=== PATIENT | male | born 1930 | race Caucasian/White ===

== ENCOUNTER 2016-05-28 11:06 | Emergency (ER) | payer MEDICARE ==
[2016-05-28] MEDS ORDERED: MORPHINE SULFATE 5 MG/ML PFS IVP ONE ×2 (13:01→15:00)
[2016-05-28] MEDS ORDERED: PROMETHAZINE HCL 25 MG/ML VIAL IVP ONE (13:01)
[2016-05-28 15:03] LABS: URINE APPEARANCE CLEAR; URINE BILIRUBIN NEGATIVE (NEGATIVE); URINE BLOOD NEGATIVE (NEGATIVE); URINE COLOR YELLOW; URINE GLUCOSE (UA) NEGATIVE (NEGATIVE); URINE KETONE NEGATIVE (NEGATIVE); URINE LEUKOCYTE ESTERASE NEGATIVE (NEGATIVE); URINE NITRITE NEGATIVE (NEGATIVE); URINE PROTEIN NEGATIVE (NEGATIVE); URINE UROBILINOGEN 0.2 E.U./dL (0.20 - 1.00)
--- NOTE | 2016-05-28 15:36 | Emergency Department Record ---
History of Present Illness - General Chief Complaint: Back Pain/Injury Stated Complaint: LOWER BACK/GENTALIA PAIN Time Seen by Provider: 05/28/16 11:57 Source: Patient, Family Mode of Arrival: Ambulatory Limitations: No limitations - History of Present Illness Initial Comments: pt has flank and back and hip pain. pt states this is different then any back pain hes ever had. he has recently had blood in his urine and he has an appt with a urologist but he was told to come here for further evaluation Onset/Timin -: Days(s) Similar Symptoms Previously: Yes Place: Other Severity scale (1-10): 4 Quality: Aching Consistency: Constant Improves With: Sitting upright Worsens With: Movement Context: Unknown Treatments Prior to Arrival: Prescription analgesics - Related Data Home Medications Medication Instructions Recorded Confirmed Last Taken Acetaminophen [Tylenol Extra 500 mg PO ASDIR PRN 04/06/16 05/28/16 Unknown Strength] Acetaminophen with Codeine 1 tab PO ASDIR PRN 04/06/16 05/28/16 05/28/16 [Tylenol with Codeine #3] Aspirin [Aspirin EC] 81 mg PO DAILY 04/06/16 05/28/16 05/27/16 Beclomethasone Dipropionate [Qvar] 8.7 gm IH DAILY 04/06/16 05/28/16 05/28/16 Fluticasone Propionate [Flovent 2 puff EACH NARES DAILY 04/06/16 04/06/16 Hfa] Furosemide [Lasix] 20 mg PO DAILY PRN 04/06/16 05/28/16 Unknown Isosorbide Mononitrate [Imdur] 10 mg PO BID 04/06/16 05/28/16 05/28/16 Loratadine [Alavert] 10 mg PO DAILY 04/06/16 04/06/16 05/28/16 Potassium Chloride [Klor-Con] 10 meq PO DAILY PRN 04/06/16 05/28/16 Unknown Ranitidine HCl [Zantac] 150 mg PO QHS 04/06/16 05/28/16 05/27/16 Solifenacin Succinate [Vesicare] 5 mg PO ASDIR 04/06/16 04/06/16 05/28/16 Tiotropium [place] [Spiriva] 18 mcg IH ASDIR 1204/06/16 05/28/16 Previous Rx's Medication Instructions Recorded Docusate Sodium [Colace] 100 mg PO QHS #20 cap 05/28/16 Hydrocodone/Acetaminophen [[place] 0.5 - 1 tab PO TID PRN #10 tab 05/28/16 5mg/325mg] Allergies Allergy/AdvReac Type Severity Reaction Status Date / Time Sulfa (Sulfonamide Allergy Unknown PT UNSURE Verified 04/06/16 11:41 Antibiotics) OF REACTION [SULFA (SULFONAMIDE ANTIBIOTICS)] Travel Screening - Travel/Exposure Within Last 30 Days Have you traveled within the last 30 days?: No - Travel/Exposure Within Last Year Have you traveled outside the [place] in the last year?: No - Additonal Travel Details Have you been exposed to anyone with a communicable illness?: No - Travel Symptoms Symptom Screening: None Review of Systems Reviewed: No additional complaints except as noted below Constitutional: Reports: As per HPI. Denies: Chills, Fever, Malaise, Night sweats, Weakness, Weight change Eyes: Reports: As per HPI. Denies: Eye discharge, Eye pain, Photophobia, Vision change ENT: Reports: As per HPI. Denies: Congestion, Dental pain, Ear pain, Epistaxis , Hearing loss, Throat pain Respiratory: Reports: As per HPI. Denies: Cough, Dyspnea, Hemoptysis, Stridor, Wheezes Cardiovascular: Reports: As per HPI. Denies: Arrhythmia, Chest pain, Dyspnea on exertion, Edema, Murmurs, Orthopnea, Palpitations, Paroxysmal nocturnal dyspnea, Rheumatic Fever, Syncope Endocrine: Reports: As per HPI. Denies: Fatigue, Heat or cold intolerance, Polydipsia, Polyuria Gastrointestinal: Reports: As per HPI. Denies: Abdominal pain, Constipation, Diarrhea, Hematemesis, Hematochezia, Melena, Nausea, Vomiting Genitourinary: Reports: As per HPI. Denies: Dysuria, Frequency, Hematuria, Incontinence, Retention, Testicular pain, Testicular mass, Urgency Musculoskeletal: Reports: As per HPI. Denies: Arthralgia, Back pain, Gout, Joint swelling, Myalgia, Neck pain Skin: Reports: As per HPI. Denies: Bruising, Change in color, Change in hair/ nails, Lesions, Pruritus, Rash Neurological: Reports: As per HPI. Denies: Abnormal gait, Confusion, Headache, Numbness, Paresthesias, Seizure, Tingling, Tremors, Vertigo, Weakness Psychiatric: Reports: As per HPI. Denies: Anxiety, Auditory hallucinations, Depression, Homicidal thoughts, Suicidal thoughts, Visual hallucinations Hematological/Lymphatic: Reports: As per HPI. Denies: Anemia, Blood Clots, Easy bleeding, Easy bruising, Swollen glands Past Medical History - SOCIAL HISTORY Smoking Status: Former smoker - RESPIRATORY Hx Respiratory Disorders: Yes Hx COPD: Yes - CARDIOVASCULAR Hx Cardio Disorders: Yes Hx Abnormal EKG: Yes Hx Cardiac Cath: Yes Hx Heart Attack: Yes Hx Irregular Heartbeat: Yes - NEURO Hx Neuro Disorders: No - GI Hx GI Disorders: No - Hx Genitourinary Disorders: Yes Hx Prostate Problems: Yes - ENDOCRINE Hx Endocrine Disorders: No - MUSCULOSKELETAL Hx Musculoskeletal Disorders: Yes Hx Arthritis: Yes (bilateral shoulders) - PSYCH Hx Psych Problems: No - HEMATOLOGY/ONCOLOGY Hx Hematology/Oncology Disorders: No Family Medical History Any Significant Family History?: Yes Hx Cancer: Mother Hx Heart Disease: Father Hx Stroke: Father Physical Exam - General General Appearance: Alert, Oriented x3, Cooperative, Moderate distress - Head Head exam: Normal inspection - Eye Eye exam: Normal appearance, PERRL, EOMI Pupils: Normal accommodation - ENT ENT exam: Normal exam, Mucous membranes moist, Normal external ear exam, Normal orophraynx Ear exam: Normal external inspection. negative: External canal tenderness Nasal Exam: Normal inspection. negative: Discharge, Sinus tenderness Mouth exam: Normal external inspection, Tongue normal Teeth exam: Normal inspection. negative: Dental caries Throat exam: Normal inspection. negative: Tonsillar erythema, Tonsillar exudate - Neck Neck exam: Normal inspection, Full ROM. negative: Tenderness - Respiratory Respiratory exam: Normal lung sounds bilaterally. negative: Respiratory distress - Cardiovascular Cardiovascular Exam: Regular rate, Normal rhythm, Normal heart sounds - GI/Abdominal GI/Abdominal exam: Soft, Normal bowel sounds. negative: Tenderness - Rectal Rectal exam: Deferred - exam: Deferred - Extremities Extremities exam: Normal inspection, Full ROM, Normal capillary refill. negative: Tenderness - Back Back exam: Reports: Normal inspection, CVA tenderness (L), Muscle spasm, Tenderness. Denies: Full ROM, Rash noted - Neurological Neurological exam: Alert, CN II-XII intact, Normal gait, Oriented X3 - Psychiatric Psychiatric exam: Normal affect, Normal mood - Skin Skin exam: Dry, Intact, Normal color, Warm Course Vital Signs 05/28/16 05/28/16 11:42 15:02 Temperature 97.7 F Pulse Rate 82 Pulse Rate [ 65 Left] Respiratory 20 20 Rate Blood Pressure 99/76 Blood Pressure 128/75 [Left Arm] Pulse Ox 96 93 L - Reevaluation(s) Reevaluation #1: 05/28/16 15:35 ct neg for acute aorta or renal pathology Medical Decision Making - Lab Data Lab Results 05/28/16 Range/Units 15:00 Urine Color Yellow Urine Appearance Clear Urine pH 6.0 (5.0-8.0) Ur Specific [place] <= 1.005 (1.002-1.030) Urine Protein Negative (NEGATIVE) Urine Glucose (UA) Negative (NEGATIVE) Urine Ketones Negative (NEGATIVE) Urine Blood Negative (NEGATIVE) Urine Nitrite Negative (NEGATIVE) Urine Bilirubin Negative (NEGATIVE) Urine Urobilinogen 0.2 (0.20 - 1.00) E.U./dL Ur Leukocyte Esterase Negative (NEGATIVE) Disposition Disposition: Discharge Clinical Impression: Lumbar radiculopathy Disposition: Home, Self-Care Condition: (1) Good Instructions: Lumbar Radiculopathy (ED) Additional Instructions: follow up with family doctor tomorrow. return sooner if worse. ice or moist heat to back. motrin with food. Prescriptions: Docusate Sodium [Colace] 100 mg PO QHS #20 cap Hydrocodone/Acetaminophen [[place] 5mg/325mg] 0.5 - 1 tab PO TID PRN #10 tab PRN Reason: Pain - General Forms: Patient Portal Access
--- NOTE | 2016-05-31 14:12 | CT SCAN REPORT ---
EXAM: CT OF THE ABDOMEN AND PELVIS WITHOUT CONTRAST HISTORY: LOW BACK AND HIP PAIN. BLOOD CLOTS IN URINE. TECHNIQUE: Routine thin collimation helical CT examination of the abdomen and pelvis was performed without oral or intravenous contrast administration. Lack of oral and IV contrast utilization limits evaluation of the bowel and solid viscera respectively. Comparison: CT of the abdomen and pelvis with contrast dated 12/08/09. FINDINGS: Paraseptal emphysema is suggested in the lung bases with mild superimposed atelectasis. A couple small nodules are noted in the anterior right lung base, the largest of which measures 3 mm in diameter. These are stable since 2010 and are consistent with post inflammatory nodules. A similar subpleural nodule is noted in the anterior left lower lobe measuring 3 mm, also unchanged and post inflammatory. No pleural or pericardial effusion. The heart is not enlarged. Post median sternotomy changes redemonstrated. A moderate sized hiatal hernia persist. A tiny hypodense lesion is noted in the high left liver lobe and another more inferiorly in the left liver lobe. These are stable and are consistent with cysts. A previously demonstrated cyst in the high right liver lobe is not visualized with confidence. No new suspicious hepatic lesion is seen. The spleen, pancreas, and adrenal glands are normal in appearance. The gallbladder is surgically absent. No biliary ductal dilatation is seen. The previously demonstrated cyst arising from the lateral lower pole of the left kidney measuring 1.5 cm is stable. No new suspicious renal mass nor nephrolithiasis. No gross hydronephrosis. No definite ureteral calculus is seen though the ureters are not optimally visualized distally due to adjacent unopacified bowel loops and vasculature. No intrinsic urinary bladder abnormality is seen though it is moderately distended. Post TURP defect is suspected versus surgical absence of the prostate. No gross bowel dilatation nor bowel wall thickening. There is diverticulosis scattered throughout the colon most pronounced distally without evidence of diverticulitis. A small fat filled left inguinal hernia is present appearing uncomplicated. There are degenerative changes scattered within the visualized spine associated with levoconvex scoliosis of the lumbar spine. IMPRESSION: 1. NO CONVINCING CT EVIDENCE OF NEPHROLITHIASIS, OBSTRUCTIVE RENAL COLLECTING SYSTEM CALCULUS, NOR ACUTE INTRAABDOMINAL/INTRAPELVIC PROCESS. 2. THERE HAS EITHER BEEN INTERVAL TURP OR COMPLETE PROSTATECTOMY. THERE IS MODERATE DISTENTION OF THE URINARY BLADDER. 3. MODERATE AMOUNT OF STOOL WITHIN THE COLON. 4. DIVERTICULOSIS WITHOUT EVIDENCE OF DIVERTICULITIS. 5. CYSTS WITHIN THE LIVER AN LEFT KIDNEY ARE STABLE. 6. STABLE NODULES IN EACH LUNG BASE. MODERATE SIZED HIATAL HERNIA. JOB NUMBER: [id number] [facility]
== END 2016-05-28 16:16 | disposition home or self-care (01) ==
LOC: ER 11:06
DX: M54.16 Radiculopathy, lumbar region (principal); R10.9 Unspecified abdominal pain
CPT/HCPCS: 99284 ×2; 96376; 96374; 96375; 81003; 74176; J2270; J2550

== ENCOUNTER 2018-09-20 11:18 | Inpatient (IN) | payer MEDICARE ==
[2018-09-20] MEDS: HYDROCODONE/APAP 7.5/325MG TABLET PO PRN (21:39)
[2018-09-20] MEDS: SENNOSIDES/DOCUSATE SODIUM UD CAPSULE PO PRN (21:40)
[2018-09-21] MEDS: HYDROCODONE/APAP 7.5/325MG TABLET PO PRN ×4 (03:00→17:10)
--- NOTE | 2018-09-21 07:24 | Swing Bed Certification/Recert ---
Initial Certification Due: 09/20/18 14 Day Re-Cert Due: 10/04/18 44 Day Re-Cert Due: 11/03/18 74 Day Re-Cert Due: 12/03/18 CERTIFICATION CERTIFICATION OF PATIENT ADMISSION Required at time of admission. Due: 09/20/18 I certify that SNF services are required to be given on an inpatient basis because of the above named patient's need for halfway care on a continui ng basis for the condition(s) for which he/she was receiving inpatient hospital services prior to his/her transfer to the SNF. The patient's current needs for skilled care includes: [PT/OT, eval for home PT/OT needs] Laura Briseno, N.P. 09/20/18
--- NOTE | 2018-09-21 07:26 | History & Physical ---
History of Present Illness - Date Date of Service for History & Physical: 09/21/18 - History of Present Illness Admitting Diagnosis: right shoulder replacement History of Present Illness: Mr. Roger is an 88 year old male who is admitted in the swing bed program for weakness secondary to reverse right total shoulder arthroplasty with Dr. Martinez on 09/19/18. Surgery was done for dx of biceps tendinitis, OA, and rotator cuff arthropathy of right shoulder. Post op instructions include: Non- weightbearuing on RUE, okay to shower on postop day 3, okay to remove aquacel dressing on postop day 7, f/u with Dr. Martinez as scheduled. His hx includes left eye blindness, and urinary frequency/incontinence. PT/OT eval ordered for Sunday morning, 09/23. Baseline CBC and CMP ordered for tomorrow morning. Will continue to monitor. PCP: Dr. Anaya General - Cognitive Patterns Orientation: Oriented x3 - Communication Preferred Language?: Icelandic Pathology Transcriptionist Required: No Level of Education: [employer] Preferred Method of Learning: Doing Comprehension Ability: No Impairment Select best description of speech pattern: Clear Speech Ability to express ideas and wants: Understood Understanding verbal content: Understands - Psychosocial Well-Being Usual Living Arrangement: Children Living Arrangement Comment: Dgtr Doris - Physical Functioning Activity Level: Up with assist x1 Turning: With partial assist ROM Ability: Moves all extremities Ambulation Ability: Needs Assist Bed Mobility: Needs Assist Transfer Ability: Needs Assist Bathing Ability: Needs Assist Personal Hygiene: Dependent Dressing Ability: Dependent Eating (Feeding) Ability: Dependent Toileting Ability: Dependent Administer Own Medication: Dependent - Continence Bowel Pattern: Normal for Patient Bladder Pattern: Normal, Urgency, Incontinent Urinary Incontinence: Functional - Dental Status Broken or loosely fitting full or partial dentures: No No natural teeth or tooth fragment(s) (edentulous): No Abnormal mouth tissue (ulcers, masses, oral lesions, etc.): No Obvious or likely cavity or broken natural teeth: No Inflamed or bleeding gums or loose natural teeth: No Mouth/facial pain, discomfort or difficulty chewing: No - Nutrition Screening Poor oral intake > 1 week: No Unplanned weight loss in specified time frame: No Nutrition Support via tube feedings or parenteral nutrition: No Pressure Ulcer: No Significantly underweight define as BMI <18.5 kg/m2: No Albumin <2.5mg/dL: No Persistent nausea/vomiting/diarrhea >3 days: No Difficulty chewing/swallowing/mouth sores: No Admitting Diagnosis: Yes Nutrition Risk Score: Low Risk Review of Systems Reviewed: No additional complaints except as noted below Constitutional: Reports: As per HPI, Weakness. Denies: Chills, Fever, Malaise, Night sweats, Weight change Eyes: Reports: Eye discharge (slight crusting of left eye), Other (blind in left eye). Denies: Eye pain, Photophobia, Vision change ENT: Reports: As per HPI. Denies: Congestion, Dental pain, Ear pain, Epistaxis, Hearing loss, Throat pain Respiratory: Reports: As per HPI. Denies: Cough, Dyspnea, Hemoptysis, Stridor, Wheezes Cardiovascular: Reports: As per HPI. Denies: Arrhythmia, Chest pain, Dyspnea on exertion, Edema, Murmurs, Orthopnea, Palpitations, Paroxysmal nocturnal dyspnea, Rheumatic Fever, Syncope Endocrine: Reports: As per HPI. Denies: Fatigue, Heat or cold intolerance, Polydipsia, Polyuria Gastrointestinal: Reports: As per HPI. Denies: Abdominal pain, Constipation, Diarrhea, Hematemesis, Hematochezia, Melena, Nausea, Vomiting Genitourinary: Reports: As per HPI. Denies: Dysuria, Frequency, Hematuria, Incontinence, Retention, Testicular pain, Testicular mass, Urgency Musculoskeletal: Reports: Other (right arm imobilized). Denies: Arthralgia, Back pain, Gout, Joint swelling, Myalgia, Neck pain Skin: Reports: As per HPI. Denies: Bruising, Change in color, Change in hair/nails, Lesions, Pruritus, Rash Neurological: Reports: As per HPI. Denies: Abnormal gait, Confusion, Headache, Numbness, Paresthesias, Seizure, Tingling, Tremors, Vertigo, Weakness Psychiatric: Reports: As per HPI. Denies: Anxiety, Auditory hallucinations, Depression, Homicidal thoughts, Suicidal thoughts, Visual hallucinations Hematological/Lymphatic: Reports: As per HPI. Denies: Anemia, Blood Clots, Easy bleeding, Easy bruising, Swollen glands Past Medical History - SOCIAL HISTORY Smoking Status: Former smoker Alcohol Use: None - SURGICAL HISTORY Past Surgical History: apendix. gallbladder. heart bypass X2 - RESPIRATORY Hx Respiratory Disorders: Yes Hx COPD: Yes - CARDIOVASCULAR Hx Cardio Disorders: Yes Hx Abnormal EKG: Yes Hx Cardiac Cath: Yes Hx Heart Attack: Yes Hx Irregular Heartbeat: Yes - NEURO Hx Neuro Disorders: No - GI Hx GI Disorders: No - Hx Genitourinary Disorders: Yes Hx Bladder Problem: Yes (prostate surgery) Hx Prostate Problems: Yes Comment:: No control after surgery - ENDOCRINE Hx Endocrine Disorders: No Hx Diabetes: No Hx Thyroid Disease: No - MUSCULOSKELETAL Hx Musculoskeletal Disorders: Yes Hx Arthritis: Yes (bilateral shoulders) - PSYCH Hx Psych Problems: No - HEMATOLOGY/ONCOLOGY Hx Hematology/Oncology Disorders: No Family Medical History Any Significant Family History?: Yes Hx Cancer: Mother, Brother/Sister Hx Heart Disease: Father Hx Stroke: Father H&P Meds/Allergies - Allergies Allergies: Allergies Allergy/AdvReac Type Severity Reaction Status Date / Time Sulfa (Sulfonamide Allergy Unknown PT UNSURE Unverified 09/03/18 15:00 Antibiotics) OF REACTION [SULFA (SULFONAMIDE ANTIBIOTICS)] - Active Medications Active Medications: Current Medications Hydrocodone Bitart/Acetaminophen ([place] 7.5mg/325mg) 1 each PO Q4H PRN PRN Reason: PAIN - SEVERE (8-10) Last Admin: 09/21/18 03:00 Dose: 1 each Documented by: Patient Own Med: (Vesicare 10mg) 1 each PO DAILY CESAR Senna/Docusate Sodium (Senna Plus) 2 each PO BID PRN PRN Reason: CONSTIPATION Last Admin: 09/20/18 21:40 Dose: 2 each Documented by: Physical Exam - Vital Signs Vital Signs: Vital Signs - Last 24 Hrs Temp Pulse Resp BP Pulse Ox 09/20/18 20:00 98.1 F 82 16 127/71 09/20/18 17:05 98.9 F 77 16 135/67 91 L - General General Appearance: Alert, Oriented x3, Cooperative, No acute distress - Head Head exam: Normal inspection - Eye Eye exam: PERRL, Other (slight crusting/redness of left eyelid) Pupils: Normal accommodation - ENT ENT exam: Normal exam, Mucous membranes moist, Normal external ear exam, Normal orophraynx, TM's normal bilaterally Ear exam: Normal external inspection. negative: External canal tenderness Nasal Exam: Normal inspection. negative: Discharge, Sinus tenderness Mouth exam: Normal external inspection, Tongue normal Teeth exam: Normal inspection. negative: Dental caries Throat exam: Normal inspection. negative: Tonsillar erythema, Tonsillar exudate - Neck Neck exam: Normal inspection, Full ROM. negative: Tenderness - Respiratory Respiratory exam: Decreased breath sounds - Cardiovascular Cardiovascular Exam: Regular rate, Normal rhythm, Normal heart sounds - GI/Abdominal GI/Abdominal exam: Soft, Normal bowel sounds. negative: Tenderness - exam: Deferred - Extremities Extremities exam: Normal inspection, Normal capillary refill, Other (Right arm/shoulder imobilizer in place). negative: Tenderness - Back Back exam: Reports: Normal inspection. Denies: Muscle spasm, Rash noted, Tenderness - Neurological Neurological exam: Alert, Oriented X3, Reflexes normal - Psychiatric Psychiatric exam: Normal affect, Normal mood - Skin Skin exam: Dry, Intact, Normal color, Warm H&P Results - Labs Result Diagrams: 09/22/18 06:00 09/22/18 06:00 Discharge Potential - Discharge Needs Patient Discharge Plan Description: Return Home Community Services Needed at Discharge: None Plan - Swing Bed Certification Initial Certification Due: 09/20/18 14 Day Re-Cert Due: 10/04/18 44 Day Re-Cert Due: 11/03/18 74 Day Re-Cert Due: 12/03/18 - Detailed Diagnosis and Plan (1) Weakness Current Visit: Yes Status: Acute Base Code: R53.1 - WEAKNESS Comment: 09/21/18: -Weakness/deconditioning secondary to right shoulder total reverse arthroplasty -PT/OT to start Saturday 09/23 (2) Status post replacement of right shoulder joint Current Visit: Yes Status: Acute Base Code: Z96.611 - PRESENCE OF RIGHT ARTIFICIAL SHOULDER JOINT Comment: 09/21/18 -reverse right total shoulder arthroplasty with Dr. Martinez on 09/19/18. Surgery was done for dx of biceps tendinitis, OA, and rotator cuff arthropathy of right shoulder. Post op instructions include: Non-weightbearuing on RUE, okay to shower on postop day 3, okay to remove aquacel dressing on postop day 7, f/u with Dr. Martinez as scheduled. (3) At risk for deep venous thrombosis Current Visit: Yes Status: Acute Base Code: Z91.89 - OTH PERSONAL RISK FACTORS, NOT ELSEWHERE CLASSIFIED Comment: 09/21/18: -Will hold prophylaxis due to advanced age -Nursing to encourage ambulation (4) Full code status Current Visit: Yes Status: Acute Base Code: Z78.9 - OTHER SPECIFIED HEALTH STATUS Comment: 09/21/18: -Pt. is a full code
[2018-09-21] MEDS: VESICARE 10 MG PO SCH (09:32)
[2018-09-21] MEDS ORDERED: PROPYLENE GLYCOL OP PRN (12:43)
[2018-09-21] MEDS ORDERED: POLYETHYLENE GLYCOL 400 OP PRN (12:43)
[2018-09-21] MEDS: SENNOSIDES/DOCUSATE SODIUM UD CAPSULE PO PRN (17:10)
[2018-09-22] MEDS: HYDROCODONE/APAP 7.5/325MG TABLET PO PRN ×4 (06:52→20:36)
[2018-09-22 06:59] LABS: BASO % 0.4 % (0-6); EOS % 1.1 % (0-6); GRAN % 74.7 % (47-80); HEMATOCRIT 46.2 % (42.0-52.0); HEMOGLOBIN 15.3 gm/dl (14.0-18.0); LYMPH % 9.1 % (16-45); MEAN CELL VOLUME 101.5 fl (81-97); MEAN CORPUSCULAR HEMOGLOBIN 33.6 pg (27-33); MEAN CORPUSCULAR HGB CONC 33.1 g/dl (32-36); MEAN PLATELET VOLUME 11.1 fl (7.4-10.4); MONO % 14.7 % (0-9); PLATELET COUNT 123 K/uL (130-400); RED BLOOD COUNT 4.55 M/uL (4.40-5.70); RED CELL DISTRIBUTION WIDTH 13.9 % (11.5-14.5)
[2018-09-22 07:15] LABS: ALB/GLOB RATIO 1.5 (1.1-1.8); ALBUMIN 3.8 g/dL (4.0-5.0); ALKALINE PHOSPHATASE 59 U/L (40-129); ALT/SGPT 5 U/L (<41); AST/SGOT 13 U/L (10.0-50.0); BLOOD UREA NITROGEN 19 mg/dL (8-23); CREATININE 0.8 mg/dL (0.7-1.2); EST GLOMERULAR FILTRATION RATE > 60 mL/min; GLUCOSE,RANDOM 114 mg/dL (74-109); TOTAL PROTEIN 6.4 g/dL (6.6-8.7)
[2018-09-22] MEDS: VESICARE 10 MG PO SCH (09:40)
[2018-09-22] MEDS: SENNOSIDES/DOCUSATE SODIUM UD CAPSULE PO PRN (09:41)
[2018-09-23] MEDS: HYDROCODONE/APAP 7.5/325MG TABLET PO PRN ×3 (08:36→16:26)
[2018-09-23] MEDS: VESICARE 10 MG PO SCH (09:12)
--- NOTE | 2018-09-23 11:02 | Rehab Evaluation ---
Patient Information - Patient Information Diagnosis: deconditioning s/p R reverse total shouler Ordered Treatment: PT Evaluate and Treat Status: Initial Evaluation Surgery: Yes (Reverse Total shoulder) Date of Surgery: 09/19/18 Past Medical/Surgical Hx: PAST MEDICAL/SURGICAL HISTORY Past Surgical History apendix gallbladder heart bypass X2 PMH - Respiratory Hx Respiratory Disorders Yes Hx Chronic Obstructive Yes Pulmonary Disease (COPD) PMH - Cardiovascular Hx Cardiovascular Disorders Yes Hx Abnormal EKG Yes Hx Cardiac Catheterization Yes Hx Heart Attack Yes Hx Irregular Heartbeat Yes PMH - Neuro Hx Neurological Disorders No PMH - GI Hx Gastrointestinal Disorders No PMH - Hx Genitourinary Disorders Yes Hx Bladder Problem Yes: prostate surgery Hx Prostate Problems Yes Comment: No control after surgery PMH - Endocrine Hx Endocrine Disorders No Hx Diabetes No Hx Thyroid Disease No PMH - Musculoskeletal Hx Musculoskeletal Disorders Yes Hx Arthritis Yes: bilateral shoulders PMH - Psych Hx Psychiatric Problems No PMH - Hematology/Oncology Hx Hematology/Oncology No Disorders Premorbid Status: Detail (Prior to surgery, the patient was independent with all ADL's and per his report was ambulatory without device. The patient's daughter and son in law completed all sales order administrator.) Social History: Detail (The patient lives in a 3 story house with his daughter and son-in-law with his bedroom on the third floor and bathrooms on the first and third floor. Flights of 7 steps with 2 railings were present between the floors. Three steps are present at the home enterance from the porch with a handrail on the R side ascending the stairs. The bathroom the patient primarily uses is on the first floor and is equipped with a walk in shower with a seat (patient stands for showering) and an elevated toilet. No grab bars are present. The patient has a 4 wheeled walker, SBQC and a walking stick.) Precautions: [place], Fall, Other (NWB R UE, Reverse TSR precautions.) - Time With Patient Total Time Spent With Patient (Min): 30 Treatment Procedures: Detail (Initial evaluation,gait training) Subjective Information - Subjective Information Per Patient (The patient had complaints of bilateral cervical region pain level 7 at the highest using 0-10 pain scale.) Objective Data - Mental Status Patient Orientation: Oriented x3 - Visual Perception Deficit (visual deficit L eye.) - ROM Not within normal limits (The patient's LE AROM was WFL except for L knee lacking 5 degrees of extenion.) - Strength/Tone Not within normal limits (The patient's bilateral LE strength was hip flexors 4+/5, hip adductors 4/5, hip abductors 5/5, knee extensors 4+/5, knee flexors 4+/5, ankle musculature 4+/5.) - Transfers Needs Assist (Moderate assist of one with sit to stand transfer and CG for stand to sit.) - Balance Balance Sitting: Fair Balance Standing: Poor (The patient's balance was not formally tested using an objective balance test. Patient functionally when standing required the support of back of legs on chair to pull his pants up.) - Gait Detail (The patient ambulated with [place] Cane with CG of 1 and maximal verbal cues for proper placement, a distance of 40 feet x 1. The patient's gait pattern was charecterized by shuffling gait, decreased stride length bilaterally, occasional posterior trunk lean, increased trunk and cervical flexion.) Therapy Assessment - Therapy Assessment Detail (The patient requires assistance with transfers and ambulation. The pa tient also exhibits balance deficits. The patient's family is to bring his own cane in. Feel the patient would benefit from balance exercises and gait training on levels and stairs to return to previous functional level.) Problem List - Problem List Physical Therapy Problem List: Detail (1) Assistance with transfers and ambulation 2) Balance deficits 3) Numerous gait deviations which effect safe ambulation without assistance.) Goals - Goals Physical Therapy Goals: 1) The patient will be independent to supervision with ambulation with appropriate assistive device household distances. 2) The patient will ambulate on flights of stairs with supervision for safety 3) PT will assess the patient's balance using an objective balance test 4) PT will assess the patient's bed mobility. 5) The patient will be independent with all transfers including sit to and from stand transfers. Prognosis - Prognosis Moderate Plan - Plan Physical Therapy Plan: PT 1-2 times a day M-F for gait training, transfer training, bed mobility, balance exercises
--- NOTE | 2018-09-23 11:28 | Rehab Evaluation ---
Patient Information - Patient Information Diagnosis: Right shoulder replacement Ordered Treatment: OT Evaluate and Treat Status: Initial Evaluation Surgery: Yes (Reverse Total shoulder arthroplasty - right) Date of Surgery: 09/19/18 Past Medical/Surgical Hx: PAST MEDICAL/SURGICAL HISTORY Past Surgical History apendix gallbladder heart bypass X2 PMH - Respiratory Hx Respiratory Disorders Yes Hx Chronic Obstructive Yes Pulmonary Disease (COPD) PMH - Cardiovascular Hx Cardiovascular Disorders Yes Hx Abnormal EKG Yes Hx Cardiac Catheterization Yes Hx Heart Attack Yes Hx Irregular Heartbeat Yes PMH - Neuro Hx Neurological Disorders No PMH - GI Hx Gastrointestinal Disorders No PMH - Hx Genitourinary Disorders Yes Hx Bladder Problem Yes: prostate surgery Hx Prostate Problems Yes Comment: No control after surgery PMH - Endocrine Hx Endocrine Disorders No Hx Diabetes No Hx Thyroid Disease No PMH - Musculoskeletal Hx Musculoskeletal Disorders Yes Hx Arthritis Yes: bilateral shoulders PMH - Psych Hx Psychiatric Problems No PMH - Hematology/Oncology Hx Hematology/Oncology No Disorders Premorbid Status: Detail (Prior to surgery, the patient was independent with all ADL's and per his report was ambulatory without device. The patient's daughter and son in law completed all home mgmt, meal prep and laundry tasks.) Social History: Detail (The patient lives in a tri level house with his daughter and son-in-law with his bedroom on the third floor and bathrooms on the first and third floor. Flights of 7 steps with 2 railings are present between the floors. Three steps are present at the home entrance from the porch with a handrail on the R side ascending the stairs. The bathroom the patient primarily uses is on the first floor and is equipped with a walk in shower with a seat (patient stands for showering) and an elevated toilet with a grab bar on the left side. 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 90 degrees, left elbow, wrist and hand AROM WNL.) - Strength/Tone Not within normal limits (Right UE not tested due to surgery, left shoulder 3+/5, left elbow and progressive care nurse 4/5) - Coordination Appears within normal limits for therapeutic activities - Transfers Needs Assist (Pt required min assist x 2 for sit to stand initially and then mod assist x 1 on second sit to stand transfer. Pt required verbal cueing for technique.) - Balance Balance Sitting: Good Balance Standing: Fair - Sensation Intact - Gait Detail (Pt ambulating short distances with any walker and CG assist.) - ADL's/IADL's Detail (Pt required total assist to doff and don sling, mod assist to don pants over feet and to pull pants over hips, total assist to don socks, mod to max assist to don tennis shoes. Pt has not attempted showering and he reports nursing is assisting with toileting.) Therapy Assessment - Therapy Assessment Detail (Pt presents with decreased Ind with self care tasks, functional mobility and UE function due to surgery.) Problem List - Problem List Occupational Therapy Problem List: Detail (1. Decreased Ind with total body dressing. 2. Decreased Ind with grooming/hygiene. 3. Decreased Ind with showering. 4. Decreased Ind with right UE exercises) Goals - Goals Occupational Therapy Goals: 1. Pt will be Ind with modified total body dressing. 2. Pt will be safe and Ind with showering in sitting. 3. Pt will be Ind with modified grooming/hygiene tasks. 4. Pt will be Ind with right UE exercises per protocol. Prognosis - Prognosis Good Plan - Plan Occupational Therapy Plan: OT 2-4 times per week to address self cares and UE function.
[2018-09-24] MEDS: HYDROCODONE/APAP 7.5/325MG TABLET PO PRN ×2 (02:31→18:39)
[2018-09-24] MEDS: VESICARE 10 MG PO SCH (10:35)
[2018-09-24] MEDS ORDERED: ACETAMINOPHEN 500 MG TABLET PO ONE (12:03)
--- NOTE | 2018-09-24 13:58 | Physical Therapy Tx Note ---
Physical Therapy Tx Note - Treatment Note Tolerated: Good Total Time Spent With Patient: 30 Physical Therapy Tx Note: Detail (Pt was sitting in a chair when PT arrived. Pt ambulated 60ft with single point cane with wide support requiring contact guard assist. Pt required cues for stepping with correct foot. Pt performed AROM elbow flexion/extension x15, Wrist flexion/extension x15, wrist radial/ulna deviation x15, opposition x15, and codmans 1 min all on L. Patient was independent with transfers.The patient's balance was tested using the Tinetti Assessment Tool and was rated as 9/28 which is in the high risk for fall category. Pt was left in chair with call light.) Physical Therapy Problem List: Detail (1) Assistance with transfers and ambulation 2) Balance deficits 3) Numerous gait deviations which effect safe ambulation without assistance.) Physical Therapy Goals: 1) The patient will be independent to supervision with ambulation with appropriate assistive device household distances. 2) The patient will ambulate on flights of stairs with supervision for safety 3) PT will assess the patient's balance using an objective balance test 4) PT will assess the patient's bed mobility. 5) The patient will be independent with all transfers including sit to and from stand transfers. Physical Therapy Plan: PT 1-2 times a day M-F for gait training, transfer training, bed mobility, balance exercises
--- NOTE | 2018-09-24 15:27 | Occupational Therapy Tx Note ---
Occupational Therapy Tx Note - Treatment Note Tolerated: Good Total Time Spent With Patient: 45 (ADL) Occupational Therapy Treatment Note: Detail (S: Pt resting in bed, feels very sleepy today. O: Supine to sit with verbal cues to not weight bear on right UE. Sit to stand and amb to bathroom with any walker and min to CG assist, pt had one slight loss of balance but was able to maintain upright. Pt completed toileting with CG assist to maintain balance while pulling pants down. Pt educated on alternate toileting hygiene and he was able to demonstrate Indly using left UE. Sit to stand from toilet with min assist and he was able to pull up and fasten pants with CG and verbal instruction for one handed technique. Pt amb to sink with any walker and CG assist. Pt able to static stand at sink and complete shaving and washing face using LE. Pt amb to chair with any walker and CG assist and was seated in chair. Pt educated on modified UE dressing techniques and he was able to use right UE as an assist. Sling doffed per OT. Pt doffed button down shirt with min assist and donned clean button down shirt with min assist using one handed technique with verbal cueing. Pt completed right elbow flexion and extension x 3 reps. Attempted pendulum exercises but pt was very fatigue. Sling donned per OT and pt left up in chair with lunch tray set up. A: Min assist for modified UE dressing techniques, Ind with grooming/shaving, Min-CG assist needed for functional mobility needed for self cares.) Occupational Therapy Problem List: Detail (1. Decreased Ind with total body dressing. 2. Decreased Ind with grooming/hygiene. 3. Decreased Ind with showering. 4. Decreased Ind with right UE exercises) Occupational Therapy Goals: 1. Pt will be Ind with modified total body dressing. 2. Pt will be safe and Ind with showering in sitting. 3. Pt will be Ind with modified grooming/hygiene tasks. 4. Pt will be Ind with right UE exercises per protocol. Prognosis: Good Occupational Therapy Plan: OT 2-4 times per week to address self cares and UE function.
[2018-09-24 15:55] LABS: URINE APPEARANCE CLEAR; URINE BILIRUBIN NEGATIVE (NEGATIVE); URINE BLOOD NEGATIVE (NEGATIVE); URINE COLOR YELLOW; URINE GLUCOSE (UA) NEGATIVE (NEGATIVE); URINE KETONE NEGATIVE (NEGATIVE); URINE LEUKOCYTE ESTERASE NEGATIVE (NEGATIVE); URINE NITRITE NEGATIVE (NEGATIVE); URINE PROTEIN NEGATIVE (NEGATIVE); URINE UROBILINOGEN 0.2 E.U./dL (0.20 - 1.00)
[2018-09-25] MEDS: VESICARE 10 MG PO SCH (10:00)
--- NOTE | 2018-09-25 10:26 | Physician Progress Note ---
Subjective - Date Date of Progress Note: 09/25/18 - Admitting Diagnosis Diagnosis: multiple rehab services post right shoulder replacement - Subjective Events since last encounter: Nursing reporting for the past 24 hours has been hallucinating, seeing beds on the wall, seems to happening after he is taking [place]. Has tolerated it up to this point. Did hold [place] for the afternoon yesterday and treated pain with Tylenol ES with no relief in pain. Did have a nap yesterday afternoon and returned to baseline cognition with no further hallucinations. [place] was repeated later in the evening with return of hallucinations.Also noting he is no t sleeping well at night and is having daytime sleepiness and napping. During care conference daughter, Doris, reports he does have a hx of sleep apnea, did use a CPAP up until about 3 years ago because the machine was old and he was getting frequent sinus infections. He ended up throwing the machine away and is now in process of completing a new sleep study to get CPAP replacement. Patient reports prior to admit he was waking up at night more times that he can count. Is waking up multiple times here but is unable to recount if it is due to pain or spontaneous. He is complaining of restless legs in the night to the point of causing ankle sores, this has been happening for several years and has mentioned it to PCP- plan was to complete sleep study first before initiating medications. Nursing Care Plan Problem List Activity Intolerance (Swing Bed) Start: 09/20/18 17:35 Freq: Status: Active Protocol: Created 09/20/18 17:35 MMT (Rec: 09/20/18 17:35 MMT [id number]) Altered Thought Process (Fall Risk) Start: 09/20/18 17:46 Freq: Status: Active Protocol: Created 09/20/18 17:46 MMT (Rec: 09/20/18 17:46 MMT [id number]) Impaired Mobility (Fall Risk) Start: 09/20/18 17:46 Freq: Status: Active Protocol: Created 09/20/18 17:46 MMT (Rec: 09/20/18 17:46 MMT [id number]) Knowledge Deficit (Swing Bed) Start: 09/20/18 17:35 Freq: Status: Active Protocol: Created 09/20/18 17:35 MMT (Rec: 09/20/18 17:35 MMT [id number]) Pain (Swing Bed) Start: 09/20/18 17:35 Freq: Status: Active Protocol: Created 09/20/18 17:35 MMT (Rec: 09/20/18 17:35 MMT [id number]) Risk for Injury (Fall Risk) Start: 09/20/18 17:46 Freq: Status: Active Protocol: Created 09/20/18 17:46 MMT (Rec: 09/20/18 17:46 MMT [id number]) Skin Integrity, Impaired (Swing Bed) Start: 09/20/18 19:09 Freq: Status: Active Protocol: Created 09/20/18 19:09 MMT (Rec: 09/20/18 19:09 MMT [id number]) - Subjective Detail Comment: No additional complaints except as noted below Neurological: Reports: Confusion General - Cognitive Patterns Speech: Soft Thought Process: Intact Thought Content: Normal - Communication Select best description of speech pattern: Clear Speech Ability to express ideas and wants: Understood Understanding verbal content: Understands - Mood and Behavior Patterns Appearance: Well Groomed Mood: Normal Attitude: Cooperative Motor Activity: Calm Affect: Appropriate Hallucinations: Denies - Physical Functioning Activity Level: Up with assist x1 Turning: With partial assist ROM Ability: Moves all extremities Activity Level Comment: Pt redirected and educated often in room and with the use of walker by RN, staff and PT/OT. Ambulation Ability: Needs Assist Bed Mobility: Needs Assist Transfer Ability: Needs Assist Bathing Ability: Needs Assist Personal Hygiene: Needs Assist Dressing Ability: Needs Assist Eating (Feeding) Ability: Needs Assist Toileting Ability: Needs Assist Administer Own Medication: Needs Assist - Continence Bowel Pattern: Normal for Patient Bladder Pattern: Normal, Urgency, Incontinent Urinary Incontinence: Functional Meds/Allergies - Allergies Allergies Allergy/AdvReac Type Severity Reaction Status Date / Time Sulfa (Sulfonamide Allergy Unknown PT UNSURE Unverified 09/03/18 15:00 Antibiotics) OF REACTION [SULFA (SULFONAMIDE ANTIBIOTICS)] - Active Medications Current Medications Patient Own Med: (Vesicare 10mg) 1 each PO DAILY CESAR Last Admin: 09/24/18 10:35 Dose: 1 each Documented by: Senna/Docusate Sodium (Senna Plus) 2 each PO BID PRN PRN Reason: CONSTIPATION Last Admin: 09/22/18 09:41 Dose: 2 each Documented by: Objective - Vital Signs Vital Signs: Vital Signs - Last 24 Hrs Temp Pulse Resp BP Pulse Ox 09/25/18 07:52 98.1 F 88 18 144/77 95 09/24/18 20:00 97.2 F L 82 18 110/70 97 - General General Appearance: Alert, Oriented x3, Cooperative, No acute distress - Head Head exam: Normal inspection - Eye Eye exam: PERRL, Other (bilat ectropion) Pupils: Normal accommodation - ENT ENT exam: Normal exam, Mucous membranes moist, Normal external ear exam, Normal orophraynx, TM's normal bilaterally Ear exam: Normal external inspection. negative: External canal tenderness Nasal Exam: Normal inspection. negative: Discharge, Sinus tenderness Mouth exam: Normal external inspection, Tongue normal Teeth exam: Normal inspection. negative: Dental caries Throat exam: Normal inspection. negative: Tonsillar erythema, Tonsillar exudate - Neck Neck exam: Normal inspection, Full ROM. negative: Tenderness - Respiratory Respiratory exam: Normal lung sounds bilaterally - Cardiovascular Cardiovascular Exam: Regular rate, Normal heart sounds, Irregular rhythm Peripheral Pulses: 2+: Radial (R), Radial (L) - GI/Abdominal GI/Abdominal exam: Soft, Normal bowel sounds. negative: Tenderness - exam: Deferred - Extremities Extremities exam: Normal inspection, Normal capillary refill, Other (Right arm/shoulder imobilizer in place, neurvascular and function right hand intact). negative: Tenderness - Back Back exam: Reports: Normal inspection. Denies: Muscle spasm, Rash noted, Tenderness - Neurological Neurological exam: Alert, Oriented X3, Reflexes normal - Psychiatric Psychiatric exam: Normal affect, Normal mood - Skin Skin exam: Dry, Intact, Normal color, Warm H&P Results - Labs Result Diagrams: 09/22/18 06:05 09/22/18 06:05 Labs Last 24 Hours: Laboratory Results - last 24 hr 09/24/18 15:40 Urine Color Yellow Urine Appearance Clear Urine pH 6.0 Ur Specific [place] 1.010 Urine Protein Negative Urine Glucose (UA) Negative Urine Ketones Negative Urine Blood Negative Urine Nitrite Negative Urine Bilirubin Negative Urine Urobilinogen 0.2 Ur Leukocyte Esterase Negative Discharge Potential - Discharge Needs Community Services Used Prior to Admission: None Patient Discharge Plan Description: Return Home Community Services Needed at Discharge: None Plan - Swing Bed Certification Initial Certification Due: 09/20/18 14 Day Re-Cert Due: 10/04/18 44 Day Re-Cert Due: 11/03/18 74 Day Re-Cert Due: 12/03/18 - Detailed Diagnosis and Plan (1) Weakness Current Visit: Yes Status: Acute Base Code: R53.1 - WEAKNESS Comment: : -Weakness/deconditioning secondary to right shoulder total reverse arthroplasty -Continue PT/OT towards discharge goals (2) Status post replacement of right shoulder joint Current Visit: Yes Status: Acute Base Code: Z96.611 - PRESENCE OF RIGHT ARTIFICIAL SHOULDER JOINT Comment: 09/25/18 -reverse right total shoulder arthroplasty with Dr. Martinez on 09/19/18. Surgery was done for dx of biceps tendinitis, OA, and rotator cuff arthropathy of right shoulder. Post op instructions include: Non-weightbearuing on RUE, okay to shower on postop day 3, okay to remove aquacel dressing on postop day 7, f/u with Dr. Martinez as scheduled. -DC [place] due to adverse reaction. Will control pain using Tylenol 1000mg TID, Ibuprofen 600mg QID, Tramadol 50mg Q6hr PRN breakthrough pain - Polar pack (3) Insomnia Current Visit: Yes Status: Acute Qualifiers: Insomnia type: due to medical condition Qualified Code(s): G47.01 - Insomnia due to medical condition Base Code: G47.00 - INSOMNIA, UNSPECIFIED Comment: 09/25/18 - Does have hx GEOVANNA, does not currently have CPAP, sleep study in process - Melatonin 5mg Q hs - Will address potential RLS after reassessment of new pain regimen (norco causing hallucinations) (4) Full code status Current Visit: Yes Status: Acute Base Code: Z78.9 - OTHER SPECIFIED HEALTH STATUS Comment: 09/25/18: -Pt. is a full code (5) At risk for deep venous thrombosis Current Visit: Yes Status: Acute Base Code: Z91.89 - OTH PERSONAL RISK FACTORS, NOT ELSEWHERE CLASSIFIED Comment: 09/25/18: -Will hold prophylaxis due to advanced age -Nursing to encourage ambulation
[2018-09-25] MEDS: SUPER BEETS PO SCH (10:45)
--- NOTE | 2018-09-25 11:04 | Occupational Therapy Tx Note ---
Occupational Therapy Tx Note - Treatment Note Tolerated: Good Total Time Spent With Patient: 50 (ADL) Occupational Therapy Treatment Note: Detail (S: Pt up in chair, visiting with daughter. O: Pt agreeable to OT. Pt doffed sling with verbal cues. Pt doffed button down shirt with modified technique and minimal verbal cueing and using right UE as an assist. Pt donned clean button down shirt with verbal cues for modified technique and CG assist as pt stood to pull shirt around back and shoulders. Pt able to use right hand to assist with buttons. Pt doffed slipper socks Indly and donned socks with extra time and mod difficulty using modified technique and right UE as an assist. Pt donned tennis shoes using right hand to tie. Pt completed right UE pendulums and right elbow ROM x 5 reps each. Sling donned with mod assist from OT. Pt left up in chair with ice machine running on right shoulder. A: Pt improving Ind with modified dressing techniques, able to use right UE as an assist.) Occupational Therapy Problem List: Detail (1. Decreased Ind with total body dressing. 2. Decreased Ind with grooming/hygiene. 3. Decreased Ind with showering. 4. Decreased Ind with right UE exercises) Occupational Therapy Goals: 1. Pt will be Ind with modified total body dressing. 2. Pt will be safe and Ind with showering in sitting. 3. Pt will be Ind with modified grooming/hygiene tasks. 4. Pt will be Ind with right UE exercises per protocol. Prognosis: Good Occupational Therapy Plan: OT 2-4 times per week to address self cares and UE function.
[2018-09-25] MEDS: TRAMADOL HCL 50 MG TABLET PO PRN (11:15)
[2018-09-25] MEDS: B COMPLEX PO SCH (11:20)
[2018-09-25] MEDS: [UNRECOGNIZED DRUG - OTHER] PO SCH (11:20)
[2018-09-25] MEDS: MAGNESIUM PO SCH (11:21)
[2018-09-25] MEDS: MULTIVITAMIN PO SCH (11:21)
[2018-09-25] MEDS: PROBIOTICS PO SCH (11:22)
[2018-09-25] MEDS: [UNRECOGNIZED DRUG - OTHER] PO SCH (11:24)
[2018-09-25] MEDS: CHOLECALCIFEROL PO SCH (11:24)
[2018-09-25] MEDS: TURMERIC COMPLEX PO SCH (11:24)
[2018-09-25] MEDS: IBUPROFEN 600 MG TABLET PO SCH ×2 (12:57→17:54)
--- NOTE | 2018-09-25 16:51 | Physical Therapy Tx Note ---
Physical Therapy Tx Note - Treatment Note Tolerated: Good Total Time Spent With Patient: 15 Physical Therapy Tx Note: Detail (The patient was fatigued when PT arrived and stated he did not sleep at night. The patient required moderate PA of 2 with sit to stand and ambulated with walking stick(which he used per daughter's report at home) 10 feet x 1 with moderate PA of 2 and maximal verbal cues for technique. The patient then ambulated 10 feet to the bathroom with maximal verbal cues to turn and for sequencing gait pattern. The patient required CG of 1 when toileting. The patient then ambulated 7 feet back to chair with walking stick, moderate PA of 2 and maximal verbal cues. The patient was returned to chair with alarm set. Further PT was not completed due to patient's fatigue level and confusion.) Physical Therapy Problem List: Detail (1) Assistance with transfers and ambulation 2) Balance deficits 3) Numerous gait deviations which effect safe ambulation without assistance.) Physical Therapy Goals: 1) The patient will be independent to supervision with ambulation with appropriate assistive device household distances. 2) The patient will ambulate on flights of stairs with supervision for safety 3) PT will assess the patient's balance using an objective balance test 4) PT will assess the patient's bed mobility. 5) The patient will be independent with all transfers including sit to and from stand transfers. Physical Therapy Plan: PT 1-2 times a day M-F for gait training, transfer training, bed mobility, balance exercises
[2018-09-25] MEDS: ACETAMINOPHEN 500 MG TABLET PO SCH ×2 (17:20→21:35)
[2018-09-25] MEDS: MELATONIN 5 MG TABLET PO SCH (21:35)
[2018-09-26] MEDS: IBUPROFEN 600 MG TABLET PO SCH ×5 (03:04→18:19)
[2018-09-26] MEDS: ACETAMINOPHEN 500 MG TABLET PO SCH ×3 (05:36→21:47)
[2018-09-26] MEDS: [UNRECOGNIZED DRUG - OTHER] PO SCH (09:25)
[2018-09-26] MEDS: B COMPLEX PO SCH (09:25)
[2018-09-26] MEDS: MAGNESIUM PO SCH (09:26)
[2018-09-26] MEDS: PROBIOTICS PO SCH (09:26)
[2018-09-26] MEDS: MULTIVITAMIN PO SCH (09:26)
[2018-09-26] MEDS: TURMERIC COMPLEX PO SCH (09:27)
[2018-09-26] MEDS: SUPER BEETS PO SCH (09:27)
[2018-09-26] MEDS: [UNRECOGNIZED DRUG - OTHER] PO SCH (09:28)
[2018-09-26] MEDS: VESICARE 10 MG PO SCH (09:28)
[2018-09-26] MEDS: CHOLECALCIFEROL PO SCH (09:28)
--- NOTE | 2018-09-26 12:32 | Physical Therapy Tx Note ---
Physical Therapy Tx Note - Treatment Note Tolerated: Good Total Time Spent With Patient: 30 Physical Therapy Tx Note: Detail (Pt asleep in recliner upon arrival; awakened easily and was cooperative for therapy. Performed 10 reps each B of LE exercises in sitting: marching, knee extension, heel raises, toe raises; isometric knee flexion, isometric hip adduction and abduction. Removed cryopack from R shoulder and adjusted sling. Pt scooted to edge of chair independently, sit/stand with minimal assist twice, after adjusting height of any-walker. Ambulated from bedside chair to nrsg station and back to bedside chair (about 100 feet), with any-walker and firm CGA. Mostly steady with short shuffling strides, irregular advancement of any-walker. Mildy short of breath after walking, recovered quickly. Placed crypack onto R shoulder again, bedside table in front of chair, call light and water in reach. Nrsg notified.) Physical Therapy Problem List: Detail (1) Assistance with transfers and ambulation 2) Balance deficits 3) Numerous gait deviations which effect safe ambulation without assistance.) Physical Therapy Goals: 1) The patient will be independent to supervision with ambulation with appropriate assistive device household distances. 2) The patient will ambulate on flights of stairs with supervision for safety 3) PT will assess the patient's balance using an objective balance test 4) PT will assess the patient's bed mobility. 5) The patient will be independent with all transfers including sit to and from stand transfers. Prognosis: Good Physical Therapy Plan: PT 1-2 times a day M-F for gait training, transfer training, bed mobility, balance exercises
[2018-09-26] MEDS: TRAMADOL HCL 50 MG TABLET PO PRN (21:47)
[2018-09-26] MEDS: MELATONIN 5 MG TABLET PO SCH (21:47)
[2018-09-27] MEDS: IBUPROFEN 600 MG TABLET PO SCH ×4 (00:59→17:59)
[2018-09-27] MEDS: ACETAMINOPHEN 500 MG TABLET PO SCH ×3 (06:30→22:21)
[2018-09-27] MEDS: B COMPLEX PO SCH (09:27)
[2018-09-27] MEDS: MAGNESIUM PO SCH (09:27)
[2018-09-27] MEDS: SUPER BEETS PO SCH (09:27)
[2018-09-27] MEDS: PROBIOTICS PO SCH (09:27)
[2018-09-27] MEDS: [UNRECOGNIZED DRUG - OTHER] PO SCH (09:27)
[2018-09-27] MEDS: MULTIVITAMIN PO SCH (09:27)
[2018-09-27] MEDS: [UNRECOGNIZED DRUG - OTHER] PO SCH (09:28)
[2018-09-27] MEDS: TURMERIC COMPLEX PO SCH (09:28)
[2018-09-27] MEDS: VESICARE 10 MG PO SCH (09:28)
[2018-09-27] MEDS: CHOLECALCIFEROL PO SCH (09:28)
[2018-09-27] MEDS: SENNOSIDES/DOCUSATE SODIUM UD CAPSULE PO PRN (09:29)
--- NOTE | 2018-09-27 12:50 | Occupational Therapy Tx Note ---
Occupational Therapy Tx Note - Treatment Note Tolerated: Good Total Time Spent With Patient: 50 (ADL) Occupational Therapy Treatment Note: Detail (S: Pt sleeping but awoke easily. Pt reports he didn't sleep very well. O: Supine to sit Indly to right side. Pt doffed sling with min assist to unhook and t-shirt with verbal cues for modified technique. Sit to stand and amb to shower with tripod cane and CG assist. Pt doffed pants and briefs over hips in standing with CG assist and then was seated and able to doff over feet Indly. Pt completed showering in sitting and standing with CG assist while standing and min assist for sit to stand as grab bar is located on right side. Pt required assist for back and he was able to use right UE as an assist appropriately. Pt completed shaving in shower. Pt did require verbal cues to not use RUE for sit to stand. Pt dried self with assist for sit to stand and CG assist for standing while drying buttocks/silvana area. Pt donned t-shirt with min assist. Sit to stand with min assist and amb to chair with tripod cane and CG assist. Pt donned briefs and pants Indly over feet, min assist for sit to stand and min assist to pull pants/briefs over right hip. Pt donned slip on slippers Indly. Sling donned per OT as pt was fatigued. A: Pt required min assist for showering/dressing and was able to use right UE as a light assist. Pt fatigued after self cares.) Occupational Therapy Problem List: Detail (1. Decreased Ind with total body dressing. 2. Decreased Ind with grooming/hygiene. 3. Decreased Ind with showering. 4. Decreased Ind with right UE exercises) Occupational Therapy Goals: 1. Pt will be Ind with modified total body dressing. 2. Pt will be safe and Ind with showering in sitting. 3. Pt will be Ind with modified grooming/hygiene tasks. 4. Pt will be Ind with right UE exercises per protocol. Prognosis: Good Occupational Therapy Plan: OT 2-4 times per week to address self cares and UE function.
--- NOTE | 2018-09-27 14:45 | Physical Therapy Tx Note ---
Physical Therapy Tx Note - Treatment Note Tolerated: Good Total Time Spent With Patient: 35 Physical Therapy Tx Note: Detail (Pt was seated in chair when PT arrived with chair alarm and said he is doing much better today. Pt ambulated 168ft with cane and contact guard. Pt ascended and descended 3 steps x2 using railing with contact guarding using recipical gait pattern. Pt performed standing marching x10ea, and stepping over 2 objects x4, standing with UE support with narrow and wide base x30", all in parallel bars. Pt was min assist with all transfers. Pt was returned to chair with alarm and call light. Plan is to have Pt attempt a fight of stairs next treatment.) Physical Therapy Problem List: Detail (1) Assistance with transfers and ambulation 2) Balance deficits 3) Numerous gait deviations which effect safe ambulation without assistance.) Physical Therapy Goals: 1) The patient will be independent to supervision with ambulation with appropriate assistive device household distances. 2) The patient will ambulate on flights of stairs with supervision for safety 3) PT will assess the patient's balance using an objective balance test 4) PT will assess the patient's bed mobility. 5) The patient will be independent with all transfers including sit to and from stand transfers. Prognosis: Good Physical Therapy Plan: PT 1-2 times a day M-F for gait training, transfer training, bed mobility, balance exercises
[2018-09-27] MEDS: TRAMADOL HCL 50 MG TABLET PO PRN (22:20)
[2018-09-27] MEDS: MELATONIN 5 MG TABLET PO SCH (22:20)
[2018-09-28] MEDS: IBUPROFEN 600 MG TABLET PO SCH ×4 (01:09→18:25)
[2018-09-28] MEDS: ACETAMINOPHEN 500 MG TABLET PO SCH ×3 (06:21→22:02)
[2018-09-28] MEDS: [UNRECOGNIZED DRUG - OTHER] PO SCH (10:00)
[2018-09-28] MEDS: MAGNESIUM PO SCH (10:01)
[2018-09-28] MEDS: MULTIVITAMIN PO SCH (10:01)
[2018-09-28] MEDS: B COMPLEX PO SCH (10:01)
[2018-09-28] MEDS: PROBIOTICS PO SCH (10:02)
[2018-09-28] MEDS: SUPER BEETS PO SCH (10:06)
[2018-09-28] MEDS: TURMERIC COMPLEX PO SCH (10:06)
[2018-09-28] MEDS: CHOLECALCIFEROL PO SCH (10:07)
[2018-09-28] MEDS: [UNRECOGNIZED DRUG - OTHER] PO SCH (10:07)
[2018-09-28] MEDS: VESICARE 10 MG PO SCH (10:07)
[2018-09-28] MEDS: MELATONIN 5 MG TABLET PO SCH (22:03)
[2018-09-28] MEDS: TRAMADOL HCL 50 MG TABLET PO PRN (22:03)
[2018-09-29] MEDS: IBUPROFEN 600 MG TABLET PO SCH ×4 (00:51→18:58)
[2018-09-29] MEDS: ACETAMINOPHEN 500 MG TABLET PO SCH ×3 (06:23→21:52)
[2018-09-29] MEDS: [UNRECOGNIZED DRUG - OTHER] PO SCH (10:21)
[2018-09-29] MEDS: B COMPLEX PO SCH (10:21)
[2018-09-29] MEDS: MULTIVITAMIN PO SCH (10:22)
[2018-09-29] MEDS: MAGNESIUM PO SCH (10:22)
[2018-09-29] MEDS: PROBIOTICS PO SCH (10:23)
[2018-09-29] MEDS: SUPER BEETS PO SCH (10:23)
[2018-09-29] MEDS: TURMERIC COMPLEX PO SCH (10:24)
[2018-09-29] MEDS: VESICARE 10 MG PO SCH (10:24)
[2018-09-29] MEDS: [UNRECOGNIZED DRUG - OTHER] PO SCH (10:24)
[2018-09-29] MEDS: CHOLECALCIFEROL PO SCH (10:24)
[2018-09-29] MEDS: MELATONIN 5 MG TABLET PO SCH (21:52)
[2018-09-30] MEDS: IBUPROFEN 600 MG TABLET PO SCH ×4 (00:53→19:26)
[2018-09-30] MEDS: ACETAMINOPHEN 500 MG TABLET PO SCH ×3 (06:15→23:03)
--- NOTE | 2018-09-30 09:39 | Occupational Therapy Tx Note ---
Occupational Therapy Tx Note - Treatment Note Tolerated: Good Total Time Spent With Patient: 35 (ADL, ther ex) Occupational Therapy Treatment Note: Detail (S: Pt up in chair, reports he had a good weekend. O: Sit to stand and amb to sink with tripod cane and SBA. Pt completed washing face, shaving and oral hygiene in static standing with SBA. He was able to use right hand as an assist appropriately. Pt amb to chair with cane and SBA. Pt doffed slipper socks and donned socks and slip on shoes Indly with mod difficulty and using right hand as an assist with verbal cues for modified technique. Pt amb 10 feet to wheelchair and transported to rehab gym. Pt completed right UE AROM x 10 reps for elbow flexion/extension, forearm supination/pronation, wrist flexion/extension and finger flexion/extension. Pt completed codmans x 10 reps each in standing while holding parallel bars. Pt left with PT in gym. A: Improved Ind with functional mobility and self care tasks.) Occupational Therapy Problem List: Detail (1. Decreased Ind with total body dressing. 2. Decreased Ind with grooming/hygiene. 3. Decreased Ind with showering. 4. Decreased Ind with right UE exercises) Occupational Therapy Goals: 1. Pt will be Ind with modified total body dressing. 2. Pt will be safe and Ind with showering in sitting. 3. Pt will be Ind with modified grooming/hygiene tasks. 4. Pt will be Ind with right UE exercises per protocol. Prognosis: Good Occupational Therapy Plan: OT 2-4 times per week to address self cares and UE function.
--- NOTE | 2018-09-30 10:12 | Physical Therapy Tx Note ---
Physical Therapy Tx Note - Treatment Note Tolerated: Good Physical Therapy Tx Note: Detail (Pt was with OT in a wheel chair when PT arrived. Patient descended and ascended 10 steps using cane and hand rail with contact guard. Pt used recipicating gait ascending stairs. Pt was indenpendent with bed mobility with supine to sit without use of rails and indenpendent with all tranfers. Pt ambulated 40ft contact guard with cane. Pt was able to stand with feet togther x30", stride stance x30" B, and normal stance eyes closed x30" all without an assisted device. Pt was able to walk forward, backward, and side step as well as turn 360 degrees all with contact guard and with use of cane. Pt had good dynamic balance reaching for therapist hand across his body. Pt was left in chair with alarm and call light.) Physical Therapy Problem List: Detail (1) Assistance with transfers and ambulation 2) Balance deficits 3) Numerous gait deviations which effect safe ambulation without assistance.) Physical Therapy Goals: 1) The patient will be independent to supervision with ambulation with appropriate assistive device household distances. 2) The patient will ambulate on flights of stairs with supervision for safety 3) PT will assess the patient's balance using an objective balance test (Goal Met) 4) PT will assess the patient's bed mobility.(Goal Met) 5) The patient will be independent with all transfers including sit to and from stand transfers. Prognosis: Good Physical Therapy Plan: PT 1-2 times a day M-F for gait training, transfer training, bed mobility, balance exercises
[2018-09-30] MEDS: [UNRECOGNIZED DRUG - OTHER] PO SCH (10:56)
[2018-09-30] MEDS: SUPER BEETS PO SCH (10:57)
[2018-09-30] MEDS: PROBIOTICS PO SCH (10:57)
[2018-09-30] MEDS: MULTIVITAMIN PO SCH (10:57)
[2018-09-30] MEDS: MAGNESIUM PO SCH (10:57)
[2018-09-30] MEDS: B COMPLEX PO SCH (10:57)
[2018-09-30] MEDS: TURMERIC COMPLEX PO SCH (10:57)
[2018-09-30] MEDS: [UNRECOGNIZED DRUG - OTHER] PO SCH (10:58)
[2018-09-30] MEDS: CHOLECALCIFEROL PO SCH (10:58)
[2018-09-30] MEDS: VESICARE 10 MG PO SCH (10:58)
[2018-09-30] MEDS: MELATONIN 5 MG TABLET PO SCH (23:03)
[2018-10-01] MEDS: IBUPROFEN 600 MG TABLET PO SCH ×3 (00:36→06:51)
[2018-10-01] MEDS: ACETAMINOPHEN 500 MG TABLET PO SCH ×3 (06:52→22:02)
--- NOTE | 2018-10-01 08:27 | Occupational Therapy Tx Note ---
Occupational Therapy Tx Note - Treatment Note Tolerated: Good Total Time Spent With Patient: 50 (ADL) Occupational Therapy Treatment Note: Detail (S: Pt awake and resting in bed. Reports sleeping well. O: Supine to sit Indly. Pt sit to stand and amb to toilet with tripod cane and CG assist. Pt completed toileting Indly. Pt doffed briefs, socks and t-shirt Indly using modified techniques. Pt amb to shower with cane and completed showering in sitting and standing with SBA for standing. Pt able to use right UE as an assist for showering. Pt dried self Indly. Pt donned t-shirt, briefs, pants and button down shirt with min assist to pull briefs over right hip. Pt amb to chair with cane and SBA. Pt donned socks with moderate difficulty but Indly, he donned slip on shoes Indly. Sling donned per OT and pt left up in chair with breakfast and chair alarm in place. A: Pt able to use modified dressing and showering techniques Indly, he requires very minimal assist to pull briefs over right hip.) Occupational Therapy Problem List: Detail (1. Decreased Ind with total body dressing. 2. Decreased Ind with grooming/hygiene. 3. Decreased Ind with showering. 4. Decreased Ind with right UE exercises) Occupational Therapy Goals: 1. Pt will be Ind with modified total body dressing. 2. Pt will be safe and Ind with showering in sitting. 3. Pt will be Ind with modified grooming/hygiene tasks. 4. Pt will be Ind with right UE exercises per protocol. Prognosis: Good Occupational Therapy Plan: OT 2-4 times per week to address self cares and UE function.
[2018-10-01] MEDS: [UNRECOGNIZED DRUG - OTHER] PO SCH (09:15)
[2018-10-01] MEDS: CHOLECALCIFEROL PO SCH (09:18)
[2018-10-01] MEDS: [UNRECOGNIZED DRUG - OTHER] PO SCH (09:18)
[2018-10-01] MEDS: B COMPLEX PO SCH (09:20)
[2018-10-01] MEDS: MAGNESIUM PO SCH (09:22)
[2018-10-01] MEDS: MULTIVITAMIN PO SCH (09:24)
[2018-10-01] MEDS: VESICARE 10 MG PO SCH (09:25)
[2018-10-01] MEDS: SUPER BEETS PO SCH (09:25)
[2018-10-01] MEDS: TURMERIC COMPLEX PO SCH (09:28)
[2018-10-01] MEDS: PROBIOTICS PO SCH (09:28)
--- NOTE | 2018-10-01 14:28 | Physical Therapy Tx Note ---
Physical Therapy Tx Note - Treatment Note Tolerated: Good Total Time Spent With Patient: 40 Physical Therapy Tx Note: Detail (Pt was seated in a chair when PT arrived. Pt descended and ascended 10 steps with use of hand rail and cane with contact guard. Pt ambulated 630ft with cane and contact guard with cues for big steps. Pt was able to ambulate on carpet but needed cues for picking feet up. Pt was able to stand without a device to use bathroom and wash hands with contact guard. Pt was contact guard for all transfers. Pt was left in a chair with call light.) Physical Therapy Problem List: Detail (1) Assistance with transfers and ambulat ion 2) Balance deficits 3) Numerous gait deviations which effect safe ambulation without assistance.) Physical Therapy Goals: 1) The patient will be independent to supervision with ambulation with appropriate assistive device household distances. 2) The patient will ambulate on flights of stairs with supervision for safety 3) PT will assess the patient's balance using an objective balance test (Goal Met) 4) PT will assess the patient's bed mobility.(Goal Met) 5) The patient will be independent with all transfers including sit to and from stand transfers. Prognosis: Good Physical Therapy Plan: PT 1-2 times a day M-F for gait training, transfer training, bed mobility, balance exercises
[2018-10-01] MEDS: IBUPROFEN 400 MG TABLET PO PRN (16:47)
[2018-10-01] MEDS: MELATONIN 5 MG TABLET PO SCH (22:02)
[2018-10-02] MEDS: ACETAMINOPHEN 500 MG TABLET PO SCH ×3 (06:47→21:33)
--- NOTE | 2018-10-02 09:23 | Physician Progress Note ---
Subjective - Date Date of Progress Note: 10/02/18 - Admitting Diagnosis Diagnosis: multiple rehab services post right shoulder replacement - Subjective Nursing Care Plan Problem List Activity Intolerance (Swing Bed) Start: 09/20/18 17:35 Freq: Status: Active Protocol: Created 09/20/18 17:35 MMT (Rec: 09/20/18 17:35 MMT [id number]) Altered Thought Process (Fall Risk) Start: 09/20/18 17:46 Freq: Status: Active Protocol: Created 09/20/18 17:46 MMT (Rec: 09/20/18 17:46 MMT [id number]) Impaired Mobility (Fall Risk) Start: 09/20/18 17:46 Freq: Status: Active Protocol: Created 09/20/18 17:46 MMT (Rec: 09/20/18 17:46 MMT [id number]) Knowledge Deficit (Swing Bed) Start: 09/20/18 17:35 Freq: Status: Active Protocol: Created 09/20/18 17:35 MMT (Rec: 09/20/18 17:35 MMT [id number]) Pain (Swing Bed) Start: 09/20/18 17:35 Freq: Status: Active Protocol: Created 09/20/18 17:35 MMT (Rec: 09/20/18 17:35 MMT [id number]) Risk for Injury (Fall Risk) Start: 09/20/18 17:46 Freq: Status: Active Protocol: Created 09/20/18 17:46 MMT (Rec: 09/20/18 17:46 MMT [id number]) Skin Integrity, Impaired (Swing Bed) Start: 09/20/18 19:09 Freq: Status: Active Protocol: Created 09/20/18 19:09 MMT (Rec: 09/20/18 19:09 MMT [id number]) Subjective: C/o restless legs at night time. States that he wiggles himself right to the edge of the bed and has to have help getting repositioned in bed. Pain is well controlled, even with Motrin being stopped yesterday. Has f/u with orthopedic surgeon today. Family working on making arrangements in the home so that he can live on the first level. - Subjective Detail Comment: No additional complaints except as noted below Constitutional: Denies: Chills, Fever Respiratory: Denies: Cough Cardiovascular: Denies: Chest pain General - Cognitive Patterns Speech: Soft Thought Process: Intact Thought Content: Normal - Communication Select best description of speech pattern: Clear Speech Ability to express ideas and wants: Understood Understanding verbal content: Understands - Mood and Behavior Patterns Appearance: Well Groomed Mood: Normal Attitude: Cooperative Motor Activity: Calm Affect: Appropriate Hallucinations: Denies - Physical Functioning Activity Level: Up with assist x1 Turning: Self ad isaac ROM Ability: Limited/Compromised Assistive Devices: Walker Activity Level Comment: Pt is x1 assist. Bed alarm and chair alarm in use. Pt redirected and educated often in room and with the use of walker by RN, staff and PT/OT. Ambulation Ability: Needs Assist Bed Mobility: Needs Assist Transfer Ability: Needs Assist Bathing Ability: Needs Assist Personal Hygiene: Needs Assist Dressing Ability: Needs Assist Eating (Feeding) Ability: Independent Toileting Ability: Needs Assist Administer Own Medication: Needs Assist - Continence Bowel Pattern: Normal for Patient Bladder Pattern: Normal Urinary Incontinence: Functional Meds/Allergies - Allergies Allergies Allergy/AdvReac Type Severity Reaction Status Date / Time Sulfa (Sulfonamide Allergy Unknown PT UNSURE Unverified 09/03/18 15:00 Antibiotics) OF REACTION [SULFA (SULFONAMIDE ANTIBIOTICS)] - Active Medications Current Medications Acetaminophen (Tylenol 500mg Tab) 1,000 mg PO Q8HR [facility] Last Admin: 10/02/18 06:47 Dose: 1,000 mg Documented by: Ibuprofen (Motrin 400mg) 400 mg PO Q8H PRN PRN Reason: PAIN - MILD TO MODERATE (1-7) Last Admin: 10/01/18 16:47 Dose: 400 mg Documented by: Melatonin (Melatonin) 5 mg PO QHS [facility] Last Admin: 10/01/18 22:02 Dose: 5 mg Documented by: Patient Own Med: (Vesicare 10mg) 1 each PO DAILY [facility] Last Admin: 10/01/18 09:25 Dose: 1 each Documented by: Patient Own Med: Magnesium Complex 300 Mg 1 each PO DAILY [facility] Last Admin: 10/01/18 09:22 Dose: 1 each Documented by: Patient Own Med: (Probiotics 15) 1 each PO DAILY [facility] Last Admin: 10/01/18 09:28 Dose: 1 each Documented by: Patient Own Med: (Turmeric Complex) 1 each PO DAILY [facility] Last Admin: 10/01/18 09:28 Dose: 1 each Documented by: Patient Own Med: (Vitamin K2 And D3) 1 each PO DAILY [facility] Last Admin: 10/01/18 09:18 Dose: 1 each Documented by: Patient Own Med: Alpha Mineral Support 7.5 each PO DAILY [facility] Last Admin: 10/01/18 09:15 Dose: 7.5 each Documented by: Patient Own Med: Men 's One Daily Multivitamin 1 each PO DAILY CESAR Last Admin: 10/01/18 09:24 Dose: 1 each Documented by: Patient Own Med: B (Complex) 1 each PO DAILY [facility] Last Admin: 10/01/18 09:20 Dose: 1 each Documented by: Patient Own Med: (Super Beets) 1 each PO DAILY [facility] Last Admin: 10/01/18 09:25 Dose: 1 each Documented by: Senna/Docusate Sodium (Senna Plus) 2 each PO BID PRN PRN Reason: CONSTIPATION Last Admin: 09/27/18 09:29 Dose: 2 each Documented by: Tramadol HCl (Ultram) 50 mg PO Q6H PRN PRN Reason: PAIN - MOD TO SEVERE (5-10) Last Admin: 09/28/18 22:03 Dose: 50 mg Documented by: Objective - Vital Signs Vital Signs: Vital Signs - Last 24 Hrs Temp Pulse Resp BP Pulse Ox 10/02/18 07:28 98.7 F 71 16 122/76 94 L 10/01/18 22:06 98.0 F 68 16 139/77 94 L - General General Appearance: Alert, Cooperative, No acute distress Limitations: Physical limitation (right shoulder immobilizer) - Respiratory Respiratory exam: negative: Accessory muscle use - Extremities Extremities exam: Normal inspection - Psychiatric Psychiatric exam: Normal affect, Normal mood H&P Results - Labs Result Diagrams: 09/22/18 06:05 09/22/18 06:05 Discharge Potential - Discharge Needs Community Services Used Prior to Admission: None Patient Discharge Plan Description: Return Home Community Services Needed at Discharge: None Plan - Swing Bed Certification Initial Certification Due: 09/20/18 14 Day Re-Cert Due: 10/04/18 44 Day Re-Cert Due: 11/03/18 74 Day Re-Cert Due: 12/03/18 - Detailed Diagnosis and Plan (1) Status post replacement of right shoulder joint Current Visit: Yes Status: Acute Base Code: Z96.611 - PRESENCE OF RIGHT ARTIFICIAL SHOULDER JOINT Comment: 10/02/18 -reverse right total shoulder arthroplasty with Dr. Martinez on 09/19/18. Surgery was done for dx of biceps tendinitis, OA, and rotator cuff arthropathy of right shoulder. Post op instructions include: Non-weightbearuing on RUE, okay to shower -F/u with Dr. Martinez today 10/02/18 -Changed Motrin to PRN, continue Tylenol 1000mg PO TID -Continue PT/OT - Polar pack (2) Restless legs Current Visit: Yes Status: Acute Base Code: G25.81 - RESTLESS LEGS SYNDROME Comment: 10/02/18 -Trial Requip 0.5mg PO Q. HS (3) Full code status Current Visit: Yes Status: Acute Base Code: Z78.9 - OTHER SPECIFIED HEALTH STATUS Comment: 10/02/18: -Pt. is a full code
[2018-10-02] MEDS: B COMPLEX PO SCH (09:31)
[2018-10-02] MEDS: [UNRECOGNIZED DRUG - OTHER] PO SCH (09:31)
[2018-10-02] MEDS: MAGNESIUM PO SCH (09:32)
[2018-10-02] MEDS: MULTIVITAMIN PO SCH (09:33)
[2018-10-02] MEDS: PROBIOTICS PO SCH (09:34)
[2018-10-02] MEDS: SUPER BEETS PO SCH (09:35)
[2018-10-02] MEDS: TURMERIC COMPLEX PO SCH (09:36)
[2018-10-02] MEDS: VESICARE 10 MG PO SCH (09:36)
[2018-10-02] MEDS: IBUPROFEN 400 MG TABLET PO PRN (10:50)
[2018-10-02] MEDS: [UNRECOGNIZED DRUG - OTHER] PO SCH (10:52)
[2018-10-02] MEDS: CHOLECALCIFEROL PO SCH (10:52)
--- NOTE | 2018-10-02 11:53 | Occupational Therapy Tx Note ---
Occupational Therapy Tx Note - Treatment Note Tolerated: Good Total Time Spent With Patient: 25 (2 ADL) Occupational Therapy Treatment Note: Detail (S: Pt up in chair and agreeable to OT Tx, ok to see per RN Bert. O: Stand pivot transfer from recliner to WC with tripod cane and CGA d/t Fair balance. OT propelled Pt to and from therapy gym in . At therapy gym, Pt stood at parallel bar with CGA to complete Codmans to R shoulder 3 min x2 reps with visual demo and continued verbal instruction to relax R shoulder in order to maintain shoulder ROM. Pt dons/doffs Ultrasling x2 reps with MIN assist - visual demo and verbal/tactile instructions throughout to increase independence with dressing task. OT engages Pt in AROM exercises 10 reps x2 to distal R arm to maintain ROM to elbow (flex/ext.), wrist (flex/ext, pro/sup, rad/ulnar deviate), and hand (full flex and extend all fingers). Verbal instruction to maintain relaxed R shoulder. A: Pt tolerates Tx well, reports exercises feel good. Continues to require reminders to maintain NWB and no ROM to R shoulder. Pt has doctor apt. follow up later this date.) Occupational Therapy Problem List: Detail (1. Decreased Ind with total body dressing. 2. Decreased Ind with grooming/hygiene. 3. Decreased Ind with showering. 4. Decreased Ind with right UE exercises) Occupational Therapy Goals: 1. Pt will be Ind with modified total body dressing. 2. Pt will be safe and Ind with showering in sitting. 3. Pt will be Ind with modified grooming/hygiene tasks. 4. Pt will be Ind with right UE exercises per protocol. Prognosis: Good Occupational Therapy Plan: OT 2-4 times per week to address self cares and UE function.
[2018-10-02] MEDS: MELATONIN 5 MG TABLET PO SCH (21:33)
[2018-10-02] MEDS: ROPINIROLE HCL 1 MG TABLET PO SCH (21:33)
[2018-10-03] MEDS: ACETAMINOPHEN 500 MG TABLET PO SCH ×3 (06:29→21:03)
[2018-10-03] MEDS: ASPIRIN 81 MG TABEC PO SCH (09:24)
[2018-10-03] MEDS: MULTIVITAMIN PO SCH (09:24)
[2018-10-03] MEDS: B COMPLEX PO SCH (09:24)
[2018-10-03] MEDS: MAGNESIUM PO SCH (09:24)
[2018-10-03] MEDS: [UNRECOGNIZED DRUG - OTHER] PO SCH (09:24)
[2018-10-03] MEDS: [UNRECOGNIZED DRUG - OTHER] PO SCH (09:25)
[2018-10-03] MEDS: VESICARE 10 MG PO SCH (09:25)
[2018-10-03] MEDS: TURMERIC COMPLEX PO SCH (09:25)
[2018-10-03] MEDS: PROBIOTICS PO SCH (09:25)
[2018-10-03] MEDS: SUPER BEETS PO SCH (09:25)
[2018-10-03] MEDS: CHOLECALCIFEROL PO SCH (09:25)
--- NOTE | 2018-10-03 10:31 | Physical Therapy Tx Note ---
Physical Therapy Tx Note - Treatment Note Tolerated: Good Total Time Spent With Patient: 30 Physical Therapy Tx Note: Detail (Patient states feeling pretty good this morning. Patient transferred sit to and from stand CGA x1. Patient ambulated 298 feet with hurrycane CGA x1. Patient transferred sit to and from stand CGA x1. Patient performed the following balance exercises x30 seconds each: feet together, feet together looking up and down, feet together looking side to side, feet together with eyes closed, feet together with pertubations, and stride stance. Patient performed sit to and from stand exercise x5 reps. Patient performed the following seated exercises x10 reps each: heel raises, toe raises, marching, and LAQ. Patient tolerated treatment well. Patient required seated rest breaks with standing balance exercises due to fatigue. Patient required verbal cueing with ambulation to remember to take larger steps. Patient reports feeling tired after treatment. Patient was left seated in chair with call light within reach.) Physical Therapy Problem List: Detail (1) Assistance with transfers and ambulation 2) Balance deficits 3) Numerous gait deviations which effect safe ambulation without assistance.) Physical Therapy Goals: 1) The patient will be independent to supervision with ambulation with appropriate assistive device household distances. 2) The patient will ambulate on flights of stairs with supervision for safety 3) PT will assess the patient's balance using an objective balance test (Goal Met) 4) PT will assess the patient's bed mobility.(Goal Met) 5) The patient will be inde pendent with all transfers including sit to and from stand transfers. Prognosis: Good Physical Therapy Plan: PT 1-2 times a day M-F for gait training, transfer training, bed mobility, balance exercises
--- NOTE | 2018-10-03 14:29 | Physical Therapy Tx Note ---
Physical Therapy Tx Note - Treatment Note Tolerated: Good Total Time Spent With Patient: 20 Physical Therapy Tx Note: Detail (Patient was seated in chair upon [facility]ER arrival. Patient transferred sit to and from stand CGA x1. Patient ambulated 26 feet with hurrycane CGA x1. Patient performed the following exercises seated in chair: codman's pendulum A/P, lat, circles CW and CCW, elbow flexion/extension ROM active and passive, wrist flexion, wrist extension, wrist ulnar deviation, wrist radial deviation, supination, pronation, closing fingers, opening fingers, making a fist, and pinching. Patient reports right arm tired and sore after treatment. Patient was left seated in chair with call light within reach.) Physical Therapy Problem List: Detail (1) Assistance with transfers and ambulation 2) Balance deficits 3) Numerous gait deviations which effect safe ambulation without assistance.) Physical Therapy Goals: 1) The patient will be independent to supervision with ambulation with appropriate assistive device household distances. 2) The patient will ambulate on flights of stairs with supervision for safety 3) PT will assess the patient's balance using an objective balance test (Goal Met) 4) PT will assess the patient's bed mobility.(Goal Met) 5) The patient will be independent with all transfers including sit to and from stand transfers. Prognosis: Good Physical Therapy Plan: PT 1-2 times a day M-F for gait training, transfer training, bed mobility, balance exercises
[2018-10-03] MEDS: ROPINIROLE HCL 1 MG TABLET PO SCH (21:03)
[2018-10-03] MEDS: MELATONIN 5 MG TABLET PO SCH (21:03)
[2018-10-04] MEDS: ACETAMINOPHEN 500 MG TABLET PO SCH ×3 (06:09→21:02)
--- NOTE | 2018-10-04 10:21 | Physical Therapy Tx Note ---
Physical Therapy Tx Note - Treatment Note Tolerated: Good Total Time Spent With Patient: 30 Physical Therapy Tx Note: Detail (The patient reports he feels good today. The patient was up in chair when PT arrived. The patient's balance was retested using the Tinetti Assessment Tool. The patient scored 17/18 which is in the High Risk for falling category but significantly better then initially ie: 01/11. The patient was independent with sit to and from stand transfers from higher surface with one attempt. The patient required minimal PA from lower surface. The patient ambulated with walking stick/pole a distance of 200 feet x 1 and 150 feet x1 with supervision for safety. The patient ambulated on tile, carpet and sidewalk. The patient was returned to room via wheelchair. The patient completed R UE ecercises including codman's elbow and wrist AROM all x 10-15 reps. The patient was left up in chair with chair alarm on and call light within reach. The patient declined to practice stairs. The patient has made signigicant progress with balance.) Physical Therapy Problem List: Detail (1) Assistance with transfers and ambulation 2) Balance deficits 3) Numerous gait deviations which effect safe ambulation without assistance.) Physical Therapy Goals: 1) The patient will be independent to supervision with ambulation with appropriate assistive device household distances.(Goal Met) 2) The patient will ambulate on flights of stairs with supervision for safety(Goal Met) 3) PT will assess the patient's balance using an objective balance test (Goal Met) 4) PT will assess the patient's bed mobility.(Goal Met) 5) The patient will be independent with all transfers including sit to and from stand transfers. Physical Therapy Plan: PT 1-2 times a day M-F for gait training, transfer training, bed mobility, balance exercises
[2018-10-04] MEDS: ASPIRIN 81 MG TABEC PO SCH (11:30)
[2018-10-04] MEDS: [UNRECOGNIZED DRUG - OTHER] PO SCH (11:35)
[2018-10-04] MEDS: B COMPLEX PO SCH (11:35)
[2018-10-04] MEDS: MAGNESIUM PO SCH (11:36)
[2018-10-04] MEDS: MULTIVITAMIN PO SCH (11:36)
[2018-10-04] MEDS: TURMERIC COMPLEX PO SCH (11:37)
[2018-10-04] MEDS: PROBIOTICS PO SCH (11:37)
[2018-10-04] MEDS: SUPER BEETS PO SCH (11:37)
[2018-10-04] MEDS: VESICARE 10 MG PO SCH (11:38)
[2018-10-04] MEDS: CHOLECALCIFEROL PO SCH (11:39)
[2018-10-04] MEDS: [UNRECOGNIZED DRUG - OTHER] PO SCH (11:39)
--- NOTE | 2018-10-04 13:53 | Occupational Therapy Tx Note ---
Occupational Therapy Tx Note - Treatment Note Tolerated: Good Total Time Spent With Patient: 40 (ther ex) Occupational Therapy Treatment Note: Detail (S: Pt up in chair, ready for OT. O: Sit to stand and amb to bathroom with 3 point cane and SBA. Pt completed toileting and washed hands Indly. Pt amb 10 feet to wheelchair with SBA and was transported to rehab gym via wheelchair. Pt completed right UE exercises per physician orders including pendulums in standing (side to side, counter clock christensen and clock christensen circles) x 10 each, self ROM for shoulder flexion x 10 reps in sitting, AAROM with cane for shoulder abduction in sitting x 10 reps, AAROM for shoulder ER with cane in sitting x 10 reps, elbow flexion and extension x 10 reps in standing, forearm supination/pronation x 10 reps in sitting, wrist flexion and extension in sitting x 10 reps. Reviewed additional exercises for HEP, pt provided with written copy and will require ongoing teaching. Pt transported back to room via wheelchair. Sit to stand with min assist and amb several steps to recliner with CG assist and cane. A: Pt reports shoulder stiffness and achiness with motion.) Occupational Therapy Problem List: Detail (1. Decreased Ind with total body dressing. 2. Decreased Ind with grooming/hygiene. 3. Decreased Ind with showering. 4. Decreased Ind with right UE exercises) Occupational Therapy Goals: 1. Pt will be Ind with modified total body dressing. 2. Pt will be safe and Ind with showering in sitting. 3. Pt will be Ind with modified grooming/hygiene tasks. 4. Pt will be Ind with right UE exercises per protocol. Prognosis: Good Occupational Therapy Plan: OT 2-4 times per week to address self cares and UE function.
[2018-10-04] MEDS: MELATONIN 5 MG TABLET PO SCH (21:02)
[2018-10-04] MEDS: ROPINIROLE HCL 1 MG TABLET PO SCH (21:02)
[2018-10-05] MEDS: ACETAMINOPHEN 500 MG TABLET PO SCH ×3 (07:06→21:08)
[2018-10-05] MEDS: ASPIRIN 81 MG TABEC PO SCH (09:25)
[2018-10-05] MEDS: [UNRECOGNIZED DRUG - OTHER] PO SCH (09:28)
[2018-10-05] MEDS: B COMPLEX PO SCH (09:28)
[2018-10-05] MEDS: MAGNESIUM PO SCH (09:28)
[2018-10-05] MEDS: MULTIVITAMIN PO SCH (09:29)
[2018-10-05] MEDS: CHOLECALCIFEROL PO SCH (09:29)
[2018-10-05] MEDS: PROBIOTICS PO SCH (09:29)
[2018-10-05] MEDS: [UNRECOGNIZED DRUG - OTHER] PO SCH (09:29)
[2018-10-05] MEDS: SUPER BEETS PO SCH (09:29)
[2018-10-05] MEDS: TURMERIC COMPLEX PO SCH (09:29)
[2018-10-05] MEDS: VESICARE 10 MG PO SCH (09:29)
[2018-10-05] MEDS ORDERED: MAGNESIUM HYDROXIDE 30 ML UDC PO ONE (12:12)
[2018-10-05] MEDS: MELATONIN 5 MG TABLET PO SCH (21:09)
[2018-10-05] MEDS: ROPINIROLE HCL 1 MG TABLET PO SCH (21:10)
[2018-10-06] MEDS: ACETAMINOPHEN 500 MG TABLET PO SCH ×3 (06:29→21:21)
[2018-10-06] MEDS: ASPIRIN 81 MG TABEC PO SCH (09:29)
[2018-10-06] MEDS: B COMPLEX PO SCH (09:31)
[2018-10-06] MEDS: MAGNESIUM PO SCH (09:31)
[2018-10-06] MEDS: [UNRECOGNIZED DRUG - OTHER] PO SCH (09:31)
[2018-10-06] MEDS: MULTIVITAMIN PO SCH (09:32)
[2018-10-06] MEDS: PROBIOTICS PO SCH (09:32)
[2018-10-06] MEDS: TURMERIC COMPLEX PO SCH (09:33)
[2018-10-06] MEDS: SUPER BEETS PO SCH (09:33)
[2018-10-06] MEDS: VESICARE 10 MG PO SCH (09:34)
[2018-10-06] MEDS: [UNRECOGNIZED DRUG - OTHER] PO SCH (09:34)
[2018-10-06] MEDS: CHOLECALCIFEROL PO SCH (09:34)
[2018-10-06] MEDS: MELATONIN 5 MG TABLET PO SCH (21:22)
[2018-10-06] MEDS: ROPINIROLE HCL 1 MG TABLET PO SCH (21:22)
[2018-10-07] MEDS: ACETAMINOPHEN 500 MG TABLET PO SCH (05:00)
--- NOTE | 2018-10-07 09:01 | Discharge Summary ---
Providers Discharge Summary Date: 10/07/18 Date of admission: 09/20/18 17:09 Attending physician: TOBI ANAYA Primary care physician: TOBI ANAYA Physical Exam - Vital Signs Vital Signs: Vital Signs - Last 24 Hrs Temp Pulse Resp BP Pulse Ox 10/07/18 07:40 97.9 F 65 15 135/81 92 L 10/06/18 20:00 97.7 F 71 16 127/72 91 L - General General Appearance: Alert, Oriented x3, Cooperative, No acute distress Limitations: Physical limitation (right shoulder immobilizer) - Head Head exam: Normal inspection - Eye Eye exam: PERRL, Other (bilat ectropion) Pupils: Normal accommodation - ENT ENT exam: Normal exam, Mucous membranes moist, Normal external ear exam, Normal orophraynx, TM's normal bilaterally Ear exam: Normal external inspection. negative: External canal tenderness Nasal Exam: Normal inspection. negative: Discharge, Sinus tenderness Mouth exam: Normal external inspection, Tongue normal Teeth exam: Normal inspection. negative: Dental caries Throat exam: Normal inspection. negative: Tonsillar erythema, Tonsillar exudate - Neck Neck exam: Normal inspection, Full ROM. negative: Tenderness - Respiratory Respiratory exam: negative: Accessory muscle use - Cardiovascular Cardiovascular Exam: Regular rate, Normal heart sounds, Irregular rhythm Peripheral Pulses: 2+: Radial (R), Radial (L) - GI/Abdominal GI/Abdominal exam: Soft, Normal bowel sounds. negative: Tenderness - exam: Deferred - Extremities Extremities exam: Normal inspection - Back Back exam: Reports: Normal inspection. Denies: Muscle spasm, Rash noted, Tenderness - Neurological Neurological exam: Alert, Oriented X3, Reflexes normal - Psychiatric Psychiatric exam: Normal affect, Normal mood - Skin Skin exam: Dry, Intact, Normal color, Warm - Other Other Exam Information: Monofilament testing to bilateral feet. 10/10 on bilateral feet. Hospitalization - Hospitalization Admission Diagnosis: multiple rehab services post right shoulder replacement - Problem List (1) Status post replacement of right shoulder joint Current Visit: Yes Status: Acute Base Code: Z96.611 - PRESENCE OF RIGHT ARTIFICIAL SHOULDER JOINT Comment: 10/07/18 -reverse right total shoulder arthroplasty with Dr. Martinez on 09/19/18. Surgery was done for dx of biceps tendinitis, OA, and rotator cuff arthropathy of right shoulder. Post op instructions include: Non-weightbearuing on RUE, okay to shower -Medically stable for D/C from Swing Bed program -D/C home with daughter -Continue Outpatient PT/OT -Continue Tylenol 1000mg PO TID PRN (2) Restless legs Current Visit: Yes Status: Acute Base Code: G25.81 - RESTLESS LEGS SYNDROME Comment: 10/07/18 -Discontinue Requip d/t feelings of worsening N/T in BLE -Discussed trialing a different medication for RLS, pt declined at this time -Monofilament testing to Bilateral Feet 10/10. (3) Stage II pressure ulcer of sacral region Current Visit: Yes Status: Acute Base Code: L89.152 - PRESSURE ULCER OF SACRAL REGION, STAGE 2 Comment: 10/07/18 -Hx of open area to sacrum -Continue Aquacel Pro Sacral Foam 8" x 7" change q. 3 days and as needed if it becomes soiled. (4) Full code status Current Visit: Yes Status: Acute Base Code: Z78.9 - OTHER SPECIFIED HEALTH STATUS Comment: 10/07/18: -Pt. is a full code - Hospitalization Course Disposition: Home, Self-Care Hospital Course: Mr. Roger is an 88 year old male who is admitted in the swing bed program for weakness secondary to reverse right total shoulder arthroplasty with Dr. Martinez on 09/19/18. Surgery was done for dx of biceps tendinitis, OA, and rotator cuff arthropathy of right shoulder. His hx includes left eye blindness, and urinary frequency/incontinence. PCP: Dr. Anaya Underwent PT/OT in the [facility] Swing Bed program after reverse right total shoulder arthroplasty with Dr. Martinez on 09/19/18. During beginning of stay, did have difficulties with hallucinating while taking [place] for pain. [place] was d/c'd. Scheduled Tylenol and Motrin were effective for pain management and hallucinations stopped. Requip for Restless legs was also trialed and has been discontinued d/t increased feelings of N/T in BLE since starting the medications. Declines any further medication interventions for RLS. Nursing staff also reported a non-blancable Stage II pressure ulcer to sacral area. Pt reported that this "rash" has been present for "years". Upon review of family practice visit notes, the pt was given a prescription for Magic Butt Cream at his Annual Wellness Visit on 12/12/18 which indicates that this open area is not new. Nursing applied an Aquacel Pro Sacral Foam 8" x 7" to area in addition to a seat cushion which pt reports is helping to decrease discomfort in the area. Abnormal Labs: Abnormal Lab Results 09/22/18 09/22/18 Range/Units 06:05 06:05 MCV 101.5 H (81-97) fl MCH 33.6 H (27-33) pg Plt Count 123 L (130-400) K/uL MPV 11.1 H (7.4-10.4) fl Lymphocytes % 9.1 L (16-45) % Monocytes % 14.7 H (0-9) % Random Glucose 114 H (74-109) mg/dL Total Protein 6.4 L (6.6-8.7) g/dL Albumin 3.8 L (4.0-5.0) g/dL Discharge Medications - Discharge Medications Home Medications: Ambulatory Orders Acetaminophen [Tylenol 500Mg Tab] 1,000 mg PO Q8HR tablet 10/07/18 [Last Taken Unknown] Aspirin Enteric-Coated [Ecotrin (EC)] 81 mg PO DAILY tabec 10/07/18 [Last Taken Unknown] Melatonin 5 mg PO QHS tablet 10/07/18 [Last Taken Unknown] Sennosides/Docusate Sodium [Senna Plus] 2 each PO BID PRN capsule 10/07/18 [Last Taken Unknown] Discharge Plan - Discharge Instructions Activity at Discharge: Increase Activity as Tolerated Diet at Discharge: Advance to Usual Diet Wound Primary Dressing Type: Aqualcel ProFoam Dressing Change: Other (every 3 days and as needed to sacral area) Instructions: Restless Legs Syndrome (GEN), Joint Replacement Surgery (DC) Additional Instructions: Physical therapy evaluation at [facility] on SundayOctober 08 at 9:30AM with Elida. Please arrive at 9:15 and enter through [address]. Follow up appointment with Silvio Worthington at [facility] Family [facility] on October 21 at 10:20AM. The restless legs medication (Requip) has been stopped. There are different medications available for restless legs should you decide to trial another. Apply Aquacel ProFoam Sacral 8" x 7" dressing to sacral area. Change every 3 days and as needed if it gets soiled. Resume home meds Tylenol 1000mg (2-extra strength) every 8 hours as needed for pain. Activity as tolerated Diet as tolerated. If signs of infection or getting worse in any way, return to the ED or follow up with your doctor. Follow up with surgeon as directed. Quality Measures - Quality Measures Quality Measures: Advance Directives, Documentation of Current Medications in Medical Record, Elder Maltreatment Screen and Follow-Up Plan, Screening for High Blood Pressure and F/U Documented - Current Medications Quality Measure: Measure #130: Documentation of Current Medications Documentation of Current Medications: <Current Medications Documented/Reviewed> [G8427] - Blood Pressure Screening Quality Measure: Screening for High Blood Pressure and Follow-Up Documented Does Patient Have Any of the Following: No Blood Pressure Classification: Pre-Hypertensive BP Reading Systolic Measurement: 122 Diastolic Measurement: 83 Screening for High Blood Pressure: < Pre-Hypertensive BP, F/U Documented > [G8950] Pre-Hypertensive Follow-up Interventions: Referral to alternative/primary care provider. - Advance Directives Quality Measure: Measure #47: Care Plan Advance Directives Established: No Advance Directives Information Provided To Patient: No Advance Directives on File: No Living Will: Yes Power of Reel System Operator: Yes Advance Care Planning: <Care Plan/Decision Maker Documented; Discussed & Documented> [1123F] - Elder Abuse Suspicion Index Screening: Elder Abuse Suspicion Index Screening Rely on people for bathing, dressing, shopping, banking, etc: Yes Prevented from getting food, clothes, medication, etc: No Made to feel shamed or threatened by someone: No Forced to sign papers or use money against will: No Feel afraid, touched in ways not wanted or hurt physically: No Poor eye contact, withdrawn, malnourished, cuts or bruises: No Screening Result: Negative result EASI Reference Information: Braden TRUJILLO, Mari C, Cedric D, [place] Ospina.Development and validation of a tool to assist physicians identification of elder abuse: The Elder Abuse Suspicion Index (EASI ). Journal of Elder Abuse and Neglect, 2008; 20 (3): 276-300. - Elder Maltreatment Screen Quality Measures: Elder Maltreatment Screen and Follow-Up Plan Elder Maltreatment Screen: <Negative, No Follow-Up Plan Required> [G8734]
[2018-10-07] MEDS: ASPIRIN 81 MG TABEC PO SCH (09:12)
[2018-10-07] MEDS: [UNRECOGNIZED DRUG - OTHER] PO SCH (09:14)
[2018-10-07] MEDS: B COMPLEX PO SCH (09:14)
[2018-10-07] MEDS: MAGNESIUM PO SCH (09:14)
[2018-10-07] MEDS: PROBIOTICS PO SCH (09:15)
[2018-10-07] MEDS: MULTIVITAMIN PO SCH (09:15)
[2018-10-07] MEDS: SUPER BEETS PO SCH (09:15)
[2018-10-07] MEDS: TURMERIC COMPLEX PO SCH (09:15)
[2018-10-07] MEDS: [UNRECOGNIZED DRUG - OTHER] PO SCH (09:16)
[2018-10-07] MEDS: VESICARE 10 MG PO SCH (09:16)
[2018-10-07] MEDS: CHOLECALCIFEROL PO SCH (09:16)
--- NOTE | 2018-10-07 11:46 | Rehab Discharge Summary ---
Patient Information - Patient Information Diagnosis: deconditioning s/p R reverse total shouler Ordered Treatment: PT Evaluate and Treat Surgery: Yes (Reverse Total shoulder) Date of Surgery: 09/19/18 Past Medical/Surgical Hx: PAST MEDICAL/SURGICAL HISTORY Past Surgical History apendix gallbladder heart bypass X2 PMH - Respiratory Hx Respiratory Disorders Yes Hx Chronic Obstructive Yes Pulmonary Disease (COPD) PMH - Cardiovascular Hx Cardiovascular Disorders Yes Hx Abnormal EKG Yes Hx Cardiac Catheterization Yes Hx Heart Attack Yes Hx Irregular Heartbeat Yes PMH - Neuro Hx Neurological Disorders No PMH - GI Hx Gastrointestinal Disorders No PMH - Hx Genitourinary Disorders Yes Hx Bladder Problem Yes: prostate surgery Hx Prostate Problems Yes Comment: No control after surgery PMH - Endocrine Hx Endocrine Disorders No Hx Diabetes No Hx Thyroid Disease No PMH - Musculoskeletal Hx Musculoskeletal Disorders Yes Hx Arthritis Yes: bilateral shoulders PMH - Psych Hx Psychiatric Problems No PMH - Hematology/Oncology Hx Hematology/Oncology No Disorders Premorbid Status: Detail (Prior to surgery, the patient was independent with all ADL's and per his report was ambulatory without device. The patient's daughter and son in law completed all roll slicing machine tender.) Social History: Detail (The patient lives in a 3 story house with his daughter and son-in-law with his bedroom on the third floor and bathrooms on the first and third floor. Flights of 7 steps with 2 railings were present between the floors. Three steps are present at the home enterance from the porch with a handrail on the R side ascending the stairs. The bathroom the patient primarily uses is on the first floor and is equipped with a walk in shower with a seat (patient stands for showering) and an elevated toilet. No grab bars are present. The patient has a 4 wheeled walker, SBQC and a walking stick.) Precautions: [place], Fall, Other (NWB R UE, Reverse TSR precautions.) Subjective Information - Subjective Information Per Patient (The patient had occasional complaints of R shoulder pain. The patient did not rate his pain are using 0-10 pain scale.) Objective Data - Mental Status Patient Orientation: Oriented x3 - ROM Within normal limits (The patient's LE AROM is WNL except for -5 degrees L knee extension (lacking 5 degrees to neutral). Refer to OT not for UE AROM.) - Strength/Tone Within normal limits (The patient's LE AROM is generally 4+ to 5/5. Refer to OT notes for UE strength.) - Bed Mobility Independent (The patient is independent with supine to and from sit transfer and scooting up in bed.) - Transfers Independent (The patient is independent with sit to and from stand transfer from a high surface and occasional minimal PA from lower surface.) - Balance Balance Sitting: Good Balance Standing: Fair (The patient is able to stand with use of assistive device for support and without device with wide base of support. The patient's balance using the Tinetti Assessment Tool scored 17/28 initially the patient scored 9/28. The patient remains in the high risk for falling category.) - Gait Detail (The patient ambulated community distances (300 plus feet) with walking stick or wide base single point cane with supervision for safety. The patient ambulated on a flight of stairs with use of cane or railing with supervision for safety.) Therapy Assessment - Therapy Assessment Detail (The patient exhibited improved balance and required less assistance with transfers then initially. The patient is discharged from Swing Bed to Home and is to receive outpatient PT for his R shoulder.) Patient Education - Patient Education Teaching Topic: Exercise/Activity (The patient completed R reverse THS exercises with verbal cues.) Response: Return Demonstration Teaching Method: Demonstration, Handout Teaching Recipient: Patient Barriers To Learning: Age Related Problem List - Problem List Physical Therapy Problem List: Detail (1) Assistance with transfers and ambulation 2) Balance deficits 3) Numerous gait deviations which effect safe ambulation without assistance.) Occupational Therapy Problem List: Detail (1. Decreased Ind with total body dressing. 2. Decreased Ind with grooming/hygiene. 3. Decreased Ind with showering. 4. Decreased Ind with right UE exercises) Goals - Goals Physical Therapy Goals: 1) The patient will be independent to supervision with ambulation with appropriate assistive device household distances.(Goal Met) 2) The patient will ambulate on flights of stairs with supervision for safety(Goal Met) 3) PT will assess the patient's balance using an objective balance test (Goal Met) 4) PT will assess the patient's bed mobility.(Goal Met) 5) The patient will be independent with all transfers including sit to and from stand transfers.( The patient required occasional minimal assist with sit to stand from a lower surface). Occupational Therapy Goals: 1. Pt will be Ind with modified total body dressing. 2. Pt will be safe and Ind with showering in sitting. 3. Pt will be Ind with modified grooming/hygiene tasks. 4. Pt will be Ind with right UE exercises per protocol. Plan - Plan Physical Therapy Plan: The patient is discharged to home and is to recieve outpatient PT for his R shoulder. Occupational Therapy Plan: OT 2-4 times per week to address self cares and UE function.
--- NOTE | 2018-10-07 15:29 | Rehab Discharge Summary ---
Patient Information - Patient Information Diagnosis: deconditioning s/p R reverse total shouler Ordered Treatment: OT Evaluate and Treat Surgery: Yes (Reverse Total shoulder) Date of Surgery: 09/19/18 Past Medical/Surgical Hx: PAST MEDICAL/SURGICAL HISTORY Past Surgical History apendix gallbladder heart bypass X2 PMH - Respiratory Hx Respiratory Disorders Yes Hx Chronic Obstructive Yes Pulmonary Disease (COPD) PMH - Cardiovascular Hx Cardiovascular Disorders Yes Hx Abnormal EKG Yes Hx Cardiac Catheterization Yes Hx Heart Attack Yes Hx Irregular Heartbeat Yes PMH - Neuro Hx Neurological Disorders No PMH - GI Hx Gastrointestinal Disorders No PMH - Hx Genitourinary Disorders Yes Hx Bladder Problem Yes: prostate surgery Hx Prostate Problems Yes Comment: No control after surgery PMH - Endocrine Hx Endocrine Disorders No Hx Diabetes No Hx Thyroid Disease No PMH - Musculoskeletal Hx Musculoskeletal Disorders Yes Hx Arthritis Yes: bilateral shoulders PMH - Psych Hx Psychiatric Problems No PMH - Hematology/Oncology Hx Hematology/Oncology No Disorders Premorbid Status: Detail (Prior to surgery, the patient was independent with all ADL's and per his report was ambulatory without device. The patient's daughter and son in law completed all technical sales consultant.) Social History: Detail (The patient lives in a 3 story house with his daughter and son-in-law with his bedroom on the third floor and bathrooms on the first and third floor. Flights of 7 steps with 2 railings were present between the floors. Three steps are present at the home entrance from the porch with a handrail on the R side ascending the stairs. The bathroom the patient primarily uses is on the first floor and is equipped with a walk in shower with a seat (patient stands for showering) and an elevated toilet. No grab bars are present. 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.) - Coordination Appears within normal limits for therapeutic activities - Bed Mobility Independent (Ind with supine to sit) - Transfers Independent (Ind with sit to stand from EOB, chair and toilet heights.) - Balance Balance Sitting: Good Balance Standing: Fair - Sensation Intact - Gait Detail (Pt ambulating in room with tripod cane and SBA.) - ADL's/IADL's Detail (Pt is Ind with modified techniques for total body dressing as well as showering in sitting and standing.) Therapy Assessment - Therapy Assessment Detail (Pt is Ind with showering and dressing tasks using modified techniques and right UE as an assist. He is able to demonstrate Ind with right UE exercises per protocol from surgeon and continues to increase functional use of right UE for light self cares.) Problem List - Problem List Physical Therapy Problem List: Detail (1) Assistance with transfers and ambulation 2) Balance deficits 3) Numerous gait deviations which effect safe ambulation without assistance.) Occupational Therapy Problem List: Detail (1. Decreased Ind with total body dressing. 2. Decreased Ind with grooming/hygiene. 3. Decreased Ind with showering. 4. Decreased Ind with right UE exercises) Goals - Goals Physical Therapy Goals: 1) The patient will be independent to supervision with ambulation with appropriate assistive device household distances.(Goal Met) 2) The patient will ambulate on flights of stairs with supervision for safety(Goal Met) 3) PT will assess the patient's balance using an objective balance test (Goal Met) 4) PT will assess the patient's bed mobility.(Goal Met) 5) The patient will be independent with all transfers including sit to and from stand transfers.( The patient required occasional minimal assist with sit to stand from a lower surface). Occupational Therapy Goals: Goals Met: 1. Pt will be Ind with modified total body dressing. 2. Pt will be safe and Ind with showering in sitting. 3. Pt will be Ind with modified grooming/hygiene tasks. 4. Pt will be Ind with right UE exercises per protocol. Prognosis - Prognosis Good Plan - Plan Physical Therapy Plan: The patient is discharged to home and is to recieve outpatient PT for his R shoulder. Occupational Therapy Plan: Pt is discharged home and will continue with OP PT.
== END 2018-10-07 13:20 | disposition home or self-care (01) | DRG 948 ==
LOC: MEDSURG 17:09
PROVIDERS: ADMIT Internal Medicine; ATTEND Internal Medicine
DX: R53.81 Other malaise (principal); Z96.611 Presence of right artificial shoulder joint; L89.152 Pressure ulcer of sacral region, stage 2; G25.81 Restless legs syndrome; G47.01 Insomnia due to medical condition; H54.62 Unqualified visual loss, left eye, normal vision right eye; R32 Unspecified urinary incontinence; Z87.891 Personal history of nicotine dependence; J44.9 Chronic obstructive pulmonary disease, unspecified; Z98.61 Coronary angioplasty status; I25.2 Old myocardial infarction
CPT/HCPCS: 80053; 81003; 85025; 97110; 97530; 99306; 99309; 99310; 99316

== ENCOUNTER 2019-01-18 21:09 | Observation (INO) | payer MEDICARE ==
--- NOTE | 2019-01-18 21:37 | Emergency Department Record ---
History of Present Illness - General Chief complaint: Flank Pain Stated complaint: ABD PAIN/GUSTAVO/SHAKES Time Seen by Provider: 01/18/19 21:31 Source: Patient, Family Mode of Arrival: Wheelchair Limitations: No limitations - History of Present Illness Initial comments: pt came in for significant ap in the lower abdomen that is intermittent. no n/v/c/d. he has never had pain like this. it started tonight Complaint: Other Onset/Timin -: Hour(s) Location: Abdomen Severity: Severe Severity scale (1-10): >10 Quality: Sharp, Stabbing Consistency: Constant Improves with: None Worsens with: None Reports: Denies other symptoms - Related Data Sexually active: No Previous Rx's Medication Instructions Recorded Acetaminophen [Tylenol 500Mg Tab] 1,000 mg PO Q8HR tablet 10/07/18 Aspirin Enteric-Coated [Ecotrin 81 mg PO DAILY tabec 10/07/18 (EC)] Melatonin 5 mg PO QHS tablet 10/07/18 Sennosides/Docusate Sodium [Senna 2 each PO BID PRN capsule 10/07/18 Plus] Allergies Allergy/AdvReac Type Severity Reaction Status Date / Time Sulfa (Sulfonamide Allergy Unknown PT UNSURE Verified 01/18/19 21:30 Antibiotics) OF REACTION [SULFA (SULFONAMIDE ANTIBIOTICS)] acetaminophen [From [place]] Allergy ALTERED Verified 01/18/19 21:30 MENTAL STATUS hydrocodone bitartrate Allergy BEHAVIORAL Verified 01/18/19 21:29 [From [place]] CHANGES Travel Screening - Travel/Exposure Within Last 30 Days Have you traveled within the last 30 days?: No - Travel/Exposure Within Last Year Have you traveled outside the [place] in the last year?: No - Additonal Travel Details Have you been exposed to anyone with a communicable illness?: No - Travel Symptoms Symptom Screening: None Review of Systems Reviewed: No additional complaints except as noted below Constitutional: Reports: As per HPI. Denies: Chills, Fever, Malaise, Night sweats, Weakness, Weight change Eyes: Reports: As per HPI. Denies: Eye discharge, Eye pain, Photophobia, Vision change ENT: Reports: As per HPI. Denies: Congestion, Dental pain, Ear pain, Epistaxis, Hearing loss, Throat pain Respiratory: Reports: As per HPI. Denies: Cough, Dyspnea, Hemoptysis, Stridor, Wheezes Cardiovascular: Reports: As per HPI. Denies: Arrhythmia, Chest pain, Dyspnea on exertion, Edema, Murmurs, Orthopnea, Palpitations, Paroxysmal nocturnal dyspnea, Rheumatic Fever, Syncope Endocrine: Reports: As per HPI. Denies: Fatigue, Heat or cold intolerance, Polydipsia, Polyuria Gastrointestinal: Reports: As per HPI, Abdominal pain. Denies: Constipation, Diarrhea, Hematemesis, Hematochezia, Melena, Nausea, Vomiting Genitourinary: Reports: As per HPI. Denies: Dysuria, Frequency, Hematuria, Incontinence, Retention, Testicular pain, Testicular mass, Urgency Musculoskeletal: Reports: As per HPI. Denies: Arthralgia, Back pain, Gout, Joint swelling, Myalgia, Neck pain Skin: Reports: As per HPI. Denies: Bruising, Change in color, Change in hair/nails, Lesions, Pruritus, Rash Neurological: Reports: As per HPI. Denies: Abnormal gait, Confusion, Headache, Numbness, Paresthesias, Seizure, Tingling, Tremors, Vertigo, Weakness Psychiatric: Reports: As per HPI. Denies: Anxiety, Auditory hallucinations, Depression, Homicidal thoughts, Suicidal thoughts, Visual hallucinations Hematological/Lymphatic: Reports: As per HPI. Denies: Anemia, Blood Clots, Easy bleeding, Easy bruising, Swollen glands Past Medical History - SOCIAL HISTORY Smoking Status: Former smoker - RESPIRATORY Hx Respiratory Disorders: Yes Hx COPD: Yes - CARDIOVASCULAR Hx Cardio Disorders: Yes Hx Abnormal EKG: Yes Hx Cardiac Cath: Yes Hx Heart Attack: Yes Hx Irregular Heartbeat: Yes - NEURO Hx Neuro Disorders: No - GI Hx GI Disorders: No - Hx Genitourinary Disorders: Yes Hx Bladder Problem: Yes (prostate surgery) Hx Prostate Problems: Yes Comment:: No control after surgery - ENDOCRINE Hx Endocrine Disorders: No Hx Diabetes: No Hx Thyroid Disease: No - MUSCULOSKELETAL Hx Musculoskeletal Disorders: Yes Hx Arthritis: Yes (bilateral shoulders) - PSYCH Hx Psych Problems: No - HEMATOLOGY/ONCOLOGY Hx Hematology/Oncology Disorders: No Family Medical History Any Significant Family History?: Yes Hx Cancer: Mother, Brother/Sister Hx Heart Disease: Father Hx Stroke: Father Physical Exam - General General Appearance: Alert, Oriented x3, Cooperative, Mild distress - Head Head exam: Normal inspection - Eye Eye exam: Normal appearance, PERRL, EOMI Pupils: Normal accommodation - ENT ENT exam: Normal exam, Mucous membranes moist, Normal external ear exam, Normal orophraynx Ear exam: Normal external inspection. negative: External canal tenderness Nasal Exam: Normal inspection. negative: Discharge, Sinus tenderness Mouth exam: Normal external inspection, Tongue normal Teeth exam: Normal inspection. negative: Dental caries Throat exam: Normal inspection. negative: Tonsillar erythema, Tonsillar exudate - Neck Neck exam: Normal inspection, Full ROM. negative: Tenderness - Respiratory Respiratory exam: Normal lung sounds bilaterally. negative: Respiratory d istress - Cardiovascular Cardiovascular Exam: Normal rhythm, Normal heart sounds, Tachycardia - GI/Abdominal GI/Abdominal exam: Soft, Normal bowel sounds, Tenderness - Rectal Rectal exam: Deferred - exam: Deferred - Extremities Extremities exam: Normal inspection, Full ROM, Normal capillary refill. negative: Tenderness - Back Back exam: Reports: Normal inspection, Full ROM. Denies: Muscle spasm, Rash noted, Tenderness - Neurological Neurological exam: Alert, CN II-XII intact, Normal gait, Oriented X3 - Psychiatric Psychiatric exam: Normal affect, Normal mood - Skin Skin exam: Dry, Intact, Normal color, Warm Course Vital Signs 01/18/19 21:21 Temperature 97.6 F Pulse Rate [ 104 H Left] Respiratory 22 Rate Blood Pressure 133/69 [Left] Pulse Ox 93 L - Reevaluation(s) Reevaluation #1: 01/18/19 23:47 pt feels better. he did desat to 87 and was placed on o2 Medical Decision Making - Lab Data Result diagrams: 01/18/19 21:25 01/18/19 21:25 Disposition Disposition: Admit Clinical Impression: Diverticulitis large intestine Qualifiers: Diverticulitis bleeding: without bleeding Diverticulitis complication: without perforation or abscess Qualified Code(s): K57.32 - Diverticulitis of large intestine without perforation or abscess without bleeding Disposition: Still a Patient at [facility] Decision to Admit: Admit from ER Decision to Admit Date: 01/18/19 Decision to Admit Time: 23:47 Forms: Patient Portal Access Quality - Quality Measures Quality Measures: N/A - Blood Pressure Screening Does Patient Have Any of the Following: No Blood Pressure Classification: Pre-Hypertensive BP Reading Systolic Measurement: 133 Diastolic Measurement: 69 Screening for High Blood Pressure: < Pre-Hypertensive BP, F/U Documented > [G8950] Pre-Hypertensive Follow-up Interventions: Follow-up with rescreen every year.
[2019-01-18] MEDS ORDERED: 0.9 % SODIUM CHLORIDE 1,000 ML BAG IV ONE (21:38)
[2019-01-18 21:51] LABS: ABSOLUTE NEUTROPHIL COUNT 5.44; BASO % 0.1 % (0-6); EOS % 1.3 % (0-6); GRAN % 73.5 % (47-80); HEMATOCRIT 50.6 % (42.0-52.0); LYMPH % 18.1 % (16-45); MEAN CORPUSCULAR HEMOGLOBIN 33.9 pg (27-33); MEAN CORPUSCULAR HGB CONC 33.6 g/dl (32-36); PLATELET COUNT 154 K/uL (130-400); RED BLOOD COUNT 5.01 M/uL (4.40-5.70); RED CELL DISTRIBUTION WIDTH 15.2 % (11.5-14.5); WHITE BLOOD COUNT W/O DIFF 7.4 K/uL (4.2-12.2)
[2019-01-18] MEDS ORDERED: MORPHINE SULFATE 5 MG/ML VIAL IVP ONE (21:54)
[2019-01-18 22:05] LABS: BLOOD UREA NITROGEN 27 mg/dL (8-23); CREATININE 1.1 mg/dL (0.7-1.2); EST GLOMERULAR FILTRATION RATE > 60 mL/min
[2019-01-18 22:06] LABS: LIPASE 28 U/L (13-60); TOTAL PROTEIN 7.7 g/dL (6.6-8.7)
[2019-01-18 22:08] LABS: GLUCOSE,RANDOM 195 mg/dL (74-109)
[2019-01-18 22:10] LABS: ALT/SGPT 15 U/L (<41); AST/SGOT 18 U/L (10.0-50.0)
[2019-01-18 22:11] LABS: ALBUMIN 4.7 g/dL (4.0-5.0); ALKALINE PHOSPHATASE 81 U/L (40-129); BILIRUBIN,DIRECT < 0.2 mg/dL (0-0.3)
[2019-01-18 23:31] LABS: URINE APPEARANCE CLEAR; URINE BILIRUBIN NEGATIVE (NEGATIVE); URINE BLOOD NEGATIVE (NEGATIVE); URINE COLOR YELLOW; URINE GLUCOSE (UA) NEGATIVE (NEGATIVE); URINE KETONE NEGATIVE (NEGATIVE); URINE LEUKOCYTE ESTERASE NEGATIVE (NEGATIVE); URINE NITRITE NEGATIVE (NEGATIVE); URINE PROTEIN NEGATIVE (NEGATIVE); URINE UROBILINOGEN 0.2 E.U./dL (0.20 - 1.00)
[2019-01-18] MEDS ORDERED: CIPROFLOXACIN LACTATE/D5W 400 MG/200 ML BAG IVPB ONE (23:34)
[2019-01-19] MEDS ORDERED: MORPHINE SULFATE 5 MG/ML VIAL IVP PRN (00:50)
[2019-01-19] MEDS ORDERED: SENNOSIDES/DOCUSATE SODIUM UD CAPSULE PO PRN (00:50)
[2019-01-19] MEDS ORDERED: ONDANSETRON HCL IV 4 MG/2 ML VIAL IVP PRN (00:50)
[2019-01-19] MEDS: METRONIDAZOLE IVPB 500 MG/100 ML BAG IVPB SCH ×3 (02:04→18:17)
[2019-01-19 06:11] LABS: HEMATOCRIT 41.8 % (42.0-52.0); HEMOGLOBIN 14.1 gm/dl (14.0-18.0); MEAN CORPUSCULAR HGB CONC 33.7 g/dl (32-36); PLATELET COUNT 125 K/uL (130-400); RED BLOOD COUNT 4.14 M/uL (4.40-5.70); RED CELL DISTRIBUTION WIDTH 14.9 % (11.5-14.5); WHITE BLOOD COUNT W/O DIFF 9.6 K/uL (4.2-12.2)
[2019-01-19] MEDS: ACETAMINOPHEN 500 MG TABLET PO SCH ×3 (07:12→21:39)
[2019-01-19 09:10] LABS: BLOOD UREA NITROGEN 18 mg/dL (8-23); EST GLOMERULAR FILTRATION RATE > 60 mL/min
[2019-01-19 09:12] LABS: GLUCOSE,RANDOM 157 mg/dL (74-109)
[2019-01-19 09:19] LABS: LACTIC ACID 1.8 mmol/L (0.5-2.2)
[2019-01-19] MEDS ORDERED: FLU VAC QS 2019-20 (INPT, 6MO+) 60MCG/0.5ML IM ONE (10:00)
[2019-01-19] MEDS: CIPROFLOXACIN LACTATE/D5W 400 MG/200 ML BAG IVPB SCH ×2 (10:15→21:41)
[2019-01-19] MEDS: ASPIRIN 81 MG TABEC PO SCH (10:16)
--- NOTE | 2019-01-19 10:42 | History & Physical ---
History of Present Illness - Date of Service Date of Service for History & Physical: 01/19/19 - History of Present Illness Admitting Diagnosis: diverticulitis History of Present Illness: 88 yo male presents to [facility] ER for abd pain. Pain started a few days ago, gradually increasing and then becoming unbearable. Pt denies blood in stool. NO sick contacts, denies recent diet change, or possible under cooked food. Pt denies any abd issues in the past. 97.6, HR 104, BP 133/69, RR 22, 93% RA, pain 10 WBC 7.4, Hgb 17, Hct 50.6, Plt 154 Na 141, K 4.1, CL 101, CO2 21, Anion gap 19, BUN 27, Cr 1.1, GFR >60, glucose 195, LFTs wnl Lipase 28 Lactic acid 3.[address] abd shows diverticulitis w/o abscess or perforation Pt given 500mL NS, cipro 400mg IVPB q12, flagyl 500mg q8, Morphine 2mg IVP -pt desated after morphine, was placed on O2 and recovered 01/19/19 Pt sitting EOB, tolerating CLD, pain is "tolerable" but pt reports feeling weak and still having abd tenderness. pt does not appear in distress, a&ox4, moving all extremities. Lungs CTA, heart RRR, pulses +3 DP/PT, no edema noted. BS x4 but TTP espescially LLQ and umbilical. Pt denies any diarrhea or constipation. POC cipro and flaygl, morphine for pain, advance to soft diet and PO meds. Co nsider GI consult if not able to tolerate PO meds or worsening labs. PCP Héctor hilton Travel Screening - Travel/Exposure Within Last 30 Days Have you traveled within the last 30 days?: No - Travel/Exposure Within Last Year Have you traveled outside the [place] in the last year?: No - Additonal Travel Details Have you been exposed to anyone with a communicable illness?: No - Travel Symptoms Symptom Screening: None Review of Systems Constitutional: Reports: As per HPI. Denies: Chills, Fever, Malaise, Night sweats, Weakness, Weight change Eyes: Reports: As per HPI. Denies: Eye discharge, Eye pain, Photophobia, Vision change ENT: Reports: As per HPI. Denies: Congestion, Dental pain, Ear pain, Epistaxis, Hearing loss, Throat pain Respiratory: Reports: As per HPI. Denies: Cough, Dyspnea, Hemoptysis, Stridor, Wheezes Cardiovascular: Reports: As per HPI. Denies: Arrhythmia, Chest pain, Dyspnea on exertion, Edema, Murmurs, Orthopnea, Palpitations, Paroxysmal nocturnal dyspnea, Rheumatic Fever, Syncope Endocrine: Reports: As per HPI. Denies: Fatigue, Heat or cold intolerance, Polydipsia, Polyuria Gastrointestinal: Reports: As per HPI, Abdominal pain. Denies: Constipation, Diarrhea, Hematemesis, Hematochezia, Melena, Nausea, Vomiting Genitourinary: Reports: As per HPI. Denies: Dysuria, Frequency, Hematuria, Incontinence, Retention, Testicular pain, Testicular mass, Urgency Musculoskeletal: Reports: As per HPI. Denies: Arthralgia, Back pain, Gout, Joint swelling, Myalgia, Neck pain Skin: Reports: As per HPI. Denies: Bruising, Change in color, Change in hair/nails, Lesions, Pruritus, Rash Neurological: Reports: As per HPI. Denies: Abnormal gait, Confusion, Headache, Numbness, Paresthesias, Seizure, Tingling, Tremors, Vertigo, Weakness Psychiatric: Reports: As per HPI. Denies: Anxiety, Auditory hallucinations, Depression, Homicidal thoughts, Suicidal thoughts, Visual hallucinations Hematological/Lymphatic: Reports: As per HPI. Denies: Anemia, Blood Clots, Easy bleeding, Easy bruising, Swollen glands Past Medical History - SOCIAL HISTORY Smoking Status: Former smoker Alcohol Use: Occasional Drug Use: None - RESPIRATORY Hx Respiratory Disorders: Yes Hx COPD: Yes Hx Sleep Apnea: Yes Hx of CPAP: Yes - CARDIOVASCULAR Hx Cardio Disorders: Yes Hx Abnormal EKG: Yes Hx Cardiac Cath: Yes Hx Edema: Yes Hx Heart Attack: Yes Hx Irregular Heartbeat: Yes - NEURO Hx Neuro Disorders: No - GI Hx GI Disorders: No Hx of Polyps: Yes - Hx Genitourinary Disorders: Yes Hx Bladder Problem: Yes (prostate surgery) Hx Kidney Stones: Yes Hx Prostate Problems: Yes Comment:: No control after surgery - ENDOCRINE Hx Endocrine Disorders: No Hx Diabetes: No Hx Thyroid Disease: No - MUSCULOSKELETAL Hx Musculoskeletal Disorders: Yes Hx Arthritis: Yes (bilateral shoulders) - PSYCH Hx Psych Problems: No Hx Depression: Yes - HEMATOLOGY/ONCOLOGY Hx Hematology/Oncology Disorders: No Family Medical History Any Significant Family History?: Yes Hx Cancer: Mother, Children, Brother/Sister Hx Heart Disease: Father Hx Liver Disease: Mother Hx Stroke: Father H&P Meds/Allergies - Allergies Allergies: Allergies Allergy/AdvReac Type Severity Reaction Status Date / Time Sulfa (Sulfonamide Allergy Unknown PT UNSURE Verified 01/18/19 21:30 Antibiotics) OF REACTION [SULFA (SULFONAMIDE ANTIBIOTICS)] acetaminophen [From [place]] Allergy ALTERED Verified 01/18/19 21:30 MENTAL STATUS hydrocodone bitartrate Allergy BEHAVIORAL Verified 01/18/19 21:29 [From [place]] CHANGES - Home Medications Previous Rx's Medication Instructions Recorded Acetaminophen [Tylenol 500Mg Tab] 1,000 mg PO Q8HR tablet 10/07/18 Aspirin Enteric-Coated [Ecotrin 81 mg PO DAILY tabec 10/07/18 (EC)] Melatonin 5 mg PO QHS tablet 10/07/18 Sennosides/Docusate Sodium [Senna 2 each PO BID PRN capsule 10/07/18 Plus] - Active Medications Active Medications: Current Medications Acetaminophen (Tylenol 500mg Tab) 1,000 mg PO Q8HR CESAR Last Admin: 01/19/19 07:12 Dose: 1,000 mg Documented by: Aspirin (Ecotrin (Ec)) 81 mg PO DAILY CESAR Last Admin: 01/19/19 10:16 Dose: 81 mg Documented by: Metronidazole/Sodium Chloride (Flagyl) 500 mg in 100 mls @ 100 mls/hr IVPB Q8H CESAR Stop: 01/24/19 02:01 Last Infusion: 01/19/19 03:05 Dose: Infused Documented by: Ciprofloxacin Lactate (Cipro) 400 mg in 200 mls @ 200 mls/hr IVPB Q12H CESAR Stop: 01/24/19 10:01 Last Admin: 01/19/19 10:15 Dose: 200 mls/hr Documented by: Melatonin (Melatonin) 5 mg PO QHS CESAR Morphine Sulfate (Morphine Sulfate) 1 mg IVP Q4H PRN PRN Reason: PAIN - SEVERE (8-10) Stop: 01/26/19 00:51 Ondansetron HCl (Zofran) 4 mg IVP Q4H PRN PRN Reason: NAUSEA Senna/Docusate Sodium (Senna Plus) 2 each PO BID PRN PRN Reason: CONSTIPATION Physical Exam - Vital Signs Vital Signs: Vital Signs - Last 24 Hrs Temp Pulse Pulse Pulse Resp BP BP 01/19/19 10:24 18 01/19/19 06:00 98.6 F 79 18 103/56 01/19/19 00:50 97.7 F 107 H 20 129/66 01/19/19 00:37 99.1 F 70 18 115/69 01/18/19 21:21 97.6 F 104 H 22 133/69 Pulse Ox 01/19/19 10:24 93 L 01/19/19 06:00 94 L 01/19/19 00:50 93 L 01/19/19 00:37 93 L 01/18/19 21:21 93 L - General General Appearance: Alert, Oriented x3, Cooperative, No acute distress Limitations: No limitations - Head Head exam: Normal inspection - Eye Eye exam: Normal appearance, PERRL, EOMI Pupils: Normal accommodation - ENT ENT exam: Normal exam, Mucous membranes moist, Normal external ear exam, Normal orophraynx Ear exam: Normal external inspection. negative: External canal tenderness Nasal Exam: Normal inspection. negative: Discharge, Sinus tenderness Mouth exam: Normal external inspection, Tongue normal Teeth exam: Normal inspection. negative: Dental caries Throat exam: Normal inspection. negative: Tonsillar erythema, Tonsillar exudate - Neck Neck exam: Normal inspection, Full ROM. negative: Tenderness - Respiratory Respiratory exam: Normal lung sounds bilaterally. negative: Respiratory distress - Cardiovascular Cardiovascular Exam: Regular rate, Normal rhythm, Normal heart sounds Peripheral Pulses: 3+: Radial (R), Radial (L), Dorsalis Pedis (R), Dorsalis Pedis (L) - GI/Abdominal GI/Abdominal exam: Soft, Normal bowel sounds, Tenderness - Rectal Rectal exam: Deferred - exam: Deferred - Extremities Extremities exam: Normal inspection, Full ROM, Normal capillary refill. negative: Tenderness - Back Back exam: Reports: Normal inspection, Full ROM. Denies: Muscle spasm, Rash noted, Tenderness - Neurological Neurological exam: Alert, CN II-XII intact, Normal gait, Oriented X3 - Psychiatric Psychiatric exam: Normal affect, Normal mood - Skin Skin exam: Dry, Intact, Normal color, Warm Results - Labs Result Diagrams: 01/19/19 06:00 01/19/19 08:53 Labs Last 24 Hours: Laboratory Results - last 24 hr 01/18/19 01/18/19 01/18/19 21:25 21:25 21:25 WBC 7.4 RBC 5.01 Hgb 17.0 Hct 50.6 MCV 101.0 H MCH 33.9 H MCHC 33.6 RDW 15.2 H Plt Count 154 MPV 11.0 H Gran % 73.5 Neutrophils % Lymphocytes % 18.1 Monocytes % 7.0 Eosinophils % 1.3 Basophils % 0.1 Absolute Neutrophils 5.44 Lymphocytes Monocytes Sodium 141 Potassium 4.1 Chloride 101 Carbon Dioxide 21.0 L Anion Gap 19.0 H BUN 27 H Creatinine 1.1 Estimated GFR > 60 Random Glucose 195 H Lactic Acid Calcium 9.7 Total Bilirubin 0.50 Direct Bilirubin < 0.2 AST 18 ALT 15 Alkaline Phosphatase 81 Total Protein 7.7 Albumin 4.7 Lipase 28 Urine Color Yellow Urine Appearance Clear Urine pH 5.5 Ur Specific [place] 1.025 Urine Protein Negative Urine Glucose (UA) Negative Urine Ketones Negative Urine Blood Negative Urine Nitrite Negative Urine Bilirubin Negative Urine Urobilinogen 0.2 Ur Leukocyte Esterase Negative 01/18/19 01/19/19 01/19/19 21:40 06:00 08:53 WBC 9.6 RBC 4.14 L Hgb 14.1 Hct 41.8 L MCV 101.0 H MCH 34.0 H MCHC 33.7 RDW 14.9 H Plt Count 125 L MPV 10.0 Gran % Neutrophils % 83.0 H Lymphocytes % Monocytes % Eosinophils % Not Reportable Basophils % Not Reportable Absolute Neutrophils Not Reportable Lymphocytes 10.0 L Monocytes 7.0 Sodium 139 Potassium 4.4 Chloride 104 Carbon Dioxide 23.0 Anion Gap 12.0 BUN 18 Creatinine 1.0 Estimated GFR > 60 Random Glucose 157 H Lactic Acid 3.3 H 1.8 Calcium 8.9 Total Bilirubin Direct Bilirubin AST ALT Alkaline Phosphatase Total Protein Albumin Lipase Urine Color Urine Appearance Urine pH Ur Specific [place] Urine Protein Urine Glucose (UA) Urine Ketones Urine Blood Urine Nitrite Urine Bilirubin Urine Urobilinogen Ur Leukocyte Esterase - Imaging and Cardiology CT scan - abdomen Status: Pending VTE H&P Assessment - Risk for VTE Risk for VTE: Yes Risk Level: High Risk Assessment Date: 01/19/19 Risk Assessment Time: 10:42 VTE Orders Placed or Will Be Placed: Yes Plan - Inpatient Certification Inpatient Certification: Admit to inpatient care: Based on my medical assessment, after consideration of patient's risk factors (age, co-morbidities and patient presenting symptoms and acuity), I expect that this patient will remain in the hospital greater than or equal to two midnights and that the services needed warrant inpatient care because: Patient Risk Factors: dehydration, progressive infection, electrolyte imbalance Estimated length of stay: The patient may reasonably be expected to be discharged or transferred to a hospital within 96 hours after admission to [facility]. Services needed: IV abx, repeat labs, electrolyte management Post hospital care (if known): I certify that my determination is in accordance with my understanding of Medicare requirements for reasonable and necessary inpatient services. 01/19/19 10:43 - Detailed Diagnosis and Plan (1) Diverticulitis large intestine Current Visit: Yes Status: Acute Qualifiers: Diverticulitis bleeding: without bleeding Diverticulitis complication: without perforation or abscess Qualified Code(s): K57.32 - Diverticulitis of large intestine without perforation or abscess without bleeding Base Code: K57.32 - DVTRCLI OF LG INT W/O PERFORATION OR ABSCESS W/O BLEEDING Comment: 01/19/19 -CLD until pain controlled, advance as tolereated -pt reports pain is 2/10 resting but increases to 9/10 with coughing, flonase ordered to decrease PND and cough -cipro and flaygl IVPB until pt tolerate soft diet (2) Lactic acidosis Current Visit: Yes Status: Acute Base Code: E87.2 - ACIDOSIS Comment: 01/19/19 -lactic acid 3.3->1.8 -continue to encourage Clear liq (3) Full code status Current Visit: No Status: Acute Base Code: Z78.9 - OTHER SPECIFIED HEALTH STATUS Comment: 01/19/19 -Pt. is a full code (4) DVT prophylaxis Current Visit: Yes Status: Acute Base Code: Z29.9 - ENCOUNTER FOR PROPHYLACTIC MEASURES, UNSPECIFIED Comment: 01/19/19 -pt is high risk for DVT based on age and decreased mobility, there are risks of lovenox but CT does not reveal any perforations and no current source of bleeing -start Lovenox 40mg daily after first 24 hrs
[2019-01-19] MEDS ORDERED: FLUTICASONE PROPIONATE 50MCG NASAL 16 GM BTL ONE (15:33)
[2019-01-19] MEDS: FLUTICASONE PROPIONATE 50MCG NASAL 16 GM BTL SCH ×2 (17:58→21:39)
[2019-01-19] MEDS ORDERED: MELATONIN 5 MG TABLET PO SCH (22:00)
[2019-01-20] MEDS: METRONIDAZOLE IVPB 500 MG/100 ML BAG IVPB SCH ×2 (01:49→11:23)
[2019-01-20] MEDS: ACETAMINOPHEN 500 MG TABLET PO SCH (06:35)
[2019-01-20 06:58] LABS: ABSOLUTE NEUTROPHIL COUNT 7.31; HEMATOCRIT 45.8 % (42.0-52.0); HEMOGLOBIN 14.8 gm/dl (14.0-18.0); MEAN CELL VOLUME 102.2 fl (81-97); MEAN CORPUSCULAR HGB CONC 32.3 g/dl (32-36); MEAN PLATELET VOLUME 10.6 fl (7.4-10.4); PLATELET COUNT 143 K/uL (130-400); RED BLOOD COUNT 4.48 M/uL (4.40-5.70); RED CELL DISTRIBUTION WIDTH 14.9 % (11.5-14.5); WHITE BLOOD COUNT W/O DIFF 8.9 K/uL (4.2-12.2)
[2019-01-20 07:11] LABS: BLOOD UREA NITROGEN 15 mg/dL (8-23); CREATININE 0.9 mg/dL (0.7-1.2); EST GLOMERULAR FILTRATION RATE > 60 mL/min; GLUCOSE,RANDOM 112 mg/dL (74-109)
--- NOTE | 2019-01-20 07:11 | CT SCAN REPORT ---
EXAM: CT SCAN OF THE ABDOMEN AND PELVIS WITHOUT CONTRAST HISTORY: LOWER ABDOMINAL PAIN FOR THE PAST FOUR DAYS. WORSENING SYMPTOMS. TECHNIQUE: Standard CT imaging of the abdomen of the abdomen and pelvis was performed without contrast. Comparison: 12/08/09. FINDINGS: Emphysematous and fibrotic changes are present at both lung bases. A large hiatal hernia is present. Coronary artery calcifications are also noted. The liver is unremarkable. The gallbladder is surgically absent. The biliary tree, pancreas, spleen, and adrenal glands are normal. A 2 cm exophytic cyst is present off of the lower pole of the left kidney. This is slightly larger than the prior study where it measured 1.5 cm. There is no acute urinary tract pathology. Atherosclerotic changes are present within the aorta. There is no aneurysm. There is no retroperitoneal lymphadenopathy. There are numerous diverticula within the descending and sigmoid colon regions. There is abnormal wall thickening within the sigmoid colon with adjacent fat stranding consistent with acute diverticulitis. There is mild wall thickening of adjacent small bowel loops which is likely reactive in nature. There is liquid stool within the proximal colon. A few mildly distended fluid filled small bowel loops are also present within the right mid abdomen. There is no high grade obstruction, pneumoperitoneum, or ascites. There is no discrete abscess. The urinary bladder is normal. The prostate is surgically absent. There is a small fat containing left inguinal hernia. Degenerative changes and levoconvex scoliosis are present within the lumbar spine. IMPRESSION: 1. ACUTE SIGMOID DIVERTICULITIS WITH NO EVIDENCE FOR ABSCESS OR PNEUMOPERITONEUM. THERE IS MILD WALL THICKENING OF ADJACENT SMALL BOWEL LOOPS WHICH IS LIKELY REACTIVE IN NATURE. 2. MILD DISTENTION OF THE PROXIMAL COLON AND DISTAL SMALL BOWEL LOOPS WITH NO HIGH GRADE OBSTRUCTION. 3. ADDITIONAL CHRONIC FINDINGS ABOVE. JOB NUMBER: [id number] [facility]
[2019-01-20 07:29] LABS: PLATELET ESTIMATE NORMAL (NORMAL)
[2019-01-20] MEDS: CIPROFLOXACIN LACTATE/D5W 400 MG/200 ML BAG IVPB SCH (09:58)
[2019-01-20] MEDS: ASPIRIN 81 MG TABEC PO SCH (09:58)
[2019-01-20] MEDS: FLUTICASONE PROPIONATE 50MCG NASAL 16 GM BTL SCH ×2 (09:59→10:01)
[2019-01-20] MEDS ORDERED: FLU VAC QS 2019-20 (INPT, 6MO+) 60MCG/0.5ML IM ONE (10:00)
[2019-01-20] MEDS ORDERED: ENOXAPARIN 40 MG/0.4 ML SYR SQ SCH (10:00)
--- NOTE | 2019-01-20 10:50 | Discharge Summary ---
Providers Discharge Summary Date: 01/20/19 Date of admission: 01/19/19 00:19 Expected Date of Discharge: 01/20/19 Attending physician: TOBI RIDLEY Primary care physician: TOBI RIDLEY Physical Exam - Vital Signs Vital Signs: Vital Signs - Last 24 Hrs Temp Pulse Pulse Resp BP BP Pulse Ox 01/20/19 09:57 97.3 F L 79 16 104/58 92 L 01/20/19 08:18 75 01/20/19 06:00 97.9 F 80 20 124/67 97 01/20/19 02:00 97.8 F 80 20 97 01/19/19 20:00 97.9 F 78 18 115/73 95 01/19/19 17:56 82 18 138/70 95 01/19/19 14:00 20 133/75 - General General Appearance: Alert, Oriented x3, Cooperative, No acute distress Limitations: No limitations - Head Head exam: Normal inspection - Eye Eye exam: Normal appearance, PERRL, EOMI Pupils: Normal accommodation - ENT ENT exam: Normal exam, Mucous membranes moist, Normal external ear exam, Normal orophraynx Ear exam: Normal external inspection. negative: External canal tenderness Nasal Exam: Normal inspection. negative: Discharge, Sinus tenderness Mouth exam: Normal external inspection, Tongue normal Teeth exam: Normal inspection. negative: Dental caries Throat exam: Normal inspection. negative: Tonsillar erythema, Tonsillar exudate - Neck Neck exam: Normal inspection, Full ROM. negative: Tenderness - Respiratory Respiratory exam: Normal lung sounds bilaterally. negative: Respiratory distress - Cardiovascular Cardiovascular Exam: Regular rate, Normal rhythm, Normal heart sounds Peripheral Pulses: 3+: Radial (R), Radial (L), Dorsalis Pedis (R), Dorsalis Pedis (L) - GI/Abdominal GI/Abdominal exam: Soft, Normal bowel sounds, Tenderness - Rectal Rectal exam: Deferred - exam: Deferred - Extremities Extremities exam: Normal inspection, Full ROM, Normal capillary refill. negative: Tenderness - Back Back exam: Reports: Normal inspection, Full ROM. Denies: Muscle spasm, Rash noted, Tenderness - Neurological Neurological exam: Alert, CN II-XII intact, Normal gait, Oriented X3 - Psychiatric Psychiatric exam: Normal affect, Normal mood - Skin Skin exam: Dry, Intact, Normal color, Warm Hospitalization - Hospitalization Admission Diagnosis: diverticulitis - Problem List/Discharge Diagnosis (1) Diverticulitis large intestine Current Visit: Yes Status: Acute Discharge Diagnosis: Diverticulitis bleeding: without bleeding Diverticulitis complication: without perforation or abscess Qualified Code(s): K57.32 - Diverticulitis of large intestine without perforation or abscess without bleeding Base Code: K57.32 - DVTRCLI OF LG INT W/O PERFORATION OR ABSCESS W/O BLEEDING Comment: 01/19/19 -CLD until pain controlled, advance as tolereated -pt reports pain is 2/10 resting but increases to 9/10 with coughing, flonase ordered to decrease PND and cough -cipro and flaygl IVPB until pt tolerate soft diet 01/20/19 -pt tolerating soft diet, had BM today with improvment in pain -abd still TTP but pt resting, reports 1.5/10 pain -no blood in stool, no N/V -labs have improved and remain unremarkable (2) Lactic acidosis Current Visit: Yes Status: Acute Base Code: E87.2 - ACIDOSIS Comment: 01/19/19 -lactic acid 3.3->1.8 -continue to encourage Clear liq 01/20/19 -pt tolerating PO intake, VSS (3) Full code status Current Visit: No Status: Acute Base Code: Z78.9 - OTHER SPECIFIED HEALTH STATUS Comment: 01/20/19 -Pt. is a full code (4) DVT prophylaxis Current Visit: Yes Status: Acute Base Code: Z29.9 - ENCOUNTER FOR PROPHYLACTIC MEASURES, UNSPECIFIED Comment: 01/20/19 -pt is high risk for DVT based on age and decreased mobility, there are risks of lovenox but CT does not reveal any perforations and no current source of bleeing -start Lovenox 40mg daily after first 24 hrs - Hospitalization Course Disposition: Home, Self-Care Hospital Course: 88 yo male presents to [facility] ER for abd pain. Pain started a few days ago, gradually increasing and then becoming unbearable. Pt denies blood in stool. NO sick contacts, denies recent diet change, or possible under cooked food. Pt denies any abd issues in the past. 97.6, HR 104, BP 133/69, RR 22, 93% RA, pain 10/10 WBC 7.4, Hgb 17, Hct 50.6, Plt 154 Na 141, K 4.1, CL 101, CO2 21, Anion gap 19, BUN 27, Cr 1.1, GFR >60, glucose 195, LFTs wnl Lipase 28 Lactic acid 3.[address] abd shows diverticulitis w/o abscess or perforation Pt given 500mL NS, cipro 400mg IVPB q12, flagyl 500mg q8, Morphine 2mg IVP -pt desated after morphine, was placed on O2 and recovered 01/19/19 Pt sitting EOB, tolerating CLD, pain is "tolerable" but pt reports feeling weak and still having abd tenderness. pt does not appear in distress, a&ox4, moving all extremities. Lungs CTA, heart RRR, pulses +3 DP/PT, no edema noted. BS x4 but TTP espescially LLQ and umbilical. Pt denies any diarrhea or constipation. POC cipro and flaygl, morphine for pain, advance to soft diet and PO meds. Consider GI consult if not able to tolerate PO meds or worsening labs. PCP [facility] Procedures: Imaging and X-Rays 01/18/19 21:38 ABDOMEN/PELVIS WO CONTRAST [CT] Stat Abnormal Labs: Abnormal Lab Results 01/18/19 01/18/19 01/18/19 Range/Units 21:25 21:25 21:40 RBC (4.40-5.70) M/uL Hct (42.0-52.0) % MCV 101.0 H (81-97) fl MCH 33.9 H (27-33) pg RDW 15.2 H (11.5-14.5) % Plt Count (130-400) K/uL MPV 11.0 H (7.4-10.4) fl Neutrophils % (47-80) % Lymphocytes (16-45) % Carbon Dioxide 21.0 L (22-29) mmol/L Anion Gap 19.0 H (7-16) BUN 27 H (8-23) mg/dL Random Glucose 195 H (74-109) mg/dL Lactic Acid 3.3 H (0.5-2.2) mmol/L 01/19/19 01/19/19 01/20/19 Range/Units 06:00 08:53 06:30 RBC 4.14 L (4.40-5.70) M/uL Hct 41.8 L (42.0-52.0) % MCV 101.0 H 102.2 H (81-97) fl MCH 34.0 H (27-33) pg RDW 14.9 H 14.9 H (11.5-14.5) % Plt Count 125 L (130-400) K/uL MPV 10.6 H (7.4-10.4) fl Neutrophils % 83.0 H (47-80) % Lymphocytes 10.0 L 15.0 L (16-45) % Carbon Dioxide (22-29) mmol/L Anion Gap (7-16) BUN (8-23) mg/dL Random Glucose 157 H (74-109) mg/dL Lactic Acid (0.5-2.2) mmol/L 01/20/19 Range/Units 06:30 RBC (4.40-5.70) M/uL Hct (42.0-52.0) % MCV (81-97) fl MCH (27-33) pg RDW (11.5-14.5) % Plt Count (130-400) K/uL MPV (7.4-10.4) fl Neutrophils % (47-80) % Lymphocytes (16-45) % Carbon Dioxide (22-29) mmol/L Anion Gap (7-16) BUN (8-23) mg/dL Random Glucose 112 H (74-109) mg/dL Lactic Acid (0.5-2.2) mmol/L Condition at Discharge: (2) Stable Discharge Medications - Discharge Medications Prescriptions: Ciprofloxacin HCl [Cipro] 500 mg PO Q12HR 8 Days #16 tablet Metronidazole [Flagyl] 500 mg PO Q8H 8 Days #24 tablet Fluticasone Propionate [Flonase] 1 spray NA BID #1 btl Home Medications: Ambulatory Orders Acetaminophen [Tylenol 500Mg Tab] 1,000 mg PO Q8HR tablet 10/07/18 [Last Taken 01/18/19] Aspirin Enteric-Coated [Ecotrin (EC)] 81 mg PO DAILY tabec 10/07/18 [Last Taken 01/17/19] Melatonin 5 mg PO QHS tablet 10/07/18 [Last Taken 01/17/19] Sennosides/Docusate Sodium [Senna Plus] 2 each PO BID PRN capsule 10/07/18 [Last Taken 01/17/19] Ciprofloxacin HCl [Cipro] 500 mg PO Q12HR 8 Days #16 tablet 01/20/19 [Last Taken Unknown] Fluticasone Propionate [Flonase] 1 spray NA BID #1 btl 01/20/19 [Last Taken Unknown] Metronidazole [Flagyl] 500 mg PO Q8H 8 Days #24 tablet 01/20/19 [Last Taken Unknown] Discharge Plan - Discharge Instructions Activity at Discharge: Increase Activity as Tolerated Diet at Discharge: Advance to Usual Diet Quality Measures - Quality Measures Quality Measures: Advance Directives, Documentation of Current Medications in Medical Record, Elder Maltreatment Screen and Follow-Up Plan, Screening for High Blood Pressure and F/U Documented - Current Medications Quality Measure: Measure #130: Documentation of Current Medications Documentation of Current Medications: <Current Medications Documented/Reviewed> [G8427] - Blood Pressure Screening Quality Measure: Screening for High Blood Pressure and Follow-Up Documented Does Patient Have Any of the Following: Active Dx of HTN Blood Pressure Classification: Normal BP Reading Systolic Measurement: 115 Diastolic Measurement: 69 Screening for High Blood Pressure: Patient Exclusion, Hx of HTN [G9744] - Advance Directives Quality Measure: Measure #47: Care Plan Advance Directives Established: No Advance Directives Information Provided To Patient: No Advance Directives on File: No Living Will: Yes Power of Director Digital: Yes Power of Director Digital Name: Maria Teresa Roger and Rayne Carreon Advance Care Planning: <Care Plan/Decision Maker Documented; Discussed & Documented> [1123F] - Elder Abuse Suspicion Index Screening: Elder Abuse Suspicion Index Screening Rely on people for bathing, dressing, shopping, banking, etc: No Prevented from getting food, clothes, medication, etc: No Made to feel shamed or threatened by someone: No Forced to sign papers or use money against will: No Feel afraid, touched in ways not wanted or hurt physically: No Poor eye contact, withdrawn, malnourished, cuts or bruises: No Screening Result: Negative result EASI Reference Information: Braden TRUJILLO, Mari C, Cedric D, [place] Ospina.Development and validation of a tool to assist physicians identification of elder abuse: The Elder Abuse Suspicion Index (EASI ). Journal of Elder Abuse and Neglect, 2008; 20 (3): 276-300. - Elder Maltreatment Screen Quality Measures: Elder Maltreatment Screen and Follow-Up Plan Elder Maltreatment Screen: <Negative, No Follow-Up Plan Required> [G2949]
--- NOTE | 2019-01-20 11:22 | Rehab Evaluation ---
Patient Information - Patient Information Diagnosis: Diverticulitis Ordered Treatment: PT Evaluate and Treat Status: Initial Evaluation Surgery: No Past Medical/Surgical Hx: PAST MEDICAL/SURGICAL HISTORY Past Surgical History apendix gallbladder heart bypass X2 shoulder sx 09/2018 spinal stimulator trial PMH - Respiratory Hx Respiratory Disorders Yes Hx Chronic Obstructive Yes Pulmonary Disease (COPD) Hx Sleep Apnea Yes Hx of CPAP Yes PMH - Cardiovascular Hx Cardiovascular Disorders Yes Hx Abnormal EKG Yes Hx Cardiac Catheterization Yes Hx Edema Yes Hx Heart Attack Yes Hx Irregular Heartbeat Yes PMH - Neuro Hx Neurological Disorders No PMH - GI Hx Gastrointestinal Disorders No PMH - Hx Genitourinary Disorders Yes Hx Bladder Problem Yes: prostate surgery Hx Kidney Stones Yes Hx Prostate Problems Yes Comment: No control after surgery PMH - Endocrine Hx Endocrine Disorders No Hx Diabetes No Hx Thyroid Disease No PMH - Musculoskeletal Hx Musculoskeletal Disorders Yes Hx Arthritis Yes: bilateral shoulders PMH - Psych Hx Psychiatric Problems No Hx Depression Yes PMH - Hematology/Oncology Hx Hematology/Oncology No Disorders Premorbid Status: Detail (Patient was independent in ADLs prior to the hospital admission. He stated that he lives with his daughter and son-in-law, and they do the cleaning and cooking for him. He did not use an AD for ambulation in the home but used a walking stick outside.) Social History: Detail (The patient lives in a tri-level home with his daughter and son-in-law. His bedroom is on the third floor and bathrooms on the first and third floors. There are 8 steps to get to his bedroom with 2 handrails available to use. There are 3 steps to enter the home with a railing on the R. The bathrooms that the patient uses on the first floor has a walk-in shower with a bench available. Patient stated that he usually stands to shower. There is also an elevated toilet seat. There are grab bars available in the shower and by the toilet. The paitent has a 4-wheeled walker, a quad cane, and walking sticks available to him.) Precautions: [place], Fall - Time With Patient Total Time Spent With Patient (Min): 30 Treatment Procedures: Detail (Initial evaluation; low complexity Patient was left in bed with his call light and bedside table within reach. The nursing staff was notified of his position.) Subjective Information - Subjective Information Per Patient (Patient stated that he had some pain in his stomach this morning.) Objective Data - Pain Pain Present: Yes - Mental Status Patient Orientation: Oriented x3 (Patient was able to identify himself, his birthdate and age, the location, the month, and the current president.) - Visual Perception Appears within normal limits for therapeutic activities - ROM Not within normal limits (Bilateral shoulder flexion ~90 degrees bilaterally with pain, Elbow flexion and extension WNL, LE AROM is within normal limits for functional activities) - Strength/Tone Not within normal limits (Bilateral shoulder flexion 3+/5, Elbow flexion and extension 5/5 bilaterally, Bilateral hip flexion 4/5, Bilateral knee flexion and extension and ankle dorsiflexion 5/5) - Coordination Appears within normal limits for therapeutic activities - Bed Mobility Independent (Patient was able to independently move up and down in bed.) - Transfers Independent (Patient was independent in moving from supine to sit, sit to stand, stand to sit, and sit to supine.) - Balance Balance Sitting: Good (Patient was able to maintain balance while changing his briefs in sitting.) Balance Standing: Fair (Patient exhibits some unsteadiness with his shuffling gait pattern and when having to stand during dynamic balance tasks such as standing and raising one leg to put on his briefs.) - Sensation Intact - Gait Detail (Patient ambulated 100 feet over smooth surfaces with supervision for safety. No AD was used during ambulation. He was able to ascend and descend 10 stairs with supervision for safety. He used 1 railing with both hands and took the stairs going sideways down and up. Patient tried to take the stairs reciprocally and complained of pain and was encouraged to take them one by one to help decrease pain. He complained of pain in his shoulders and L hip.) Therapy Assessment - Therapy Assessment Detail (Patient is able to ambulate with supervision and complete stairs that are necessary for his return home. His balance is at his baseline. The patient will continue with outpatient physical therapy for his shoulder.) Problem List - Problem List Physical Therapy Problem List: Detail (1. Decreased balance 2. Decreased shoulder ROM 3. Decreased UE and LE strength) Goals - Goals Physical Therapy Goals: Patient has met all inpatient PT goals for mobility at this time. Plan - Plan Physical Therapy Plan: All inpatient PT goals have been met at this time.
== END 2019-01-20 13:50 | disposition home or self-care (01) ==
LOC: ER 21:09 → INTOOBSV 01-19 00:19 → MEDSURG 01-19 00:19
PROVIDERS: ADMIT Internal Medicine; ATTEND Internal Medicine
DX: K57.32 Diverticulitis of large intestine without perforation or abscess without bleeding (principal); R06.00 Dyspnea, unspecified; J44.9 Chronic obstructive pulmonary disease, unspecified; I25.2 Old myocardial infarction; M19.90 Unspecified osteoarthritis, unspecified site; Z95.1 Presence of aortocoronary bypass graft; Z87.891 Personal history of nicotine dependence; Z98.61 Coronary angioplasty status; Z23 Encounter for immunization
CPT/HCPCS: 99285 ×2; 96374; 96365; 96366; 83605 ×2; 83690; 85025; 80076; 80048 ×3; 81003; 85027 ×2; 74176; 94760; 90686; G0378 ×2; J0744 ×3; J3490; 99220; 99226; J1650; J7030

== ENCOUNTER 2019-02-04 18:45 | Emergency (ER) | payer MEDICARE ==
[2019-02-04] MEDS: 0.9 % SODIUM CHLORIDE 1000ML 1,000 ML IV SCH ×2 (19:12→20:15)
--- NOTE | 2019-02-04 19:12 | Emergency Department Record ---
History of Present Illness - General Chief complaint: Weakness Stated complaint: WEAKNESS/ LOW BP Time Seen by Provider: 02/04/19 18:57 Source: Patient Mode of Arrival: Wheelchair Limitations: No limitations - History of Present Illness Initial comments: 88 yo male presents to ED for evaluation of generalized weakness symptoms that began this morning. Patient denies fevers, chills, or recent illness, family reports mild cough symptoms. Patient reports body aches and generalized weakness symptoms. Patient reports history of normal BP at his baseline, family reports that the patient's BP was low at home. Patient denies chest pain, abdominal pain, nausea, vomiting, or flank pain on examination. Patient does report loose stools today. MD Complaint: Generalized weakness Onset/Timin -: Days(s) Location: Generalized Severity: Moderate Consistency: Constant Improves with: None - [place] Coma Scale Eye Response: (4) Open spontaneously Motor Response: (6) Obeys commands Verbal Response: (5) Oriented [place] Total: 15 - Related Data Previous Rx's Medication Instructions Recorded Acetaminophen [Tylenol 500Mg Tab] 1,000 mg PO Q8HR tablet 10/07/18 Aspirin Enteric-Coated [Ecotrin 81 mg PO DAILY tabec 10/07/18 (EC)] Melatonin 5 mg PO QHS tablet 10/07/18 Sennosides/Docusate Sodium [Senna 2 each PO BID PRN capsule 10/07/18 Plus] Fluticasone Propionate [Flonase] 1 spray NA BID #1 btl 01/20/19 Allergies Allergy/AdvReac Type Severity Reaction Status Date / Time Sulfa (Sulfonamide Allergy Unknown PT UNSURE Unverified 01/24/19 13:37 Antibiotics) OF REACTION [SULFA (SULFONAMIDE ANTIBIOTICS)] acetaminophen [From [place]] Allergy ALTERED Unverified 01/24/19 13:37 MENTAL STATUS hydrocodone bitartrate Allergy BEHAVIORAL Unverified 01/24/19 13:37 [From [place]] CHANGES Travel Screening - Travel/Exposure Within Last 30 Days Have you traveled within the last 30 days?: No - Travel Symptoms Symptom Screening: None Review of Systems Constitutional: Reports: Malaise, Weakness. Denies: Chills, Fever Eyes: Denies: Eye discharge, Eye pain ENT: Denies: Congestion, Ear pain, Epistaxis Respiratory: Denies: Cough, Dyspnea Cardiovascular: Denies: Chest pain, Dyspnea on exertion Endocrine: Reports: Fatigue. Denies: Heat or cold intolerance Gastrointestinal: Denies: Abdominal pain, Nausea, Vomiting Genitourinary: Denies: Incontinence, Retention Musculoskeletal: Denies: Arthralgia, Back pain, Gout, Joint swelling Skin: Denies: Bruising, Change in color Neurological: Reports: Headache. Denies: Abnormal gait, Confusion, Seizure Psychiatric: Denies: Anxiety Hematological/Lymphatic: Denies: Anemia, Blood Clots Past Medical History - SOCIAL HISTORY Smoking Status: Former smoker Drug Use: None - RESPIRATORY Hx Sleep Apnea: Yes Hx of CPAP: Yes - CARDIOVASCULAR Hx Edema: Yes - NEURO Hx Neuro Disorders: No - GI Hx of Polyps: Yes - Hx Kidney Stones: Yes - ENDOCRINE Hx Endocrine Disorders: No Hx Diabetes: No Hx Thyroid Disease: No - MUSCULOSKELETAL Hx Musculoskeletal Disorders: Yes Hx Arthritis: Yes (bilateral shoulders) - PSYCH Hx Depression: Yes - HEMATOLOGY/ONCOLOGY Hx Hematology/Oncology Disorders: No Family Medical History Hx Cancer: Mother, Brother/Sister, Brother/Sister Hx Liver Disease: Mother Physical Exam - General General Appearance: Alert, Oriented x3, Cooperative, Moderate distress Limitations: No limitations - Head Head exam: Atraumatic, Normocephalic, Normal inspection Head exam detail: negative: Abrasion, Contusion, Connell's sign, General tenderness, Hematoma, Laceration - Eye Eye exam: Normal appearance. negative: Conjunctival injection, Periorbital swelling, Periorbital tenderness, Scleral icterus - ENT Ear exam: negative: Auricular hematoma, Auricular trauma Nasal Exam: negative: Active bleeding, Discharge, Dried blood, Foreign body Mouth exam: negative: Drooling, Laceration, Tongue elevation - Neck Neck exam: Normal inspection. negative: Meningismus, Tenderness - Respiratory Respiratory exam: Normal lung sounds bilaterally. negative: Rales, Respiratory distress, Rhonchi, Stridor - Cardiovascular Cardiovascular Exam: Regular rate, Normal rhythm, Normal heart sounds - GI/Abdominal GI/Abdominal exam: Soft. negative: Rebound, Rigid, Tenderness - Rectal Rectal exam: Deferred - exam: Deferred - Extremities Extremities exam: Normal inspection. negative: Pedal edema, Tenderness - Back Back exam: Denies: CVA tenderness (R), CVA tenderness (L) - Neurological Neurological exam: Alert, Normal gait, Oriented X3 - Psychiatric Psychiatric exam: Normal affect, Normal mood - Skin Skin exam: Normal color. negative: Abrasion Type of lesion: negative: abrasion Course Vital Signs 02/04/19 18:53 Pulse Rate 91 H Respiratory 24 Rate Blood Pressure 84/55 Pulse Ox 93 L - Reevaluation(s) Reevaluation #1: 02/04/19 19:07 EKG: NSR 96 RBBB, normal R-R intervals ST changes V2-V4 Significant changes from 07/03/18 Reevaluation #2: 02/04/19 19:24 Initial laboratory studies were reviewed, WBC 22K. Nursing staff establishing 2nd IV BP 100/62 at this time. Reevaluation #3: 02/04/19 19:42 Patient's Troponin resulted 0.032, ASA ordered for elevated troponin and new EKG changes, presumable from hypotension that is improving. 2nd Liter NS bolus infusing Patient is attempting to urinate at this time. Lactic acid resulted to be 2.0. Reevaluation #4: 02/04/19 20:04 Influenza appears negative Repeat Vitals: 107/86 78 98.6 Patient is going for imaging at this time. Reevaluation #5: 02/04/19 20:33 Preliminary review of the patient's imaging: CT Head: Chronic changes, nothing acute UA pending at this time, will initiate treatment for sepsis with Zosyn at this time pending CXR and UA result. 02/04/19 20:44 CXR: Likely small left retrocardiac infiltrate Severe emphysema Zosyn is infusing at this time. Will initiate transfer for SDU admission to [facility] at this time. 02/04/19 20:49 Case was discussed with Dr. Enciso, will accept transfer at this time. Repeat EKG now that patient's BP improved: NSR 77 Normal intervals, RBBB ST depression V2-V4 improved. 02/04/19 22:22 UA obtained and reviewed, appears negative for infection. Medical Decision Making - Lab Data Result diagrams: 02/04/19 19:05 02/04/19 19:05 Critical Care Time Critical Care Time: Yes Total Critical Care Time: 90 Critical Care Time: Diagnosis and treatment for sepsis likely from pneumonia, IVF resuscitation, laboratory study interpretation, antibiotic administration, multiple EKG interpretations, frequent reassessments and monitoring of BP, updating family members and consultation with hospitalist for transfer and admission. Disposition Disposition: Transfer Clinical Impression: Elevated troponin I level, Acute electrocardiogram changes, Weakness Sepsis Qualifiers: Sepsis type: sepsis due to unspecified organism Sepsis acute organ dysfunction status: unspecified Qualified Code(s): A41.9 - Sepsis, unspecified organism CAP (community acquired pneumonia) Qualifiers: Laterality: left Lung location: lower lobe of lung Qualified Code(s): J18.1 - Lobar pneumonia, unspecified organism Disposition: Acute Care Hospital Transfer Transfer To: [facility] Reason For Transfer: Sepsis, acute EKG changes Accepting Physician: Zaria Time Discussed w/Accepting Physician: 20:50 Condition: (2) Stable Forms: Patient Portal Access Time of Disposition: 20:49 Quality - Quality Measures Quality Measures: N/A - Blood Pressure Screening Does Patient Have Any of the Following: No Blood Pressure Classification: Normal BP Reading Systolic Measurement: 84 Diastolic Measurement: 55 Screening for High Blood Pressure: < Normal BP, F/U Not Required > [G8783]
[2019-02-04 19:15] LABS: ABSOLUTE NEUTROPHIL COUNT 19.19; BASO % 0.1 % (0-6); EOS % 0.1 % (0-6); HEMATOCRIT 47.9 % (42.0-52.0); HEMOGLOBIN 15.6 gm/dl (14.0-18.0); LYMPH % 4.4 % (16-45); MEAN CELL VOLUME 102.1 fl (81-97); MEAN CORPUSCULAR HEMOGLOBIN 33.3 pg (27-33); MEAN CORPUSCULAR HGB CONC 32.6 g/dl (32-36); MEAN PLATELET VOLUME 9.8 fl (7.4-10.4); MONO % 8.2 % (0-9); PLATELET COUNT 256 K/uL (130-400); RED BLOOD COUNT 4.69 M/uL (4.40-5.70); RED CELL DISTRIBUTION WIDTH 15.1 % (11.5-14.5)
[2019-02-04 19:25] LABS: BLOOD UREA NITROGEN 15 mg/dL (8-23); EST GLOMERULAR FILTRATION RATE > 60 mL/min
[2019-02-04 19:26] LABS: TOTAL PROTEIN 6.8 g/dL (6.6-8.7)
[2019-02-04 19:28] LABS: GLUCOSE,RANDOM 124 mg/dL (74-109)
[2019-02-04 19:30] LABS: ALT/SGPT 22 U/L (<41); AST/SGOT 21 U/L (10.0-50.0)
[2019-02-04 19:31] LABS: ALB/GLOB RATIO 1.4 (1.1-1.8); ALKALINE PHOSPHATASE 67 U/L (40-129)
[2019-02-04] MEDS ORDERED: ASPIRIN 81 MG CHEWABLE TABLET PO ONE (19:41)
[2019-02-04] MEDS ORDERED: 0.9 % SODIUM CHLORIDE 1000ML 1,000 ML IV SCH (19:45)
[2019-02-04 19:46] LABS: INFLUENZA A NEGATIVE (NEGATIVE); INFLUENZA B NEGATIVE (NEGATIVE)
[2019-02-04 19:54] LABS: PLATELET ESTIMATE NORMAL (NORMAL)
[2019-02-04 19:55] LABS: ANISOCYTOSIS 1+
[2019-02-04] MEDS ORDERED: PIPERACILLIN SODIUM/TAZOBACTAM 4.5 GM in 0.9 % SODIUM CHLORIDE 100ML 100 ML IVPB ONE (20:34)
--- NOTE | 2019-02-04 20:38 | RADIOLOGY REPORT ---
EXAMINATION: Two View Chest Radiographs EXAM DATE: 02/04/2019 8:31 PM TECHNIQUE: Frontal and lateral views INDICATION: Cough COMPARISON: [address] ENCOUNTER: Not applicable FINDINGS: PA and lateral views the chest show a small amount of left retrocardiac opacity suspicious for pneumo gunjan. Right lung is clear. There is no pleural effusion or pneumothorax. The cardiac silhouette and pu lmonary vascularity appear normal. There is severe pulmonary emphysema and sternal wire sutures are i ntact. IMPRESSION: 1. Likely small left retrocardiac infiltrate. Radiographic follow-up is recommended after completion of antibiotic treatment to ensure resolution. 2. Severe pulmonary emphysema. Dictated by: Oniel Quezada MD on 02/04/2019 8:35 PM. .
--- NOTE | 2019-02-04 20:41 | CT SCAN REPORT ---
EXAMINATION: HEAD WO CONTRAST EXAM DATE: 02/04/2019 8:32 PM TECHNIQUE: Noncontrast axial images were obtained to the brain. INDICATION: headache COMPARISON: None. ENCOUNTER: Not applicable. HAND DOMINANCE: Unknown FINDINGS: Low-attenuation areas in the periventricular and subcortical white matter. The brain parenchyma is o therwise unremarkable. No loss of bearden-white matter differentiation or sulcal effacement to indicate acute infarction. No evidence of intracranial mass. There is mild enlargement consistent with age of the ventricles, sulci, and subarachnoid spaces. No h ydrocephalus. There is arterial calcification. No intra-axial or extra-axial fluid collection. No evidence of intracranial hemorrhage. The paranasal sinuses, mastoid air cells, and orbits are unremarkable. The calvarium is intact. IMPRESSION: 1. No CT evidence of intracranial hemorrhage or acute intracranial abnormality. 2. Mild white matter hypoattenuation most commonly represents chronic microvascular ischemic diseas e. Dictated by: CAMILA LOZANO MD on 02/04/2019 8:33 PM. .
[2019-02-04 22:17] LABS: URINE APPEARANCE CLEAR; URINE BILIRUBIN NEGATIVE (NEGATIVE); URINE BLOOD NEGATIVE (NEGATIVE); URINE COLOR YELLOW; URINE GLUCOSE (UA) NEGATIVE (NEGATIVE); URINE KETONE TRACE (NEGATIVE); URINE LEUKOCYTE ESTERASE NEGATIVE (NEGATIVE); URINE NITRITE NEGATIVE (NEGATIVE); URINE PROTEIN NEGATIVE (NEGATIVE); URINE UROBILINOGEN 0.2 E.U./dL (0.20 - 1.00)
== END 2019-02-04 22:25 | disposition short-term general hospital (02) ==
LOC: ER 18:45
DX: A41.9 Sepsis, unspecified organism (principal); J18.1 Lobar pneumonia, unspecified organism; R79.89 Other specified abnormal findings of blood chemistry; R53.1 Weakness; R94.31 Abnormal electrocardiogram [ECG] [EKG]; Z87.891 Personal history of nicotine dependence
CPT/HCPCS: 70450; 71046; 80053; 81003; 83605; 84484; 85027; 87400; 93005; 93010; 96361; 96365; 99291; 99292; J2543; J7030

== ENCOUNTER 2019-02-07 14:28 | Inpatient (IN) | payer MEDICARE ==
[~2019-02-07 14:28] MED LIST: HYDROCODONE/APAP 7.5/325MG TABLET PO PRN; IPRATROPIUM/ALBUTEROL (0.5MG/3MG) NEB INH PRN
[2019-02-07] MEDS ORDERED: STOOL SOFTNER MC PRN (19:13)
[2019-02-07] MEDS: FLUTICASONE EACH NARES SCH (23:11)
[2019-02-07] MEDS: MELATONIN MC SCH (23:11)
[2019-02-07] MEDS: PRESERVISION MC SCH (23:12)
[2019-02-07] MEDS: CEFDINIR 300 MG CAPSULE PO SCH (23:13)
[2019-02-07] MEDS: DOXYCYCLINE HYCLATE 100 MG CAPSULE PO SCH (23:15)
[2019-02-08] MEDS: DOXYCYCLINE HYCLATE 100 MG CAPSULE PO SCH ×2 (09:17→21:17)
[2019-02-08] MEDS: CEFDINIR 300 MG CAPSULE PO SCH ×2 (09:17→21:19)
[2019-02-08] MEDS: ENOXAPARIN 40 MG/0.4 ML SYR SQ SCH (09:18)
[2019-02-08] MEDS: ASPIRIN 81 MG TABEC PO SCH (09:18)
[2019-02-08] MEDS: VITAMIN C MC SCH (09:19)
[2019-02-08] MEDS: FLUTICASONE EACH NARES SCH ×2 (09:20→21:19)
[2019-02-08] MEDS: VITAMIN E MC SCH (09:20)
[2019-02-08] MEDS: PRESERVISION MC SCH ×2 (09:21→21:20)
[2019-02-08] MEDS: SUPER BEETS MC SCH (09:21)
[2019-02-08] MEDS: GLUCOSAMINE COMPLEX MC SCH (09:21)
[2019-02-08] MEDS: [UNRECOGNIZED DRUG - OTHER] MC SCH (09:22)
[2019-02-08] MEDS: [UNRECOGNIZED DRUG - OTHER] MC SCH (09:22)
[2019-02-08] MEDS: VITAMIN B COMPLEX MC SCH (09:23)
[2019-02-08] MEDS: VITAMIN B12 1000 MCG MC SCH (09:23)
[2019-02-08] MEDS: VITAMIN D3 1000 UNIT MC SCH (09:23)
--- NOTE | 2019-02-08 09:54 | History & Physical ---
History of Present Illness - Date Date of Service for History & Physical: 02/08/19 - History of Present Illness Admitting Diagnosis: Deconditioning due to pneumonia History of Present Illness: 88 year old male patient presents for admission to swing bed after a hospitalization at [facility] for pneumonia. Patient was admitted for 3 days for treatment of pneumonia and hypotension. Patient was found to have significant physical deconditioning upon discharge. Patient was treated with Rocephin and doxycycline and clinical improvement noted. Patient discharged with doxycycline and cefdinir. Patient's past medical history includes COPD and CAD. PCP: Dr. Anaya 02/08/19: Patient A&O x 4, sitting comfortably in chair this morning. VS stable on room air, no complaints at this time. General - Cognitive Patterns Speech: Soft Thought Process: Intact Thought Content: Normal Orientation: Oriented x3 - Communication Preferred Language?: [employer] Technical [employer] Required: No Level of Education: High School Preferred Method of Learning: Seeing, Doing, Reading Comprehension Ability: No Impairment Able to Read: Yes Able to Write: Yes Select best description of speech pattern: Clear Speech Ability to express ideas and wants: Understood Understanding verbal content: Understands - Mood and Behavior Patterns Appearance: Well Groomed Mood: Normal Attitude: Cooperative Motor Activity: Calm Affect: Appropriate - Psychosocial Well-Being Usual Living Arrangement: Children - Physical Functioning Activity Level: Up with assist x1 Turning: Self ad isaac Assistive Devices: 2 Wheel Walker Ambulation Ability: Needs Assist Bed Mobility: Independent Transfer Ability: Needs Assist Bathing Ability: Independent Personal Hygiene: Independent Dressing Ability: Needs Assist Eating (Feeding) Ability: Independent Toileting Ability: Independent Administer Own Medication: Needs Assist - Continence Bowel Pattern: Diarrhea Bladder Pattern: Incontinent Urinary Incontinence: Total - Dental Status Unable to examine: No Broken or loosely fitting full or partial dentures: Yes No natural teeth or tooth fragment(s) (edentulous): No Abnormal mouth tissue (ulcers, masses, oral lesions, etc.): No Obvious or likely cavity or broken natural teeth: No Inflamed or bleeding gums or loose natural teeth: No Mouth/facial pain, discomfort or difficulty chewing: No - Nutrition Screening Poor oral intake > 1 week: Yes Unplanned weight loss in specified time frame: No Nutrition Support via tube feedings or parenteral nutrition: No Pressure Ulcer: No Significantly underweight define as BMI <18.5 kg/m2: No Albumin <2.5mg/dL: No Persistent nausea/vomiting/diarrhea >3 days: No Difficulty chewing/swallowing/mouth sores: No Admitting Diagnosis: Yes Nutrition Risk Score: High Risk Review of Systems Reviewed: No additional complaints except as noted below Constitutional: Reports: As per HPI, Weakness. Denies: Chills, Fever, Malaise, Night sweats, Weight change Eyes: Reports: As per HPI. Denies: Eye discharge, Eye pain, Photophobia, Vision change ENT: Reports: As per HPI. Denies: Congestion, Dental pain, Ear pain, Epistaxis, Hearing loss, Throat pain Respiratory: Reports: As per HPI. Denies: Cough, Dyspnea, Hemoptysis, Stridor, Wheezes Cardiovascular: Reports: As per HPI. Denies: Arrhythmia, Chest pain, Dyspnea on exertion, Edema, Murmurs, Orthopnea, Palpitations, Paroxysmal nocturnal dyspnea, Rheumatic Fever, Syncope Endocrine: Reports: As per HPI. Denies: Fatigue, Heat or cold intolerance, Polydipsia, Polyuria Gastrointestinal: Reports: As per HPI. Denies: Abdominal pain, Constipation, Diarrhea, Hematemesis, Hematochezia, Melena, Nausea, Vomiting Genitourinary: Reports: As per HPI. Denies: Dysuria, Frequency, Hematuria, Incontinence, Retention, Testicular pain, Testicular mass, Urgency Musculoskeletal: Reports: As per HPI. Denies: Arthralgia, Back pain, Gout, Joint swelling, Myalgia, Neck pain Skin: Reports: As per HPI. Denies: Bruising, Change in color, Change in hair/nails, Lesions, Pruritus, Rash Neurological: Reports: As per HPI. Denies: Abnormal gait, Confusion, Headache, Numbness, Paresthesias, Seizure, Tingling, Tremors, Vertigo, Weakness Psychiatric: Reports: As per HPI. Denies: Anxiety, Auditory hallucinations, Depression, Homicidal thoughts, Suicidal thoughts, Visual hallucinations Hematological/Lymphatic: Reports: As per HPI. Denies: Anemia, Blood Clots, Easy bleeding, Easy bruising, Swollen glands Past Medical History - SOCIAL HISTORY Smoking Status: Former smoker Alcohol Use: None, Rare - SURGICAL HISTORY Past Surgical History: apendix. gallbladder. heart bypass X2. shoulder sx 09/2018. spinal stimulator trial. eye sx on eyelids - RESPIRATORY Hx Respiratory Disorders: Yes Hx Sleep Apnea: Yes Hx of CPAP: Yes - CARDIOVASCULAR Hx Cardio Disorders: Yes Hx Edema: Yes - NEURO Hx Neuro Disorders: No - GI Hx GI Disorders: No Hx of Polyps: Yes - Hx Genitourinary Disorders: Yes Hx Kidney Stones: Yes - ENDOCRINE Hx Endocrine Disorders: No Hx Diabetes: No Hx Thyroid Disease: No - MUSCULOSKELETAL Hx Musculoskeletal Disorders: Yes Hx Arthritis: Yes (bilateral shoulders) - PSYCH Hx Psych Problems: No Hx Depression: Yes - HEMATOLOGY/ONCOLOGY Hx Hematology/Oncology Disorders: No Family Medical History Any Significant Family History?: No Hx Cancer: Mother, Brother/Sister, Brother/Sister Hx Liver Disease: Mother H&P Meds/Allergies - Allergies Allergies: Allergies Allergy/AdvReac Type Severity Reaction Status Date / Time Sulfa (Sulfonamide Allergy Unknown PT UNSURE Unverified 01/24/19 13:37 Antibiotics) OF REACTION [SULFA (SULFONAMIDE ANTIBIOTICS)] acetaminophen [From Payette] Allergy ALTERED Unverified 01/24/19 13:37 MENTAL STATUS hydrocodone bitartrate Allergy BEHAVIORAL Unverified 01/24/19 13:37 [From Payette] CHANGES - Home Medications Previous Rx's Medication Instructions Recorded Acetaminophen [Tylenol 500Mg Tab] 1,000 mg PO Q8HR tablet 10/07/18 Aspirin Enteric-Coated [Ecotrin 81 mg PO DAILY tabec 10/07/18 (EC)] Melatonin 5 mg PO QHS tablet 10/07/18 Sennosides/Docusate Sodium [Senna 2 each PO BID PRN capsule 10/07/18 Plus] Fluticasone Propionate [Flonase] 1 spray NA BID #1 btl 01/20/19 - Active Medications Active Medications: Current Medications Hydrocodone Bitart/Acetaminophen ([place] 7.5mg/325mg) 1 each PO Q4H PRN PRN Reason: PAIN - MOD TO SEVERE (5-10) Albuterol/Ipratropium (Duoneb) 3 ml INH Q6H PRN PRN Reason: DIFFICULTY IN BREATHING Aspirin (Ecotrin (Ec)) 81 mg PO DAILY [facility] Last Admin: 02/08/19 09:18 Dose: 81 mg Documented by: Cefdinir (Cefdinir) 300 mg PO BID [facility] Last Admin: 02/08/19 09:17 Dose: 300 mg Documented by: Doxycycline Hyclate (Vibramycin) 100 mg PO BID [facility] Last Admin: 02/08/19 09:17 Dose: 100 mg Documented by: Enoxaparin Sodium (Lovenox) 40 mg SQ DAILY [facility] Last Admin: 02/08/19 09:18 Dose: 40 mg Documented by: Ibuprofen (Motrin 400mg) 800 mg PO Q8H PRN PRN Reason: PAIN - MILD (1-4) Patient Own Med: (Super Beets) 1 each MC DAILY [facility] Last Admin: 02/08/19 09:21 Dose: 1 each Documented by: Patient Own Med: Vitamin D3 1000 Units 1 each MC DAILY [facility] Last Admin: 02/08/19 09:23 Dose: 1 each Documented by: Patient Own Med: (Vitamin B12 1000mcg) 1 each MC DAILY [facility] Last Admin: 02/08/19 09:23 Dose: 1 each Documented by: Patient Own Med: Fluticasone Nasal [place] 1 each EACH NARES BID [facility] Last Admin: 02/08/19 09:20 Dose: 1 each Documented by: Patient Own Med: (Glucosamine Complex) 1 each MC DAILY [facility] Last Admin: 02/08/19 09:21 Dose: 1 each Documented by: Patient Own Med: (Melatonin) 1 each MC QHS [facility] Last Admin: 02/07/19 23:11 Dose: 1 each Documented by: Patient Own Med: (Vitamin B Complex) 1 each MC DAILY [facility] Last Admin: 02/08/19 09:23 Dose: 1 each Documented by: Patient Own Med: Systane Icaps Eye Vitamins 1 each MC DAILY [facility] Last Admin: 02/08/19 09:22 Dose: 1 each Documented by: Patient Own Med:Uric (Out By Biogevity) 1 each MC DAILY [facility] Last Admin: 02/08/19 09:22 Dose: 1 each Documented by: Patient Own Med: (Stool Softner) 1 each MC DAILY PRN PRN Reason: CONSTIPATION Patient Own Med: (Vitamin C) 1 each MC DAILY [facility] Last Admin: 02/08/19 09:19 Dose: 1 each Documented by: Patient Own Med: (Vitamin E) 1 each MC DAILY [facility] Last Admin: 02/08/19 09:20 Dose: 1 each Documented by: Patient Own Med: (Preservision) 1 each MC BID [facility] Last Admin: 02/08/19 09:21 Dose: 1 each Documented by: Physical Exam - Vital Signs Vital Signs: Vital Signs - Last 24 Hrs Temp Pulse Resp BP Pulse Ox 02/08/19 08:50 97.7 F 89 16 104/61 92 L 02/07/19 19:40 97.8 F 89 18 132/67 93 L 02/07/19 16:15 98.0 F 89 14 136/73 91 L - General General Appearance: Alert, Oriented x3, Cooperative, No acute distress - Head Head exam: Atraumatic - Eye Eye exam: Normal appearance, PERRL - ENT ENT exam: Mucous membranes moist, Normal external ear exam - Respiratory Respiratory exam: Normal lung sounds bilaterally - Cardiovascular Cardiovascular Exam: Regular rate, Normal rhythm, Normal heart sounds Peripheral Pulses: 2+: Radial (R), Radial (L), Dorsalis Pedis (R), Dorsalis Pedis (L) - GI/Abdominal GI/Abdominal exam: Soft, Normal bowel sounds. negative: Rigid, Tenderness - Rectal Rectal exam: Deferred - exam: Deferred - Extremities Extremities exam: Normal inspection. negative: Pedal edema, Tenderness - Neurological Neurological exam: Alert, Oriented X3 - Psychiatric Psychiatric exam: Normal affect, Normal mood - Skin Skin exam: Pallor Discharge Potential - Discharge Needs Patient Discharge Plan Description: Return Home Plan - Swing Bed Certification Initial Certification Due: 02/07/19 14 Day Re-Cert Due: 02/21/19 44 Day Re-Cert Due: 03/23/19 74 Day Re-Cert Due: 04/22/19 - Detailed Diagnosis and Plan (1) Physical deconditioning Current Visit: Yes Status: Acute Base Code: R53.81 - OTHER MALAISE Comment: 02/08/19: -Physical deconditioning noted following recent 3 day hospitalization for pneumonia -Fall risk protocol initiated -PT/OT to evaluate and treat (2) History of recent pneumonia Current Visit: Yes Status: Acute Base Code: Z87.01 - PERSONAL HISTORY OF PNEUMONIA (RECURRENT) Comment: 02/08/19: -Admitted to [facility] 02/04-02/07 for treatment of pneumonia -Treated with Rocephin and Doxycycline in the hospital -Continue Doxycycline 100mg BID and Cefdinir 300mg BID for 4 more days (3) DVT prophylaxis Current Visit: No Status: Acute Base Code: Z29.9 - ENCOUNTER FOR PROPHYLACTIC MEASURES, UNSPECIFIED Comment: 02/08/19: -Pt is high risk for DVT based on age and decreased mobility -Lovenox 40mg SQ daily (4) Full code status Current Visit: No Status: Acute Base Code: Z78.9 - OTHER SPECIFIED HEALTH STATUS Comment: 02/08/19: -Patient is a full code
--- NOTE | 2019-02-08 09:55 | Swing Bed Certification/Recert ---
Initial Certification Due: 02/07/19 14 Day Re-Cert Due: 02/21/19 44 Day Re-Cert Due: 03/23/19 74 Day Re-Cert Due: 04/22/19 CERTIFICATION CERTIFICATION OF PATIENT ADMISSION Required at time of admission. Due: 02/07/19 I certify that SNF services are required to be given on an inpatient basis because of the above named patient's need for senior care care on a continui ng basis for the condition(s) for which he/she was receiving inpatient hospital services prior to his/her transfer to the SNF. The patient's current needs for skilled care includes: [physical deconditioning, age, recent hospitalization for pneumonia] Susanne Reyna, N.P. 02/08/19
[2019-02-08] MEDS ORDERED: PATIENT OWN MED: MC SCH (10:00)
[2019-02-08] MEDS ORDERED: CHOLECALCIFEROL 1,000 UNIT TABLET PO SCH (10:00)
[2019-02-08] MEDS: IBUPROFEN 400 MG TABLET PO PRN (16:37)
[2019-02-08] MEDS: MELATONIN MC SCH (21:19)
[2019-02-09] MEDS: CEFDINIR 300 MG CAPSULE PO SCH ×2 (09:05→21:31)
[2019-02-09] MEDS: ASPIRIN 81 MG TABEC PO SCH (09:06)
[2019-02-09] MEDS: ENOXAPARIN 40 MG/0.4 ML SYR SQ SCH (09:06)
[2019-02-09] MEDS: FLUTICASONE EACH NARES SCH ×2 (09:07→21:19)
[2019-02-09] MEDS: VITAMIN E MC SCH (09:07)
[2019-02-09] MEDS: VITAMIN C MC SCH (09:07)
[2019-02-09] MEDS: PRESERVISION MC SCH ×2 (09:08→21:19)
[2019-02-09] MEDS: GLUCOSAMINE COMPLEX MC SCH (09:08)
[2019-02-09] MEDS: [UNRECOGNIZED DRUG - OTHER] MC SCH (09:10)
[2019-02-09] MEDS: SUPER BEETS MC SCH (09:10)
[2019-02-09] MEDS: [UNRECOGNIZED DRUG - OTHER] MC SCH (09:10)
[2019-02-09] MEDS: VITAMIN B12 1000 MCG MC SCH (09:11)
[2019-02-09] MEDS: VITAMIN B COMPLEX MC SCH (09:11)
[2019-02-09] MEDS: DOXYCYCLINE HYCLATE 100 MG CAPSULE PO SCH ×2 (09:12→21:18)
[2019-02-09] MEDS: VITAMIN D3 1000 UNIT MC SCH (09:12)
[2019-02-09] MEDS: IBUPROFEN 400 MG TABLET PO PRN (13:13)
[2019-02-09] MEDS: MELATONIN MC SCH (21:19)
--- NOTE | 2019-02-10 09:36 | Rehab Evaluation ---
Patient Information - Patient Information Diagnosis: Deconditioning due to Pneumonia Ordered Treatment: PT Evaluate and Treat Status: Initial Evaluation Surgery: No History: Detail (Patient was admitted to a swing bed on 02/07/19 after a bout of pneumonia.) Past Medical/Surgical Hx: PAST MEDICAL/SURGICAL HISTORY Past Surgical History apendix gallbladder heart bypass X2 shoulder sx 09/2018 spinal stimulator trial eye sx on eyelids PMH - Respiratory Hx Respiratory Disorders Yes Hx Chronic Obstructive Yes Pulmonary Disease (COPD) Hx Sleep Apnea Yes Hx of CPAP Yes PMH - Cardiovascular Hx Cardiovascular Disorders Yes Hx Abnormal EKG Yes Hx Cardiac Catheterization Yes Hx Edema Yes Hx Heart Attack Yes Hx Irregular Heartbeat Yes PMH - Neuro Hx Neurological Disorders No PMH - GI Hx Gastrointestinal Disorders No PMH - Hx Genitourinary Disorders Yes Hx Bladder Problem Yes: prostate surgery Hx Kidney Stones Yes Hx Prostate Problems Yes Comment: No control after surgery PMH - Endocrine Hx Endocrine Disorders No Hx Diabetes No Hx Thyroid Disease No PMH - Musculoskeletal Hx Musculoskeletal Disorders Yes Hx Arthritis Yes: bilateral shoulders PMH - Psych Hx Psychiatric Problems No Hx Depression Yes PMH - Hematology/Oncology Hx Hematology/Oncology No Disorders Premorbid Status: Detail (Patient reports that he only used his cane a little before being admitted to the hospital, and that he was able to walk to his mailbox. He said he was able to walk in the home without an AD and he used the furniture to hang onto to maintain his balance. He stated that he lives with his daughter and son-in-law and they do the cooking, cleaning, and laundry for him. Patient reports that he stood to shower and was able to shower and dress independently.) Social History: Detail (Patient lives in a tri-level home with his daughter and son-in-law. His bedroom is on the third floor with bathrooms on the first and third floors. There are 8 steps to get to his bedroom with railings on both sides of the stairs. There are 3 steps to enter the home with a railing on the R. The bathroom that the patient uses had a walk-in shower and a shower bench. There is also an elevated toilet seat with grab bars by the toilet and in the shower. The patient has a 4-wheeled walker, a quad cane, and a walking stick available to use.) Precautions: [place], Fall - Time With Patient Total Time Spent With Patient (Min): 30 Treatment Procedures: Detail (Initial evaluation; low complexity The patient was left in the bedside chair with his call light and bedside table within reach. The nursing staff was notified of his position.) Objective Data - Pain Pain Present: Yes (Pain in R shoulder) Pain Scale Used: Numeric (1 - 10) (Patient stated pain was 1/10.) - Mental Status Patient Orientation: Oriented x3 (Patient was able to correctly identify his age and birthdate, his current location, and the correct month, year, and president.) - Visual Perception Appears within normal limits for therapeutic activities - ROM Within normal limits (LE AROM is within normal limits for functional activities.) - Strength/Tone Not within normal limits (Bilateral hip flexion and abduction 4/5, bilateral hip adduction 5/5, knee flexion and extension 5/5, and ankle dorsiflexion 5/5) - Bed Mobility Independent - Transfers Needs Assist (Patient required min assist of 1 for sit to stand transfer. He was independent in stand to sit transfer.) - Balance Balance Sitting: Good (Patient was able to maintain sitting balance while putting on his socks.) Balance Standing: Fair (In standing, patient reported that he felt like he needed to hang onto something when standing without support. When given perturbations, patient presented with postural sway of 1-2 inches in all directions.) - Sensation Intact - Gait Detail (Patient ambulated 100 feet over smooth surfaces with a front wheeled walker and contact guard of 1. He ambulates with a shuffling gait pattern with a narrow ROXANNE. Patient has decreased step length bilaterally (feet do not pass each other) and gait speed.) Therapy Assessment - Therapy Assessment Detail (Patient presents with gait abnormalities, decreased LE strength, and decreased balance that make him a good candidate for inpatient therapy services. He will benefit from therapy to increase his endurance for stairs and community ambulation distances to return to his prior functional status.) Problem List - Problem List Physical Therapy Problem List: Detail (1. Gait abnormalities 2. Decreased tolerance for stairs 3. Decreased LE hip strength 4. Decreased standing balance 5. Assist needed for transfers) Goals - Goals Physical Therapy Goals: 1. Patient will be able to ambulate 200 feet with a cane or walking stick independently to be able to walk in the community safely. 2. Patient will be able to ascend and descend 8 stairs with good technique to negotiate the stairs in his home. 3. Patient will demonstrate good stability with dynamic balance tasks for increased safety with gait and other functional tasks. 4. Patient will be consistently independent with sit to stand transfers. 5. Paitent's balance will be formally assessed using the Tinetti to assess patient's fall risk. Prognosis - Prognosis Good Plan - Plan Physical Therapy Plan: Patient will be seen 1-2x a day, M-F, for gait training, stair training, therapeutic exercises and activities, and neuromuscular re- education.
--- NOTE | 2019-02-10 09:48 | Rehab Evaluation ---
Patient Information - Patient Information Diagnosis: Deconditioning due to Pneumonia Ordered Treatment: OT Evaluate and Treat Status: Initial Evaluation Surgery: No History: Detail (Patient was admitted to a swing bed on 02/07/19 after a bout of pneumonia.) Past Medical/Surgical Hx: PAST MEDICAL/SURGICAL HISTORY Past Surgical History apendix gallbladder heart bypass X2 shoulder sx 09/2018 spinal stimulator trial eye sx on eyelids PMH - Respiratory Hx Respiratory Disorders Yes Hx Chronic Obstructive Yes Pulmonary Disease (COPD) Hx Sleep Apnea Yes Hx of CPAP Yes PMH - Cardiovascular Hx Cardiovascular Disorders Yes Hx Abnormal EKG Yes Hx Cardiac Catheterization Yes Hx Edema Yes Hx Heart Attack Yes Hx Irregular Heartbeat Yes PMH - Neuro Hx Neurological Disorders No PMH - GI Hx Gastrointestinal Disorders No PMH - Hx Genitourinary Disorders Yes Hx Bladder Problem Yes: prostate surgery Hx Kidney Stones Yes Hx Prostate Problems Yes Comment: No control after surgery PMH - Endocrine Hx Endocrine Disorders No Hx Diabetes No Hx Thyroid Disease No PMH - Musculoskeletal Hx Musculoskeletal Disorders Yes Hx Arthritis Yes: bilateral shoulders PMH - Psych Hx Psychiatric Problems No Hx Depression Yes PMH - Hematology/Oncology Hx Hematology/Oncology No Disorders Premorbid Status: Detail (Patient reports that he only used his cane a little before being admitted to the hospital, and that he was able to walk to his mailbox. He said he was able to walk in the home without an AD and he used the furniture to hang onto to maintain his balance. He stated that he lives with his daughter and son-in-law and they do the cooking, cleaning, and laundry for him. Patient reports that he stood to shower and was able to shower and dress independently.) Social History: Detail (Patient lives in a tri-level home with his daughter and son-in-law. His bedroom is on the third floor with bathrooms on the first and third floors. There are 8 steps to get to his bedroom with railings on both sides of the stairs. There are 3 steps to enter the home with a railing on the R. The bathroom that the patient uses had a walk-in shower and a shower bench. There is also an elevated toilet seat with grab bars by the toilet and in the shower. The patient has a 4-wheeled walker, a quad cane, and a walking stick available to use.) Precautions: [place], Fall - Time With Patient Total Time Spent With Patient (Min): 35 Treatment Procedures: Detail (OT eval low complexity) Subjective Information - Subjective Information Per Patient Objective Data - Pain Pain Present: Yes (1/10 in hernandez shoulders right worse than left) - Mental Status Patient Orientation: Oriented x3 - Visual Perception Appears within normal limits for therapeutic activities (Pt wears glasses) - ROM Not within normal limits (Hernandez shoulder flexion limited to approx. 80 degrees, right elbow flexion and extension limited due to premorbid injury. Left elbow WNL. Hernandez wrist and hand AROM WNL.) - Strength/Tone Not within normal limits (Hernandez shoulder flexion 3+/5 within AROM limitations, hernandez elbow flexion and extension 4/5, hernandez fusing line inspector 4/5. Pt easily fatigued with evaluation activities.) - Coordination Appears within normal limits for therapeutic activities - Transfers Needs Assist (Min assist x 1 for sit to stand from recliner and toilet heights.) - Balance Balance Sitting: Good Balance Standing: Fair - Sensation Intact - Gait Detail (Pt ambulating in hallway with 2 wheeled walker and CG assist.) - ADL's/IADL's Detail (Pt reports nursing has been assisting him with self cares and toileting. He was able to don hernandez socks and slip on shoes with min assist although he had significant difficulty.) Therapy Assessment - Therapy Assessment Detail (Pt presents with decreased Ind with self cares, decreased UE strength/ROM and decreased endurance needed for safe and Ind ADLs/mobility.) Problem List - Problem List Occupational Therapy Problem List: Detail (1. Decreased Ind with total body dressing. 2. Decreased Ind with showering. 3. Decreased UE strength and overall endurance needed for safe and Ind self cares.) Goals - Goals Occupational Therapy Goals: 1. Pt will be Ind with total body dressing using energy conservation techniques as needed. 2. Pt will be safe and Ind with showering in sitting and standing. 3. Pt will demonstrate improved UE strength and overall endurance needed for safe and Ind ADLs. Prognosis - Prognosis Good Plan - Plan Occupational Therapy Plan: OT 2-4 times per week to address goals as above. Thank you for this referral.
[2019-02-10] MEDS: ASPIRIN 81 MG TABEC PO SCH (10:31)
[2019-02-10] MEDS: DOXYCYCLINE HYCLATE 100 MG CAPSULE PO SCH ×2 (10:31→21:55)
[2019-02-10] MEDS: CEFDINIR 300 MG CAPSULE PO SCH ×2 (10:32→21:55)
[2019-02-10] MEDS: ENOXAPARIN 40 MG/0.4 ML SYR SQ SCH (10:32)
[2019-02-10] MEDS: VITAMIN E MC SCH (10:34)
[2019-02-10] MEDS: VITAMIN C MC SCH (10:34)
[2019-02-10] MEDS: FLUTICASONE EACH NARES SCH ×2 (10:35→21:56)
[2019-02-10] MEDS: GLUCOSAMINE COMPLEX MC SCH (10:35)
[2019-02-10] MEDS: PRESERVISION MC SCH ×2 (10:36→21:57)
[2019-02-10] MEDS: SUPER BEETS MC SCH (10:39)
[2019-02-10] MEDS: [UNRECOGNIZED DRUG - OTHER] MC SCH (10:40)
[2019-02-10] MEDS: VITAMIN B COMPLEX MC SCH (10:41)
[2019-02-10] MEDS: [UNRECOGNIZED DRUG - OTHER] MC SCH (10:41)
[2019-02-10] MEDS: VITAMIN D3 1000 UNIT MC SCH (10:42)
[2019-02-10] MEDS: VITAMIN B12 1000 MCG MC SCH (10:42)
--- NOTE | 2019-02-10 15:03 | Physical Therapy Tx Note ---
Physical Therapy Tx Note - Treatment Note Tolerated: Good Total Time Spent With Patient: 15 Physical Therapy Tx Note: Detail (The patient was up in chair when PT arrived. The patient required min PA of 2 for sit to and from stand. The patient ambulated with front wheeled walker a distance of 130 feet x 1 with supervision for safety. Patient was fatigued after ambulating.) Physical Therapy Problem List: Detail (1. Gait abnormalities 2. Decreased tolerance for stairs 3. Decreased LE hip strength 4. Decreased standing balance 5. Assist needed for transfers) Physical Therapy Goals: 1. Patient will be able to ambulate 200 feet with a cane or walking stick independently to be able to walk in the community safely. 2. Patient will be able to ascend and descend 8 stairs with good technique to negotiate the stairs in his home. 3. Patient will demonstrate good stability with dynamic balance tasks for increased safety with gait and other functional tasks. 4. Patient will be consistently independent with sit to stand transfers. 5. Paitent's balance will be formally assessed using the Tinetti to assess patient's fall risk. Physical Therapy Plan: Patient will be seen 1-2x a day, M-F, for gait training, stair training, therapeutic exercises and activities, and neuromuscular re- education.
[2019-02-10] MEDS: IBUPROFEN 400 MG TABLET PO PRN (16:06)
[2019-02-10] MEDS: ACETAMINOPHEN 325 MG TAB PO PRN (21:20)
[2019-02-10] MEDS: MELATONIN MC SCH (21:56)
--- NOTE | 2019-02-11 08:13 | Occupational Therapy Tx Note ---
Occupational Therapy Tx Note - Treatment Note Tolerated: Good Total Time Spent With Patient: 40 (ADL) Occupational Therapy Treatment Note: Detail (S: Pt up in chair, reports shoulder stiffness and pain continue. 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 Pt able to doff hospital pants with min assist for sit to stand to pull down over hips. He was able to doff slipper socks and hospital pants over feet Indly. Pt able to don sweatpants over feet Indly and perform sit to stand with CG assist. Pt required min assist to pull pants over buttocks due to shoulder stiffness/weakness. Pt donned slipper socks Indly. Sit to stand and amb 12 feet to sink with 2 wheeled walker and CG assist. Pt stood for approx. 10 min and completed shaving, washing face and combing hair at sink. Pt amb back to chair with walker and CG assist. Pt left up with chair alarm in place with breakfast. A: Min assist for lower extremity dressing due to decreased shoulder function, improved mobility and overall endurance noted today.) Occupational Therapy Problem List: Detail (1. Decreased Ind with total body dressing. 2. Decreased Ind with showering. 3. Decreased UE strength and overall endurance needed for safe and Ind self cares.) Occupational Therapy Goals: 1. Pt will be Ind with total body dressing using energy conservation techniques as needed. 2. Pt will be safe and Ind with showering in sitting and standing. 3. Pt will demonstrate improved UE strength and overall endurance needed for safe and Ind ADLs. Prognosis: Good Occupational Therapy Plan: OT 2-4 times per week to address goals as above. Thank you for this referral.
[2019-02-11] MEDS: ASPIRIN 81 MG TABEC PO SCH (09:08)
[2019-02-11] MEDS: ENOXAPARIN 40 MG/0.4 ML SYR SQ SCH (09:08)
[2019-02-11] MEDS: DOXYCYCLINE HYCLATE 100 MG CAPSULE PO SCH (09:08)
[2019-02-11] MEDS: CEFDINIR 300 MG CAPSULE PO SCH (09:08)
[2019-02-11] MEDS: VITAMIN C MC SCH (09:11)
[2019-02-11] MEDS: VITAMIN E MC SCH (09:12)
[2019-02-11] MEDS: GLUCOSAMINE COMPLEX MC SCH (09:12)
[2019-02-11] MEDS: FLUTICASONE EACH NARES SCH ×2 (09:12→21:58)
[2019-02-11] MEDS: PRESERVISION MC SCH ×2 (09:13→21:58)
[2019-02-11] MEDS: SUPER BEETS MC SCH (09:14)
[2019-02-11] MEDS: [UNRECOGNIZED DRUG - OTHER] MC SCH (09:14)
[2019-02-11] MEDS: [UNRECOGNIZED DRUG - OTHER] MC SCH (09:15)
[2019-02-11] MEDS: VITAMIN B COMPLEX MC SCH (09:15)
[2019-02-11] MEDS: VITAMIN B12 1000 MCG MC SCH (09:16)
[2019-02-11] MEDS: VITAMIN D3 1000 UNIT MC SCH (09:16)
[2019-02-11] MEDS: [UNRECOGNIZED DRUG - OTHER] PO SCH (10:20)
--- NOTE | 2019-02-11 11:54 | Physical Therapy Tx Note ---
Physical Therapy Tx Note - Treatment Note Tolerated: Good Total Time Spent With Patient: 25 Physical Therapy Tx Note: Detail (The patient was up in recliner when PT arrived. The patient was able to acheive sit to stand independently. The patient ambulated with front wheeled walker a distance of 100 feet x 1 with supervision for safety and verbal cues to take big steps. The patient ambulated on 3 steps with use of railing and his cane with CG/supervision of one for safety. The patient declined to ambulate on a flight of stairs due to fatigue. The patient completed the following exercises: sit to and from stand x 3 reps. without use of arms from recliner, squats in standing and marches all x 10 reps, standing balance with wide and narrow base. The patient was fatigued after 25 minutes. The patient is progressing well. Will try a flight of 3 then 7 steps tomorrow.) Physical Therapy Problem List: Detail (1. Gait abnormalities 2. Decreased tolerance for stairs 3. Decreased LE hip strength 4. Decreased standing balance 5. Assist needed for transfers) Physical Therapy Goals: 1. Patient will be able to ambulate 200 feet with a cane or walking stick independently to be able to walk in the community safely. 2. Patient will be able to ascend and descend 8 stairs with good technique to negotiate the stairs in his home. 3. Patient will demonstrate good stability with dynamic balance tasks for increased safety with gait and other functional tasks. 4. Patient will be consistently independent with sit to stand transfers. 5. Paitent's balance will be formally assessed using the Tinetti to assess patient's fall risk. Physical Therapy Plan: Patient will be seen 1-2x a day, M-F, for gait training, stair training, therapeutic exercises and activities, and neuromuscular re-education.
[2019-02-11] MEDS: MELATONIN MC SCH (21:58)
[2019-02-12] MEDS: ENOXAPARIN 40 MG/0.4 ML SYR SQ SCH (10:06)
[2019-02-12] MEDS: ASPIRIN 81 MG TABEC PO SCH (10:06)
[2019-02-12] MEDS: [UNRECOGNIZED DRUG - OTHER] PO SCH (10:08)
[2019-02-12] MEDS: VITAMIN E MC SCH (10:09)
[2019-02-12] MEDS: VITAMIN C MC SCH (10:09)
[2019-02-12] MEDS: FLUTICASONE EACH NARES SCH ×2 (10:09→21:31)
[2019-02-12] MEDS: GLUCOSAMINE COMPLEX MC SCH (10:10)
[2019-02-12] MEDS: PRESERVISION MC SCH ×2 (10:10→21:31)
[2019-02-12] MEDS: [UNRECOGNIZED DRUG - OTHER] MC SCH (10:12)
[2019-02-12] MEDS: [UNRECOGNIZED DRUG - OTHER] MC SCH (10:12)
[2019-02-12] MEDS: SUPER BEETS MC SCH (10:12)
[2019-02-12] MEDS: VITAMIN B COMPLEX MC SCH (10:13)
[2019-02-12] MEDS: VITAMIN B12 1000 MCG MC SCH (10:13)
[2019-02-12] MEDS: VITAMIN D3 1000 UNIT MC SCH (10:15)
--- NOTE | 2019-02-12 12:04 | Physical Therapy Tx Note ---
Physical Therapy Tx Note - Treatment Note Tolerated: Good Total Time Spent With Patient: 30 Physical Therapy Tx Note: Detail (To stand from the recliner, the patient was independent in the sit to stand transfer. Patient ambulated 80 feet using a 4- wheeled walker independently with a shuffling gait pattern. He was wheeled to the stairwell due to the patient feeling fatigued. To rise from the WC he required mod assist of 1. He was able to ascend and descend 3 stairs with supervision and using 2 handrails. Patient requested to not complete more stairs due to feeling tired. Using the bathroom, he maintained good standing and sitting balance while donning and doffing his pants and briefs to use the bathroom. He required min assist of 1 to stand from the toilet. The patient was left in the recliner with his call light and bedside table within reach, and the chair alarm set. The nursing staff was notified of his position.) Physical Therapy Problem List: Detail (1. Gait abnormalities 2. Decreased tolerance for stairs 3. Decreased LE hip strength 4. Decreased standing balance 5. Assist needed for transfers) Physical Therapy Goals: 1. Patient will be able to ambulate 200 feet with a cane or walking stick independently to be able to walk in the community safely. 2. Patient will be able to ascend and descend 8 stairs with good technique to negotiate the stairs in his home. 3. Patient will demonstrate good stability with dynamic balance tasks for increased safety with gait and other functional tasks. 4. Patient will be consistently independent with sit to stand transfers. 5. Paitent's balance will be formally assessed using the Tinetti to assess patient's fall risk. Physical Therapy Plan: Patient will be seen 1-2x a day, M-F, for gait training, stair training, therapeutic exercises and activities, and neuromuscular re- education.
[2019-02-12] MEDS: IBUPROFEN 400 MG TABLET PO PRN (13:08)
--- NOTE | 2019-02-12 13:28 | Occupational Therapy Tx Note ---
Occupational Therapy Tx Note - Treatment Note Occupational Therapy Treatment Note: Detail (Pt reports he is feeling very fatigued and is getting a headache this afternoon and he does not feel up to OT session today.) Occupational Therapy Problem List: Detail (1. Decreased Ind with total body dr essing. 2. Decreased Ind with showering. 3. Decreased UE strength and overall endurance needed for safe and Ind self cares.) Occupational Therapy Goals: 1. Pt will be Ind with total body dressing using energy conservation techniques as needed. 2. Pt will be safe and Ind with showering in sitting and standing. 3. Pt will demonstrate improved UE strength and overall endurance needed for safe and Ind ADLs. Occupational Therapy Plan: OT 2-4 times per week to address goals as above. Thank you for this referral.
[2019-02-12] MEDS: SOLIFENACIN 5 MG PO SCH (15:07)
[2019-02-12] MEDS: MELATONIN MC SCH (21:31)
[2019-02-13 06:34] LABS: ABSOLUTE NEUTROPHIL COUNT 8.19; BASO % 0.5 % (0-6); EOS % 2.4 % (0-6); GRAN % 76.2 % (47-80); HEMATOCRIT 45.3 % (42.0-52.0); HEMOGLOBIN 14.7 gm/dl (14.0-18.0); LYMPH % 11.4 % (16-45); MEAN CORPUSCULAR HEMOGLOBIN 33.4 pg (27-33); MEAN CORPUSCULAR HGB CONC 32.5 g/dl (32-36); MEAN PLATELET VOLUME 10.2 fl (7.4-10.4); MONO % 9.5 % (0-9); PLATELET COUNT 214 K/uL (130-400); RED CELL DISTRIBUTION WIDTH 14.6 % (11.5-14.5); WHITE BLOOD COUNT W/O DIFF 10.7 K/uL (4.2-12.2)
[2019-02-13] MEDS: ENOXAPARIN 40 MG/0.4 ML SYR SQ SCH (09:32)
[2019-02-13] MEDS: ASPIRIN 81 MG TABEC PO SCH (09:32)
[2019-02-13] MEDS: VITAMIN C MC SCH (09:35)
[2019-02-13] MEDS: VITAMIN E MC SCH (09:36)
[2019-02-13] MEDS: GLUCOSAMINE COMPLEX MC SCH (09:36)
[2019-02-13] MEDS: [UNRECOGNIZED DRUG - OTHER] MC SCH (09:37)
[2019-02-13] MEDS: PRESERVISION MC SCH ×2 (09:37→21:57)
[2019-02-13] MEDS: [UNRECOGNIZED DRUG - OTHER] MC SCH (09:37)
[2019-02-13] MEDS: VITAMIN B12 1000 MCG MC SCH (09:38)
[2019-02-13] MEDS: VITAMIN B COMPLEX MC SCH (09:38)
[2019-02-13] MEDS: VITAMIN D3 1000 UNIT MC SCH (09:39)
[2019-02-13] MEDS: FLUTICASONE EACH NARES SCH ×2 (09:40→21:56)
[2019-02-13] MEDS: SOLIFENACIN 5 MG PO SCH (09:40)
[2019-02-13] MEDS: SUPER BEETS MC SCH (09:42)
[2019-02-13] MEDS: [UNRECOGNIZED DRUG - OTHER] PO SCH (09:44)
--- NOTE | 2019-02-13 11:34 | Physical Therapy Tx Note ---
Physical Therapy Tx Note - Treatment Note Tolerated: Fair Total Time Spent With Patient: 25 Physical Therapy Tx Note: Detail (Patient was reclined in chair sleeping upon [employer] arrival. Patient states his tired this morning, but feeling alright. Patient transferred sit to and from stand CGA x1. Patient ambulated 11 feet with wheeled walker CGA x1. Patient required min assist to doff and sussy pants and brief. Patient transferred sit to and from stand x3 CGA. Patient ambulated 118 feet with wheeled walker CGA x1. Patient descended and ascended 3 steps with using stairwell railing CGA x1. Patient ambulated 8 feet with wheeled walker CGA x1. Patient tolerated treatment well. Patient reports feeling tired after treatment. Patient was left reclined in chair with call light within reach.) Physical Therapy Problem List: Detail (1. Gait abnormalities 2. Decreased tolerance for stairs 3. Decreased LE hip strength 4. Decreased standing balance 5. Assist needed for transfers) Physical Therapy Goals: 1. Patient will be able to ambulate 200 feet with a cane or walking stick independently to be able to walk in the community safely. 2. Patient will be able to ascend and descend 8 stairs with good technique to negotiate the stairs in his home. 3. Patient will demonstrate good stability with dynamic balance tasks for increased safety with gait and other functional tasks. 4. Patient will be consistently independent with sit to stand transfers. 5. Paitent's balance will be formally assessed using the Tinetti to assess patient's fall risk. Prognosis: Good Physical Therapy Plan: Patient will be seen 1-2x a day, M-F, for gait training, stair training, therapeutic exercises and activities, and neuromuscular re- education.
--- NOTE | 2019-02-13 13:56 | Physical Therapy Tx Note ---
Physical Therapy Tx Note - Treatment Note Tolerated: Good Total Time Spent With Patient: 35 Physical Therapy Tx Note: Detail (Patient was reclined in chair upon [employer] arrival. Patient transferred sit to and from stand min assist x1. Patient performed the following exercises x10 reps each: heel raises, marching, and squats. Patient transferred sit to and from stand x5 with min/CGA x1. Patient transferred sit to and from stand with min/CGA x1. Patient performed the following balance exercises x15 seconds each: DLS, DLS with eyes closed, and DLS with pertubations. Patient ambulated 10 feet with wheeled walker CGA x1. Patient transferred sit to and from stand x2 CGA x1. Patient required min assist to doff and sussy pants and brief. Patient ambulated 10 feet with wheeled walker CGA x1. Patient declined further standing exercises due to fatigue. Patient performed the following seated exercises x10 reps each: heel/toe raises, LAQ, isometric hamstring sets, adductor squeezes, and isometric hip abduction. Patient tolerated treatment well. Patient declined futher exercises due to fatigue. Patient was left reclined in chair with call light within reach.) Physical Therapy Problem List: Detail (1. Gait abnormalities 2. Decreased tolerance for stairs 3. Decreased LE hip strength 4. Decreased standing balance 5. Assist needed for transfers) Physical Therapy Goals: 1. Patient will be able to ambulate 200 feet with a cane or walking stick independently to be able to walk in the community safely. 2. Patient will be able to ascend and descend 8 stairs with good technique to negotiate the stairs in his home. 3. Patient will demonstrate good stability with dynamic balance tasks for increased safety with gait and other functional tasks. 4. Patient will be consistently independent with sit to stand transfers. 5. Paitent's balance will be formally assessed using the Tinetti to assess patient's fall risk. Prognosis: Good Physical Therapy Plan: Patient will be seen 1-2x a day, M-F, for gait training, stair training, therapeutic exercises and activities, and neuromuscular re- education.
[2019-02-13] MEDS: MELATONIN MC SCH (21:56)
[2019-02-13] MEDS: IBUPROFEN 400 MG TABLET PO PRN (22:01)
--- NOTE | 2019-02-14 08:17 | Occupational Therapy Tx Note ---
Occupational Therapy Tx Note - Treatment Note Tolerated: Good Total Time Spent With Patient: 50 (ADL) Occupational Therapy Treatment Note: Detail (S: Pt resting in bed, agreeable to OT. O: Supine to sit Indly with use of bedrails. Sit to stand and amb to toilet with 2 wheeled walker and SBA. Pt doffed PJ bottoms and briefs over hips Indly while holding grab bar and he was seated on toilet Indly. Pt doffed PJ bottoms, briefs and slipper socks over feet Indly. Pt doffed t-shirt Indly. Sit to stand from toilet with grab bar and min assist to stabilize walker. Pt amb to shower with CG assist and he was seated with use of grab bar Indly. Pt completed showering in sitting and standing with use of grab bar and SBA for standing as well as with assist to wash back. Pt able to dry self with assist for back. Pt sit to stand Ind with grab bar and amb to chair with walker and SBA. Pt able to don undershirt and t-shirt with moderate difficulty to pullman clerk head and with min assist to pull down in back due to decreased shoulder motion. He donned briefs, PJ bottoms and slipper socks with moderate difficulty to start over feet and with min assist to pullman clerk buttocks due to decreased shoulder motion. Pt left up in chair with call button in reach. A: Pt requires min assist for total body dressing due to decreased shoulder motion and strength, min assist to wash back while showering, mild fatigue with shower although improving) Occupational Therapy Problem List: Detail (1. Decreased Ind with total body dressing. 2. Decreased Ind with showering. 3. Decreased UE strength and overall endurance needed for safe and Ind self cares.) Occupational Therapy Goals: 1. Pt will be Ind with total body dressing using energy conservation techniques as needed. 2. Pt will be safe and Ind with showering in sitting and standing. 3. Pt will demonstrate improved UE strength and overall endurance needed for safe and Ind ADLs. Prognosis: Good Occupational Therapy Plan: OT 2-4 times per week to address goals as above. Thank you for this referral.
--- NOTE | 2019-02-14 08:25 | Physician Progress Note ---
Subjective - Date Date of Progress Note: 02/14/19 - Admitting Diagnosis Diagnosis: Deconditioning due to pneumonia - Subjective Nursing Care Plan Problem List Activity Intolerance (Swing Bed) Start: 02/07/19 16 :49 Freq: Status: Active Protocol: Created 02/07/19 16:49 HMF (Rec: 02/07/19 16:49 HMF ASTS-1) Altered Thought Process (Fall Risk) Start: 02/07/19 16:49 Freq: Status: Active Protocol: Created 02/07/19 16:49 HMF (Rec: 02/07/19 16:49 HMF ASTS-1) Impaired Mobility (Fall Risk) Start: 02/07/19 16:49 Freq: Status: Active Protocol: Created 02/07/19 16:49 HMF (Rec: 02/07/19 16:49 HMF ASTS-1) Knowledge Deficit (Swing Bed) Start: 02/07/19 16:49 Freq: Status: Active Protocol: Created 02/07/19 16:49 HMF (Rec: 02/07/19 16:49 HMF ASTS-1) Pain (Swing Bed) Start: 02/07/19 16:49 Freq: Status: Active Protocol: Created 02/07/19 16:49 HMF (Rec: 02/07/19 16:49 HMF ASTS-1) Risk for Injury (Fall Risk) Start: 02/07/19 16:49 Freq: Status: Active Protocol: Created 02/07/19 16:49 HMF (Rec: 02/07/19 16:49 HMF ASTS-1) Subjective: The patient is awake, alert and sitting at bedside this morning. He says he feels much better but still is a bit weak. He has just completed is therapy for the morning and still requires assistance with ambulation. General - Cognitive Patterns Speech: Normal, Soft Thought Process: Intact Thought Content: Normal - Communication Select best description of speech pattern: Clear Speech Ability to express ideas and wants: Understood Understanding verbal content: Understands - Mood and Behavior Patterns Appearance: Well Groomed Mood: Normal Attitude: Cooperative Motor Activity: Calm Affect: Appropriate Hallucinations: Denies - Physical Functioning Activity Level: Up with assist x1 Turning: Self ad isaac ROM Ability: Moves all extremities Assistive Devices: 2 Wheel Walker Ambulation Ability: Needs Assist Bed Mobility: Independent Transfer Ability: Needs Assist Bathing Ability: Needs Assist Personal Hygiene: Independent Dressing Ability: Needs Assist Eating (Feeding) Ability: Independent Toileting Ability: Needs Assist Administer Own Medication: Needs Assist - Continence Bowel Pattern: Normal for Patient Bladder Pattern: Dribbling, Incontinent Urinary Incontinence: Urge Meds/Allergies - Allergies Allergies Allergy/AdvReac Type Severity Reaction Status Date / Time Sulfa (Sulfonamide Allergy Unknown PT UNSURE Unverified 01/24/19 13:37 Antibiotics) OF REACTION [SULFA (SULFONAMIDE ANTIBIOTICS)] acetaminophen [From [place]] Allergy ALTERED Unverified 01/24/19 13:37 MENTAL STATUS hydrocodone bitartrate Allergy BEHAVIORAL Unverified 01/24/19 13:37 [From [place]] CHANGES - Active Medications Current Medications Acetaminophen (Tylenol 325mg) 650 mg PO Q6H PRN PRN Reason: PAIN - MILD (1-4) Last Admin: 02/10/19 21:20 Dose: 650 mg Documented by: Hydrocodone Bitart/Acetaminophen ([place] 7.5mg/325mg) 1 each PO Q4H PRN PRN Reason: PAIN - MOD TO SEVERE (5-10) Last Admin: 02/13/19 15:38 Dose: 1 each Documented by: Albuterol/Ipratropium (Duoneb) 3 ml INH Q6H PRN PRN Reason: DIFFICULTY IN BREATHING Aspirin (Ecotrin (Ec)) 81 mg PO DAILY [facility] Last Admin: 02/13/19 09:32 Dose: 81 mg Documented by: Enoxaparin Sodium (Lovenox) 40 mg SQ DAILY [facility] Last Admin: 02/13/19 09:32 Dose: 40 mg Documented by: Ibuprofen (Motrin 400mg) 800 mg PO Q8H PRN PRN Reason: PAIN - MILD (1-4) Last Admin: 02/13/19 22:01 Dose: 800 mg Documented by: Patient Own Med: (Super Beets) 1 each MC DAILY [facility] Last Admin: 02/13/19 09:42 Dose: 1 each Documented by: Patient Own Med: Vitamin D3 1000 Units 1 each [facility] DAILY [facility] Last Admin: 02/13/19 09:39 Dose: 1 each Documented by: Patient Own Med: (Vitamin B12 1000mcg) 1 each [facility] DAILY [facility] Last Admin: 02/13/19 09:38 Dose: 1 each Documented by: Patient Own Med: Fluticasone Nasal [place] 1 each EACH NARES BID [facility] Last Admin: 02/13/19 21:56 Dose: 1 each Documented by: Patient Own Med: (Glucosamine Complex) 1 each [facility] DAILY [facility] Last Admin: 02/13/19 09:36 Dose: 1 each Documented by: Patient Own Med: (Melatonin) 1 each [facility] QHS [facility] Last Admin: 02/13/19 21:56 Dose: 1 each Documented by: Patient Own Med: (Vitamin B Complex) 1 each [facility] DAILY [facility] Last Admin: 02/13/19 09:38 Dose: 1 each Documented by: Patient Own Med: Systane Icaps Eye Vitamins 1 each [facility] DAILY [facility] Last Admin: 02/13/19 09:37 Dose: 1 each Documented by: Patient Own Med:Uric (Out By Biogevity) 1 each [facility] DAILY [facility] Last Admin: 02/13/19 09:37 Dose: 1 each Documented by: Patient Own Med: (Stool Softner) 1 each MC DAILY PRN PRN Reason: CONSTIPATION Patient Own Med: (Vitamin C) 1 each [facility] DAILY [facility] Last Admin: 02/13/19 09:35 Dose: 1 each Documented by: Patient Own Med: (Vitamin E) 1 each [facility] DAILY [facility] Last Admin: 02/13/19 09:36 Dose: 1 each Documented by: Patient Own Med: (Preservision) 1 each [facility] BID [facility] Last Admin: 02/13/19 21:57 Dose: 1 each Documented by: [place] (Support) 1 each PO DAILY [facility] Last Admin: 02/13/19 09:44 Dose: 1 each Documented by: Solifenacin 5mg 1 each PO DAILY [facility] Last Admin: 02/13/19 09:40 Dose: 1 each Documented by: Objective - Vital Signs Vital Signs: Vital Signs - Last 24 Hrs Temp Pulse Resp BP BP BP Pulse Ox 02/14/19 08:00 97.3 F L 74 18 127/67 93 L 02/13/19 20:00 98.1 F 78 18 112/57 92 L 02/13/19 14:13 106/58 - General General Appearance: Alert, Oriented x3, Cooperative, No acute distress - Head Head exam: Atraumatic - Eye Eye exam: Normal appearance, PERRL - ENT ENT exam: Mucous membranes moist, Normal external ear exam - Respiratory Respiratory exam: Normal lung sounds bilaterally - Cardiovascular Cardiovascular Exam: Regular rate, Normal rhythm, Normal heart sounds Peripheral Pulses: 2+: Radial (R), Radial (L), Dorsalis Pedis (R), Dorsalis Pedis (L) - GI/Abdominal GI/Abdominal exam: Soft, Normal bowel sounds. negative: Rigid, Tenderness - Rectal Rectal exam: Deferred - exam: Deferred - Extremities Extremities exam: Normal inspection. negative: Pedal edema, Tenderness - Neurological Neurological exam: Alert, Oriented X3 - Psychiatric Psychiatric exam: Normal affect, Normal mood - Skin Skin exam: Pallor H&P Results - Labs Result Diagrams: 02/13/19 06:20 Discharge Potential - Discharge Needs Community Services Used Prior to Admission: None Patient Discharge Plan Description: Return Home Community Services Needed at Discharge: Occupational Therapy, Physical Therapy Plan - Swing Bed Certification Initial Certification Due: 02/07/19 14 Day Re-Cert Due: 02/21/19 44 Day Re-Cert Due: 03/23/19 74 Day Re-Cert Due: 04/22/19 - Detailed Diagnosis and Plan (1) Physical deconditioning Current Visit: Yes Status: Acute Base Code: R53.81 - OTHER [place] Comment: 02/14/19: -Physical deconditioning noted following recent 3 day hospitalization for pneumo gunjan -Fall risk protocol initiated -PT/OT to evaluate and treat (2) History of recent pneumonia Current Visit: Yes Status: Acute Base Code: Z87.01 - PERSONAL HISTORY OF PNEUMONIA (RECURRENT) Comment: 02/14/19: -Admitted to [facility] 02/04-02/07 for treatment of pneumonia -Treated with Rocephin and Doxycycline in the hospital -Completed Doxycycline 100mg BID and Cefdinir 300mg BID. - WBC 10.7 (3) DVT prophylaxis Current Visit: No Status: Acute Base Code: Z29.9 - ENCOUNTER FOR ME OPHYLACTIC MEASURES, UNSPECIFIED Comment: 02/14/19: -Pt is high risk for DVT based on age and decreased mobility -Lovenox 40mg SQ daily (4) Full code status Current Visit: No Status: Acute Base Code: Z78.9 - OTHER SPECIFIED HEALTH STATUS Comment: 02/14/19: -Patient is a full code
[2019-02-14] MEDS: ASPIRIN 81 MG TABEC PO SCH (09:28)
[2019-02-14] MEDS: ENOXAPARIN 40 MG/0.4 ML SYR SQ SCH (09:30)
[2019-02-14] MEDS: PRESERVISION MC SCH ×2 (09:36→22:22)
[2019-02-14] MEDS: FLUTICASONE EACH NARES SCH ×2 (09:36→22:22)
[2019-02-14] MEDS: VITAMIN E MC SCH (09:37)
[2019-02-14] MEDS: VITAMIN C MC SCH (09:37)
[2019-02-14] MEDS: GLUCOSAMINE COMPLEX MC SCH (09:38)
[2019-02-14] MEDS: [UNRECOGNIZED DRUG - OTHER] MC SCH (09:39)
[2019-02-14] MEDS: [UNRECOGNIZED DRUG - OTHER] MC SCH (09:39)
[2019-02-14] MEDS: VITAMIN B COMPLEX MC SCH (09:39)
[2019-02-14] MEDS: VITAMIN B12 1000 MCG MC SCH (09:40)
[2019-02-14] MEDS: VITAMIN D3 1000 UNIT MC SCH (09:40)
[2019-02-14] MEDS: SOLIFENACIN 5 MG PO SCH (09:41)
[2019-02-14] MEDS: [UNRECOGNIZED DRUG - OTHER] PO SCH (09:43)
[2019-02-14] MEDS: SUPER BEETS MC SCH (09:43)
--- NOTE | 2019-02-14 13:48 | Physical Therapy Tx Note ---
Physical Therapy Tx Note - Treatment Note Tolerated: Good Total Time Spent With Patient: 25 Physical Therapy Tx Note: Detail (Patient reported that he was feeling well today. He ambulated 80 feet through the hallway using his 4-wheeled walker independently. Verbal cuing was needed during ambulation to remind patient to take longer steps and when cued pt was able to maintain the gait pattern. He completed stair training over 12 stairs, going down the stairs sideways, holding onto one railing with both hands. Pt became fatigued towards the end of stair training, and with climbing up the last 3 steps he needed min assist of 1. After stair training he was breathing heavily and rested for 3 minutes to slow his breathing. In his room he completed sit to stands x5. With sit to stands, he required two pillows to be able to stand independently. He completed mini squats 2x10, hip abduction 1x10, and hip flexion 1x10. Patient was left in the recliner with his call light and bedside table within reach. The nursing staff was notified of his position.) Physical Therapy Problem List: Detail (1. Gait abnormalities 2. Decreased tolerance for stairs 3. Decreased LE hip strength 4. Decreased standing balance 5. Assist needed for transfers) Physical Therapy Goals: 1. Patient will be able to ambulate 200 feet with a cane or walking stick independently to be able to walk in the community safely. 2. Patient will be able to ascend and descend 8 stairs with good technique to negotiate the stairs in his home. 3. Patient will demonstrate good stability with dynamic balance tasks for increased safety with gait and other functional tasks. 4. Patient will be consistently independent with sit to stand transfers. 5. Paitent's balance will be formally assessed using the Tinetti to assess patient's fall risk. Physical Therapy Plan: Patient will be seen 1-2x a day, M-F, for gait training, stair training, therapeutic exercises and activities, and neuromuscular re- education.
[2019-02-14] MEDS: ACETAMINOPHEN 325 MG TAB PO PRN (17:21)
[2019-02-14] MEDS: IBUPROFEN 400 MG TABLET PO PRN (22:21)
[2019-02-14] MEDS: MELATONIN MC SCH (22:22)
[2019-02-15] MEDS: [UNRECOGNIZED DRUG - OTHER] PO SCH (09:33)
[2019-02-15] MEDS: FLUTICASONE EACH NARES SCH ×2 (09:34→21:38)
[2019-02-15] MEDS: VITAMIN E MC SCH (09:34)
[2019-02-15] MEDS: VITAMIN C MC SCH (09:34)
[2019-02-15] MEDS: PRESERVISION MC SCH ×2 (09:35→21:38)
[2019-02-15] MEDS: GLUCOSAMINE COMPLEX MC SCH (09:35)
[2019-02-15] MEDS: SUPER BEETS MC SCH (09:36)
[2019-02-15] MEDS: [UNRECOGNIZED DRUG - OTHER] MC SCH (09:36)
[2019-02-15] MEDS: VITAMIN B COMPLEX MC SCH (09:37)
[2019-02-15] MEDS: [UNRECOGNIZED DRUG - OTHER] MC SCH (09:37)
[2019-02-15] MEDS: VITAMIN B12 1000 MCG MC SCH (09:38)
[2019-02-15] MEDS: SOLIFENACIN 5 MG PO SCH (09:38)
[2019-02-15] MEDS: VITAMIN D3 1000 UNIT MC SCH (09:38)
[2019-02-15] MEDS: ENOXAPARIN 40 MG/0.4 ML SYR SQ SCH (09:41)
[2019-02-15] MEDS: ASPIRIN 81 MG TABEC PO SCH (09:41)
[2019-02-15] MEDS: ACETAMINOPHEN 325 MG TAB PO PRN ×2 (14:08→21:40)
[2019-02-15] MEDS: IBUPROFEN 400 MG TABLET PO PRN (17:38)
[2019-02-15] MEDS: MELATONIN MC SCH (21:38)
[2019-02-16] MEDS: ASPIRIN 81 MG TABEC PO SCH (09:04)
[2019-02-16] MEDS: ENOXAPARIN 40 MG/0.4 ML SYR SQ SCH (09:04)
[2019-02-16] MEDS: [UNRECOGNIZED DRUG - OTHER] PO SCH (09:05)
[2019-02-16] MEDS: SUPER BEETS MC SCH (09:06)
[2019-02-16] MEDS: PRESERVISION MC SCH ×2 (09:07→21:25)
[2019-02-16] MEDS: VITAMIN C MC SCH (09:08)
[2019-02-16] MEDS: FLUTICASONE EACH NARES SCH ×2 (09:09→21:25)
[2019-02-16] MEDS: VITAMIN E MC SCH (09:09)
[2019-02-16] MEDS: [UNRECOGNIZED DRUG - OTHER] MC SCH (09:10)
[2019-02-16] MEDS: GLUCOSAMINE COMPLEX MC SCH (09:10)
[2019-02-16] MEDS: VITAMIN B12 1000 MCG MC SCH (09:11)
[2019-02-16] MEDS: VITAMIN B COMPLEX MC SCH (09:11)
[2019-02-16] MEDS: [UNRECOGNIZED DRUG - OTHER] MC SCH (09:11)
[2019-02-16] MEDS: VITAMIN D3 1000 UNIT MC SCH (09:12)
[2019-02-16] MEDS: SOLIFENACIN 5 MG PO SCH (09:19)
[2019-02-16] MEDS ORDERED: ZINC OXIDE 28.35 GM TUBE TOP ONE (15:20)
[2019-02-16] MEDS: IBUPROFEN 400 MG TABLET PO PRN (15:23)
[2019-02-16] MEDS: ACETAMINOPHEN 325 MG TAB PO PRN (20:02)
[2019-02-16] MEDS: MELATONIN MC SCH (21:25)
[2019-02-17] MEDS: FLUTICASONE EACH NARES SCH ×2 (09:14→22:49)
[2019-02-17] MEDS: [UNRECOGNIZED DRUG - OTHER] PO SCH (09:15)
[2019-02-17] MEDS: SUPER BEETS MC SCH (09:16)
[2019-02-17] MEDS: VITAMIN C MC SCH (09:18)
[2019-02-17] MEDS: PRESERVISION MC SCH ×2 (09:18→22:50)
[2019-02-17] MEDS: VITAMIN E MC SCH (09:19)
[2019-02-17] MEDS: GLUCOSAMINE COMPLEX MC SCH (09:19)
[2019-02-17] MEDS: [UNRECOGNIZED DRUG - OTHER] MC SCH (09:20)
[2019-02-17] MEDS: VITAMIN B COMPLEX MC SCH (09:21)
[2019-02-17] MEDS: VITAMIN B12 1000 MCG MC SCH (09:21)
[2019-02-17] MEDS: [UNRECOGNIZED DRUG - OTHER] MC SCH (09:21)
[2019-02-17] MEDS: VITAMIN D3 1000 UNIT MC SCH (09:22)
[2019-02-17] MEDS: SOLIFENACIN 5 MG PO SCH (09:22)
[2019-02-17] MEDS: ENOXAPARIN 40 MG/0.4 ML SYR SQ SCH (09:25)
[2019-02-17] MEDS: ASPIRIN 81 MG TABEC PO SCH (09:25)
[2019-02-17] MEDS: IBUPROFEN 400 MG TABLET PO PRN ×2 (09:26→22:50)
--- NOTE | 2019-02-17 10:13 | Physical Therapy Tx Note ---
Physical Therapy Tx Note - Treatment Note Tolerated: Good Total Time Spent With Patient: 30 Physical Therapy Tx Note: Detail (Patient reported that he was feeling good at the start of the treatment session today. He ambulated 100 feet independently in the hallway with a 4-wheeled walker. Patient ambulated with an increased step length without needing verbal cuing. He completed stair training over ten stairs with supervision. Today, he was able to complete all stairs without assistance and was then able to walk back to his room without needing to stop for a break. In the room he completed sit to stands x5 with minimal use of his hands when sitting and standing up. He also did the following exercises in standing: hip abuction x10, hip flexion x20, squats x15, narrow ROXANNE balance x30'', eyes closed balance x30'', and stride stance 2x30''. The patient was left in the recliner with her call light and bedside table within reach.) Physical Therapy Problem List: Detail (1. Gait abnormalities 2. Decreased tolerance for stairs 3. Decreased LE hip strength 4. Decreased standing balance 5. Assist needed for transfers) Physical Therapy Goals: 1. Patient will be able to ambulate 200 feet with a cane or walking stick independently to be able to walk in the community safely. 2. Patient will be able to ascend and descend 8 stairs with good technique to negotiate the stairs in his home. 3. Patient will demonstrate good stability with dynamic balance tasks for increased safety with gait and other functional tasks. 4. Patient will be consistently independent with sit to stand transfers. 5. Paitent's balance will be formally assessed using the Tinetti to assess patient's fall risk. Physical Therapy Plan: Patient will be seen 1-2x a day, M-F, for gait training, stair training, therapeutic exercises and activities, and neuromuscular re- education.
--- NOTE | 2019-02-17 14:44 | Occupational Therapy Tx Note ---
Occupational Therapy Tx Note - Treatment Note Tolerated: Fair Total Time Spent With Patient: 40 (ther ex) Occupational Therapy Treatment Note: Detail (S: Pt up in recliner, visiting with brother. O: Sit to stand with CG assist and transferred to wheelchair with 4 wheeled walker and CG assist. Pt transported to rehab via wheelchair. After instruction, pt completed mirza UE passive pulleys for shoulder flexion and abduction x 25 reps each to tolerance. Pt transferred to mat table with CG assist and to supine with min assist. Pt completed mirza UE cane stretches for shoulder flexion, horizontal ab/adduction and IR/ER x 15 reps each within pain free range. PROM to mirza shoulder IR to promote improve motion needed for pulling pants over hips x 5 reps with sustained stretch to patients tolerance. Supine to sit with mod assist and pivot transferred to wheelchair with CG assist. Pt transported back to room via wheelchair and transferred to recliner with min assist for sit to stand. A: Pt continues to have significant pain and stiffness in mirza shoulders, left worse than right, which limits his Ind with self cares.) Occupational Therapy Problem List: Detail (1. Decreased Ind with total body dressing. 2. Decreased Ind with showering. 3. Decreased UE strength and overall endurance needed for safe and Ind self cares.) Occupational Therapy Goals: 1. Pt will be Ind with total body dressing using energy conservation techniques as needed. 2. Pt will be safe and Ind with showering in sitting and standing. 3. Pt will demonstrate improved UE strength and overall endurance needed for safe and Ind ADLs. Prognosis: Moderate Occupational Therapy Plan: OT 2-4 times per week to address goals as above. Thank you for this referral.
[2019-02-17] MEDS: MELATONIN MC SCH (22:49)
--- NOTE | 2019-02-18 09:36 | Physical Therapy Tx Note ---
Physical Therapy Tx Note - Treatment Note Tolerated: Good Total Time Spent With Patient: 20 Physical Therapy Tx Note: Detail (Patient reported that he had some pain in his shoulders this morning. He ambulated 100 feet in the hallway with his 4-wheeled walker independently. Patient is ambulate with a normal step length at the beginning but after he completes the stairs and is more fatigued he returns to his shuffling gait pattern. He was able to ascend and descend 13 stairs with contact guard of 1. Going up the stairs he was able to do most of them reciprocally but the patient became more fatigued when doing them this way. He takes the stairs sideways, hanging onto 1 railing with both hands. He was able to complete the stairs and then walk back to his room before needing a rest. In his room he completed marching x10, sit to stands x5, hip abduction x10 in stephanie ding, narrow ROXANNE balance x30'', and squats x15. He was fatigued at the end of the session, and had increased pain in his L shoulder so the session was ended. The patient was left in the recliner with his call light and bedside table within reach.) Physical Therapy Problem List: Detail (1. Gait abnormalities 2. Decreased tolerance for stairs 3. Decreased LE hip strength 4. Decreased standing balance 5. Assist needed for transfers) Physical Therapy Goals: 1. Patient will be able to ambulate 200 feet with a cane or walking stick independently to be able to walk in the community safely. 2. Patient will be able to ascend and descend 8 stairs with good technique to negotiate the stairs in his home. 3. Patient will demonstrate good stability with dynamic balance tasks for increased safety with gait and other functional tasks. 4. Patient will be consistently independent with sit to stand transfers. 5. Paitent's balance will be formally assessed using the Tinetti to assess patient's fall risk. Physical Therapy Plan: Patient will be seen 1-2x a day, M-F, for gait training, stair training, therapeutic exercises and activities, and neuromuscular re- education.
[2019-02-18] MEDS: ASPIRIN 81 MG TABEC PO SCH (09:44)
[2019-02-18] MEDS: ENOXAPARIN 40 MG/0.4 ML SYR SQ SCH (09:44)
[2019-02-18] MEDS: VITAMIN C MC SCH (09:45)
[2019-02-18] MEDS: [UNRECOGNIZED DRUG - OTHER] PO SCH (09:46)
[2019-02-18] MEDS: VITAMIN E MC SCH (09:47)
[2019-02-18] MEDS: FLUTICASONE EACH NARES SCH ×2 (09:47→21:00)
[2019-02-18] MEDS: PRESERVISION MC SCH ×2 (09:48→21:00)
[2019-02-18] MEDS: GLUCOSAMINE COMPLEX MC SCH (09:48)
[2019-02-18] MEDS: SUPER BEETS MC SCH (09:49)
[2019-02-18] MEDS: [UNRECOGNIZED DRUG - OTHER] MC SCH (09:50)
[2019-02-18] MEDS: [UNRECOGNIZED DRUG - OTHER] MC SCH (09:50)
[2019-02-18] MEDS: VITAMIN B COMPLEX MC SCH (09:51)
[2019-02-18] MEDS: VITAMIN B12 1000 MCG MC SCH (09:51)
[2019-02-18] MEDS: VITAMIN D3 1000 UNIT MC SCH (09:52)
[2019-02-18] MEDS: SOLIFENACIN 5 MG PO SCH (09:53)
--- NOTE | 2019-02-18 15:24 | Physical Therapy Tx Note ---
Physical Therapy Tx Note - Treatment Note Total Time Spent With Patient: 45 Physical Therapy Tx Note: Detail (Patient ambulated 200 feet with his 4-wheeled walker in the hallway from his room to the stairwell. He had a good step length throughout and didn't have complaints of fatigue. In the therapy gym he did: step ups forward/back and laterally x10 each, balance on foam x30'', steps over foam x10, steps onto foam x10, lateral walking 6x4 feet, backwards walking 8x4 feet, lunges x10, sit to stands x5, single leg stance x20'', and eyes closed balance x30''. The patient needed 3 rest breaks throughout the exercise session. He was able to complete all sit to stand transfers independently. Patient was left in his recliner with his call light and bedside table within reach. The nursing staff was notfied of his position.) Physical Therapy Problem List: Detail (1. Gait abnormalities 2. Decreased tolerance for stairs 3. Decreased LE hip strength 4. Decreased standing balance 5. Assist needed for transfers) Physical Therapy Goals: 1. Patient will be able to ambulate 200 feet with a cane or walking stick independently to be able to walk in the community safely. 2. Patient will be able to ascend and descend 8 stairs with good technique to negotiate the stairs in his home. 3. Patient will demonstrate good stability with dynamic balance tasks for increased safety with gait and other functional tasks. 4. Patient will be consistently independent with sit to stand transfers. 5. Paitent's balance will be formally assessed using the Tinetti to assess patient's fall risk. Physical Therapy Plan: Patient will be seen 1-2x a day, M-F, for gait training, stair training, therapeutic exercises and activities, and neuromuscular re- education.
[2019-02-18] MEDS: ACETAMINOPHEN 325 MG TAB PO PRN (20:55)
[2019-02-18] MEDS: MELATONIN MC SCH (21:00)
[2019-02-19] MEDS ORDERED: ZINC OXIDE 28.35 GM TUBE TOP PRN (08:36)
[2019-02-19] MEDS: [UNRECOGNIZED DRUG - OTHER] PO SCH (09:00)
[2019-02-19] MEDS: VITAMIN C MC SCH (09:01)
[2019-02-19] MEDS: GLUCOSAMINE COMPLEX MC SCH (09:02)
[2019-02-19] MEDS: VITAMIN E MC SCH (09:02)
[2019-02-19] MEDS: FLUTICASONE EACH NARES SCH ×2 (09:02→21:13)
[2019-02-19] MEDS: PRESERVISION MC SCH ×2 (09:03→21:13)
[2019-02-19] MEDS: SUPER BEETS MC SCH (09:03)
[2019-02-19] MEDS: VITAMIN B COMPLEX MC SCH (09:04)
[2019-02-19] MEDS: [UNRECOGNIZED DRUG - OTHER] MC SCH (09:04)
[2019-02-19] MEDS: [UNRECOGNIZED DRUG - OTHER] MC SCH (09:04)
[2019-02-19] MEDS: SOLIFENACIN 5 MG PO SCH (09:05)
[2019-02-19] MEDS: VITAMIN B12 1000 MCG MC SCH (09:05)
[2019-02-19] MEDS: VITAMIN D3 1000 UNIT MC SCH (09:05)
[2019-02-19] MEDS: ASPIRIN 81 MG TABEC PO SCH (09:06)
[2019-02-19] MEDS: ENOXAPARIN 40 MG/0.4 ML SYR SQ SCH (09:06)
--- NOTE | 2019-02-19 13:47 | Discharge Summary ---
Providers Discharge Summary Date: 02/19/19 Date of admission: 02/07/19 16:06 Expected Date of Discharge: 02/20/19 Attending physician: TOBI ANAYA Primary care physician: TOBI AANYA Physical Exam - Vital Signs Vital Signs: Vital Signs - Last 24 Hrs Temp Pulse Resp BP Pulse Ox 02/19/19 07:42 97.9 F 79 16 126/63 97 02/18/19 20:00 98.0 F 72 20 123/63 98 - General General Appearance: Alert, Oriented x3, Cooperative, No acute distress - Head Head exam: Atraumatic - Eye Eye exam: Normal appearance, PERRL - ENT ENT exam: Mucous membranes moist, Normal external ear exam - Respiratory Respiratory exam: Normal lung sounds bilaterally - Cardiovascular Cardiovascular Exam: Regular rate, Normal rhythm, Normal heart sounds Peripheral Pulses: 2+: Radial (R), Radial (L), Dorsalis Pedis (R), Dorsalis Pedis (L) - GI/Abdominal GI/Abdominal exam: Soft, Normal bowel sounds. negative: Rigid, Tenderness - Rectal Rectal exam: Deferred - exam: Deferred - Extremities Extremities exam: Normal inspection. negative: Pedal edema, Tenderness - Neurological Neurological exam: Alert, Oriented X3 - Psychiatric Psychiatric exam: Normal affect, Normal mood Hospitalization - Hospitalization Admission Diagnosis: Deconditioning due to pneumonia - Problem List (1) Physical deconditioning Current Visit: Yes Status: Acute Base Code: R53.81 - OTHER MALAISE Comment: 02/19/19: -Physical deconditioning noted following a recent 3 day hospitalization for pne [facility] -Fall risk protocol initiated -PT/OT to evaluate and treat -Close to meeting PT/OT goals for discharge, anticipate home with outpatient therapy in the next couple days (2) History of recent pneumonia Current Visit: Yes Status: Acute Base Code: Z87.01 - PERSONAL HISTORY OF PNEUMONIA (RECURRENT) Comment: 02/19/19: -Admitted to [facility] 02/04-02/07 for treatment of pneumonia -Treated with Rocephin and Doxycycline in the hospital -Completed Doxycycline 100mg BID and Cefdinir 300mg BID. - WBC 10.7, no new fevers or cough (3) DVT prophylaxis Current Visit: No Status: Acute Base Code: Z29.9 - ENCOUNTER FOR PROPHYLACTIC MEASURES, UNSPECIFIED Comment: 02/19/19: -Pt is high risk for DVT based on age and decreased mobility -Lovenox 40mg SQ daily while in rehab (4) Full code status Current Visit: No Status: Acute Base Code: Z78.9 - OTHER SPECIFIED HEALTH STATUS Comment: 02/19/19: -Patient is a full code - Hospitalization Course Disposition: Home, Self-Care Reason For Discharge/Transfer: Medical Stability Hospital Course: 88 year old male patient presents for admission to swing bed after a hospitalization at [facility] for pneumonia. Patient was admitted for 3 days for treatment of pneumonia and hypotension. Patient was found to have significant physical deconditioning upon discharge. Patient was treated with Rocephin and doxycycline and clinical improvement noted. Patient discharged with doxycycline and cefdinir. Patient's past medical history includes COPD and CAD. PCP: Dr. Anaya 02/08/19: Patient A&O x 4, sitting comfortably in chair this morning. VS stable on room air, no complaints at this time. 02/19/19 1200- Sitting in bed comfortably, care conference completed today. No new interdisciplinary team concerns. Patient is close to meeting goals to return home with outpatient therapy services. Swing Bed course uneventful. Stable for discharge home tomorrow Abnormal Labs: Abnormal Lab Results 02/13/19 Range/Units 06:20 MCV 103.0 H (81-97) fl MCH 33.4 H (27-33) pg RDW 14.6 H (11.5-14.5) % Lymphocytes % 11.4 L (16-45) % Monocytes % 9.5 H (0-9) % Discharge Medications - Discharge Medications Prescriptions: Hydrocodone/APAP 7.5/325Mg [[place] 7.5MG/325Mg] 1 each PO Q4H PRN #15 tab PRN Reason: Pain - Mod To Severe (5-10) Home Medications: Ambulatory Orders Acetaminophen [Tylenol 500Mg Tab] 1,000 mg PO Q8HR tablet 10/07/18 [Last Taken 01/18/19] Aspirin Enteric-Coated [Ecotrin (EC)] 81 mg PO DAILY tabec 10/07/18 [Last Taken 01/17/19] Melatonin 5 mg PO QHS tablet 10/07/18 [Last Taken 01/17/19] Sennosides/Docusate Sodium [Senna Plus] 2 each PO BID PRN capsule 10/07/18 [Last Taken 01/17/19] Fluticasone Propionate [Flonase] 1 spray NA BID #1 btl 01/20/19 [Last Taken Unknown] Hydrocodone/APAP 7.5/325Mg [[place] 7.5MG/325Mg] 1 each PO Q4H PRN #15 tab 02/19/19 [Last Taken Unknown] Discharge Plan - Discharge Instructions Activity at Discharge: As Per Physical Therapy Diet at Discharge: Advance to Usual Diet Additional Instructions: Outpatient therapy with Nupur at [facility] on Saturday 02/24 at 10:30. Arrive at 10:15. Appointment with Dr. Anaya on Sun02/26/19 at 1:45PM Quality Measures - Quality Measures Quality Measures: Advance Directives, Documentation of Current Medications in Medical Record, Elder Maltreatment Screen and Follow-Up Plan, Screening for High Blood Pressure and F/U Documented - Current Medications Quality Measure: Measure #130: Documentation of Current Medications Documentation of Current Medications: <Current Medications Documented/Reviewed> [X5228] - Blood Pressure Screening Quality Measure: Screening for High Blood Pressure and Follow-Up Documented Does Patient Have Any of the Following: No Blood Pressure Classification: Normal BP Reading Systolic Measurement: 106 Diastolic Measurement: 58 Screening for High Blood Pressure: < Normal BP, F/U Not Required > [W8793] - Advance Directives Quality Measure: Measure #47: Care Plan Advance Directives Established: No Advance Directives Information Provided To Patient: No Advance Directives on File: No Living Will: Yes Power of Network Admin: Yes Power of Network Admin Name: Maria Teresa Roger and Rayne Carreon Advance Care Planning: <Care Plan/Decision Maker Documented; Discussed & Documented> [3493F] - Elder Abuse Suspicion Index Screening: Elder Abuse Suspicion Index Screening Rely on people for bathing, dressing, shopping, banking, etc: Yes Prevented from getting food, clothes, medication, etc: No Made to feel shamed or threatened by someone: No Forced to sign papers or use money against will: No Feel afraid, touched in ways not wanted or hurt physically: No Poor eye contact, withdrawn, malnourished, cuts or bruises: No Screening Result: Negative result EASI Reference Information: Braden TRUJILLO, Mari C, Cedric D, [place] Ospina.Development and validation of a tool to assist physicians identification of elder abuse: The Elder Abuse Suspicion Index (EASI ). Journal of Elder Abuse and Neglect, 2008; 20 (3): 276-300. - Elder Maltreatment Screen Quality Measures: Elder Maltreatment Screen and Follow-Up Plan Elder Maltreatment Screen: <Negative, No Follow-Up Plan Required> [G8734]
--- NOTE | 2019-02-19 14:46 | Occupational Therapy Tx Note ---
Occupational Therapy Tx Note - Treatment Note Tolerated: Fair Total Time Spent With Patient: 35 (ther ex) Occupational Therapy Treatment Note: Detail (S: Pt seen in rehab gym. He reports mirza shoulder soreness today. O: Passive pulleys x 20 reps each for shoulder flexion and ER at 90 degrees shoulder flexion. Pt transferred to mat table with CG assist and transferred sit to supine with mod assist to lift legs. Pt completed cane exercises x 10 reps each for shoulder flexion, horiz ab/adduction and ER/IR. PROM to mirza shoulder IR/ER and shoulder abduction x 5 reps with stretch followed by AROM to IR/ER x 10 reps each. Gentle MFR and massage to mirza shoulders with focus on deltoid and ant shoulder regions. Pt transported back to room via wheelchair and transferred into recliner with SBA. A: Pt continues with significant limitations in shoulder motion as well as pain which limit his functional use.) Occupational Therapy Problem List: Detail (1. Decreased Ind with total body dressing. 2. Decreased Ind with showering. 3. Decreased UE strength and overall endurance needed for safe and Ind self cares.) Occupational Therapy Goals: 1. Pt will be Ind with total body dressing using energy conservation techniques as needed. 2. Pt will be safe and Ind with showering in sitting and standing. 3. Pt will demonstrate improved UE strength and overall endurance needed for safe and Ind ADLs. Prognosis: Moderate Occupational Therapy Plan: OT 2-4 times per week to address goals as above. Thank you for this referral.
--- NOTE | 2019-02-19 15:55 | Physical Therapy Tx Note ---
Physical Therapy Tx Note - Treatment Note Tolerated: Good Total Time Spent With Patient: 35 Physical Therapy Tx Note: Detail (Patient stated that he had some pain in his shoulders but he was feeling good. He ambulated to the bathroom with his 4- wheeled walker. In the bathroom he was able to move from the toilet to the sink indpendently without an AD. He ambulated 60 feet with his straight cane independently. He had a shuffling gait pattern with the cane but he was safe. In the gym he performed: hip abduction x10 bilaterally, hip flexion x10 in standing bilaterally, squats x15, foam balance x30'', stepping onto foam and turning x5, stepping around cones and onto foam and back 6x5 feet. Patient required hand held assist of 2 to complete the exercises independently.) Physical Therapy Problem List: Detail (1. Gait abnormalities 2. Decreased tolerance for stairs 3. Decreased LE hip strength 4. Decreased standing balance 5. Assist needed for transfers) Physical Therapy Goals: 1. Patient will be able to ambulate 200 feet with a cane or walking stick independently to be able to walk in the community safely. 2. Patient will be able to ascend and descend 8 stairs with good technique to negotiate the stairs in his home. 3. Patient will demonstrate good stability with dynamic balance tasks for increased safety with gait and other functional tasks. 4. Patient will be consistently independent with sit to stand transfers. 5. Neelt's balance will be formally assessed using the Tinetti to assess patient's fall risk. Physical Therapy Plan: Patient will be seen 1-2x a day, M-F, for gait training, stair training, therapeutic exercises and activities, and neuromuscular re- education.
[2019-02-19] MEDS: MELATONIN MC SCH (21:13)
[2019-02-20] MEDS: ENOXAPARIN 40 MG/0.4 ML SYR SQ SCH (09:34)
[2019-02-20] MEDS: ASPIRIN 81 MG TABEC PO SCH (09:34)
[2019-02-20] MEDS: PRESERVISION MC SCH (09:35)
[2019-02-20] MEDS: [UNRECOGNIZED DRUG - OTHER] MC SCH (09:35)
[2019-02-20] MEDS: VITAMIN B COMPLEX MC SCH (09:35)
[2019-02-20] MEDS: FLUTICASONE EACH NARES SCH (09:36)
[2019-02-20] MEDS: SOLIFENACIN 5 MG PO SCH (09:36)
[2019-02-20] MEDS: VITAMIN B12 1000 MCG MC SCH (09:36)
[2019-02-20] MEDS: VITAMIN D3 1000 UNIT MC SCH (09:36)
[2019-02-20] MEDS: VITAMIN E MC SCH (09:40)
[2019-02-20] MEDS: [UNRECOGNIZED DRUG - OTHER] PO SCH (09:40)
[2019-02-20] MEDS: VITAMIN C MC SCH (09:40)
[2019-02-20] MEDS: SUPER BEETS MC SCH (09:40)
[2019-02-20] MEDS: [UNRECOGNIZED DRUG - OTHER] MC SCH (09:40)
[2019-02-20] MEDS: GLUCOSAMINE COMPLEX MC SCH (09:40)
--- NOTE | 2019-02-20 11:12 | Physical Therapy Tx Note ---
Physical Therapy Tx Note - Treatment Note Tolerated: Good Total Time Spent With Patient: 20 Physical Therapy Tx Note: Detail (Patient was seated in chair upon SPACE CONTROL AGENT arrival. Patient transferred sit to and from stand CGA x1. Patient ambulated 90 feet with cane CGA x1. Patient transferred sit to and from stand x7 reps without using hands. Patient transferred sit to and from stand x2 CGA x1. Patient performed the following balance exercises x15 seconds each: feet together, feet together with head movements, feet together with eyes closed, feet together with pertubations, stride stance, and standing marching. Patient tolerated treatment well. Patient required one seated rest break with standing balance exercises due to fatigue. Patient reports feeling good after treatment. Patient was left seated in chair with call light within reach.) Physical Therapy Problem List: Detail (1. Gait abnormalities 2. Decreased tolerance for stairs 3. Decreased LE hip strength 4. Decreased standing balance 5. Assist needed for transfers) Physical Therapy Goals: 1. Patient will be able to ambulate 200 feet with a cane or walking stick independently to be able to walk in the community safely. 2. Patient will be able to ascend and descend 8 stairs with good technique to negotiate the stairs in his home. 3. Patient will demonstrate good stability with dynamic balance tasks for increased safety with gait and other functional tasks. 4. Patient will be consistently independent with sit to stand transfers. 5. Paitent's balance will be formally assessed using the Tinetti to assess patient's fall risk. Prognosis: Good Physical Therapy Plan: Patient will be seen 1-2x a day, M-F, for gait training, stair training, therapeutic exercises and activities, and neuromuscular re- education.
--- NOTE | 2019-02-21 09:35 | Rehab Discharge Summary ---
Patient Information - Patient Information Diagnosis: Deconditioning due to Pneumonia Ordered Treatment: PT Evaluate and Treat Surgery: No History: Detail (Patient was admitted to a swing bed on 02/07/19 after a bout of pneumonia.) Past Medical/Surgical Hx: PAST MEDICAL/SURGICAL HISTORY Past Surgical History apendix gallbladder heart bypass X2 shoulder sx 09/2018 spinal stimulator trial eye sx on eyelids PMH - Respiratory Hx Respiratory Disorders Yes Hx Chronic Obstructive Yes Pulmonary Disease (COPD) Hx Sleep Apnea Yes Hx of CPAP Yes PMH - Cardiovascular Hx Cardiovascular Disorders Yes Hx Abnormal EKG Yes Hx Cardiac Catheterization Yes Hx Edema Yes Hx Heart Attack Yes Hx Irregular Heartbeat Yes PMH - Neuro Hx Neurological Disorders No PMH - GI Hx Gastrointestinal Disorders No PMH - Hx Genitourinary Disorders Yes Hx Bladder Problem Yes: prostate surgery Hx Kidney Stones Yes Hx Prostate Problems Yes Comment: No control after surgery PMH - Endocrine Hx Endocrine Disorders No Hx Diabetes No Hx Thyroid Disease No PMH - Musculoskeletal Hx Musculoskeletal Disorders Yes Hx Arthritis Yes: bilateral shoulders PMH - Psych Hx Psychiatric Problems No Hx Depression Yes PMH - Hematology/Oncology Hx Hematology/Oncology No Disorders Premorbid Status: Detail (Patient reports that he only used his cane a little before being admitted to the hospital, and that he was able to walk to his mailbox. He said he was able to walk in the home without an AD and he used the furniture to hang onto to maintain his balance. He stated that he lives with his daughter and son-in-law and they do the cooking, cleaning, and laundry for him. Patient reports that he stood to shower and was able to shower and dress independently.) Social History: Detail (Patient lives in a tri-level home with his daughter and son-in-law. His bedroom is on the third floor with bathrooms on the first and third floors. There are 8 steps to get to his bedroom with railings on both sides of the stairs. There are 3 steps to enter the home with a railing on the R. The bathroom that the patient uses had a walk-in shower and a shower bench. There is also an elevated toilet seat with grab bars by the toilet and in the shower. The patient has a 4-wheeled walker, a quad cane, and a walking stick available to use.) Precautions: [place], Fall Objective Data - Mental Status Patient Orientation: Oriented x3 - Visual Perception Appears within normal limits for therapeutic activities - ROM Within normal limits (Bilateral LE AROM is within normal limits for functional activities.) - Strength/Tone Other (Bilateral hip flexion and abduction: 4/5, Bilateral hip adduction, knee flexion and extension, and ankle dorsiflexion 5/5) - Coordination Appears within normal limits for therapeutic activities - Bed Mobility Independent (Patient was independent in bed mobility.) - Transfers Independent (Patient was regularly independent in transferring from sit to stand and stand to sit. He improved in these transfers by being able to complete them without the use of his arms to help try to decrease the pain in his shoulders.) - Balance Balance Sitting: Good Balance Standing: Good (Balance improved upon his standing balance since the time of initial evaluation. He improved his score on the Tinetti from 03/13 to , moving him from the high risk to moderate risk category for falls. He was able to complete dynamic balance tasks such as moving from the toilet to the sink and washing his hands without needing an AD and he was more stable in completing these tasks.) - Sensation Intact - Gait Detail (Patient was able to ambulate 60 feet with his cane independently. With a cane he has a shuffling gait pattern. He was safe to use the cane. With the 4- wheeled walker he was able to ambulate up to 200 feet independently. When walking with the walker he had increased step length and appeared to be more stable. Patient stated that he was more likely to use his cane or walking stick at home than the walker. He was able to complete stair training over 13 stairs independently. He was fatigued at the end of completing stairs but was able to ambulate up to 50 feet after stairs before needing to rest. Patient reported that he felt good about being able to complete the stairs at his home.) Therapy Assessment - Therapy Assessment Detail (During his time in inpatient therapy, the patient improved upon his standing balance and endurance. He was able to move from a high to moderate fall risk on the balance assessment and demonstrated increased stability with dynamic balance tasks. He was also able to walk longer distances without becoming fatigued. In ascending and descending the stairs, he was able to build up to doing 13 stairs independently but was fatigued at the end. He is being discharged from inpatient physical therapy at this time secondary to meeting 4.5/5 of his goals. Outpatient physical therapy is being recommended for the patient to continue to improve upon his balance, endurance, and lower extremity strengthening.) Problem List - Problem List Physical Therapy Problem List: Detail (1. Gait abnormalities 2. Decreased tolerance for stairs 3. Decreased LE hip strength 4. Decreased standing balance 5. Assist needed for transfers) Occupational Therapy Problem List: Detail (1. Decreased Ind with total body dressing. 2. Decreased Ind with showering. 3. Decreased UE strength and overall endurance needed for safe and Ind self cares.) Goals - Goals Physical Therapy Goals: 1. Patient will be able to ambulate 200 feet with a cane or walking stick independently to be able to walk in the community safely. Partially Met. 2. Patient will be able to ascend and descend 8 stairs with good technique to negotiate the stairs in his home. Goal met. 3. Patient will demonstrate good stability with dynamic balance tasks for increased safety with gait and other functional tasks. Goal met. 4. Patient will be consistently independent with sit to stand transfers. Goal met. 5. Paitent's balance will be formally assessed using the Tinetti to assess patient's fall risk. Goal met Occupational Therapy Goals: 1. Pt will be Ind with total body dressing using energy conservation techniques as needed. 2. Pt will be safe and Ind with showering in sitting and standing. 3. Pt will demonstrate improved UE strength and overall endurance needed for safe and Ind ADLs. Plan - Plan Physical Therapy Plan: Patient has been discharged from inpatient physical therapy at this time. He is being recommended for outpatient PT. Occupational Therapy Plan: OT 2-4 times per week to address goals as above. Thank you for this referral.
--- NOTE | 2019-02-28 07:56 | Rehab Discharge Summary ---
Patient Information - Patient Information Diagnosis: Deconditioning due to Pneumonia Ordered Treatment: OT Evaluate and Treat Surgery: No History: Detail (Patient was admitted to a swing bed on 02/07/19 after a bout of pneumonia.) Past Medical/Surgical Hx: PAST MEDICAL/SURGICAL HISTORY Past Surgical History apendix gallbladder heart bypass X2 shoulder sx 09/2018 spinal stimulator trial eye sx on eyelids PMH - Respiratory Hx Respiratory Disorders Yes Hx Chronic Obstructive Yes Pulmonary Disease (COPD) Hx Sleep Apnea Yes Hx of CPAP Yes PMH - Cardiovascular Hx Cardiovascular Disorders Yes Hx Abnormal EKG Yes Hx Cardiac Catheterization Yes Hx Edema Yes Hx Heart Attack Yes Hx Irregular Heartbeat Yes PMH - Neuro Hx Neurological Disorders No PMH - GI Hx Gastrointestinal Disorders No PMH - Hx Genitourinary Disorders Yes Hx Bladder Problem Yes: prostate surgery Hx Kidney Stones Yes Hx Prostate Problems Yes Comment: No control after surgery PMH - Endocrine Hx Endocrine Disorders No Hx Diabetes No Hx Thyroid Disease No PMH - Musculoskeletal Hx Musculoskeletal Disorders Yes Hx Arthritis Yes: bilateral shoulders PMH - Psych Hx Psychiatric Problems No Hx Depression Yes PMH - Hematology/Oncology Hx Hematology/Oncology No Disorders Premorbid Status: Detail (Patient reports that he only used his cane a little before being admitted to the hospital, and that he was able to walk to his mailbox. He said he was able to walk in the home without an AD and he used the furniture to hang onto to maintain his balance. He stated that he lives with his daughter and son-in-law and they do the cooking, cleaning, and laundry for him. Patient reports that he stood to shower and was able to shower and dress independently.) Social History: Detail (Patient lives in a tri-level home with his daughter and son-in-law. His bedroom is on the third floor with bathrooms on the first and third floors. There are 8 steps to get to his bedroom with railings on both sides of the stairs. There are 3 steps to enter the home with a railing on the R. The bathroom that the patient uses had a walk-in shower and a shower bench. There is also an elevated toilet seat with grab bars by the toilet and in the shower. The patient has a 4-wheeled walker, a quad cane, and a walking stick available to use.) Precautions: [place], Fall Objective Data - Pain Pain Present: Yes (Hernandez shoulder pain) - Mental Status Patient Orientation: Oriented x3 - Visual Perception Appears within normal limits for therapeutic activities - ROM Not within normal limits (Overall hernandez UE AROM unchanged from initial evaluation) - Strength/Tone Not within normal limits (Unchanged from initial evaluation) - Coordination Appears within normal limits for therapeutic activities - Bed Mobility Independent - Transfers Independent (Ind unless pt is very fatigued) - Balance Balance Sitting: Good Balance Standing: Fair - Sensation Intact - Gait Detail (Pt ambulating household distances with 4 wheeled walker Indly) - ADL's/IADL's Detail (Pt requires min assist for total body dressing due to decreased shoulder motion, he is Ind with showering and grooming and hygiene) Therapy Assessment - Therapy Assessment Detail (Pt requires min assist to pull pants over hips and buttocks due to decreased shoulder motion and strength.) Problem List - Problem List Physical Therapy Problem List: Detail (1. Gait abnormalities 2. Decreased tolerance for stairs 3. Decreased LE hip strength 4. Decreased standing balance 5. Assist needed for transfers) Occupational Therapy Problem List: Detail (1. Decreased Ind with total body dressing. 2. Decreased Ind with showering. 3. Decreased UE strength and overall endurance needed for safe and Ind self cares.) Goals - Goals Physical Therapy Goals: 1. Patient will be able to ambulate 200 feet with a cane or walking stick independently to be able to walk in the community safely. Partially Met. 2. Patient will be able to ascend and descend 8 stairs with good technique to negotiate the stairs in his home. Goal met. 3. Patient will demons trate good stability with dynamic balance tasks for increased safety with gait and other functional tasks. Goal met. 4. Patient will be consistently independent with sit to stand transfers. Goal met. 5. Paitent's balance will be formally assessed using the Tinetti to assess patient's fall risk. Goal met Occupational Therapy Goals: Goal partially met - 1. Pt will be Ind with total body dressing using energy conservation techniques as needed. Goal met - 2. Pt will be safe and Ind with showering in sitting and standing. Goal not met - 3. Pt will demonstrate improved UE strength and overall endurance needed for safe and Ind ADLs. Prognosis - Prognosis Moderate Plan - Plan Physical Therapy Plan: Patient has been discharged from inpatient physical therapy at this time. He is being recommended for outpatient PT. Occupational Therapy Plan: Pt has been discharged home.
== END 2019-02-20 12:24 | disposition home or self-care (01) | DRG 195 ==
LOC: MEDSURG 16:06
PROVIDERS: ADMIT Internal Medicine; ATTEND Internal Medicine
DX: J18.9 Pneumonia, unspecified organism (principal); Z87.01 Personal history of pneumonia (recurrent); I95.9 Hypotension, unspecified; J44.9 Chronic obstructive pulmonary disease, unspecified; I25.10 Atherosclerotic heart disease of native coronary artery without angina pectoris; G47.33 Obstructive sleep apnea (adult) (pediatric); R32 Unspecified urinary incontinence; R60.9 Edema, unspecified
CPT/HCPCS: 85025; 97110; 99306; J1650